=== PATIENT | male | born 1945 | race Caucasian/White ===

== ENCOUNTER → 2021-11-11 10:42 | Outpatient (CLI) | payer OTHER, SELFPAY ==
--- NOTE | 2021-11-11 11:01 | DI.CT.S_ITS ---
PROCEDURE: CT CERVICAL SPINE WO CON INDICATIONS: Paraplegia TECHNIQUE: Noncontrast 3 mm thick sections acquired from the skull base to the T4 level. Sagittal and coronal reformats were then constructed. For radiation dose reduction, the following was used: automated exposure control, adjustment of mA and/or kV according to patient size. COMPARISON: None. FINDINGS: Image quality: Excellent. Bones: Postsurgical changes compatible with T1-T4 posterior fusion and C2-C4 laminectomies.. Orthopedic hardware is in expected position. Orthopedic hardware is intact. No lucencies identified at the bone-hardware interface. Flowing osteophytes noted from C4-T1. Moderate C4-C5, C5-C6, C6-C7 and C7-T1 degenerative disc disease. Mild C2-C3 and C3-C4 degenerative disc disease. Severe bilateral C3-C4 facet hypertrophy. Moderate facet hypertrophy noted through the remainder of the cervical spine. No severe central canal narrowing. Severe right C3-C4 neural foraminal narrowing. Severe left C6-C7 neural foraminal narrowing. No fractures or dislocations. Visualized superior ribs are intact. Soft tissues: Prevertebral soft tissues are normal in thickness. No paravertebral hematomas. No apical pneumothoraces. IMPRESSION: 1. Multilevel degenerative disc disease. 2. Multilevel facet arthropathy. 3. No fracture. No acute osseous lesion. If symptoms and/or clinical suspicion for pathology persists, evaluation with MRI should be considered for further assessment. 4. Status post T1-T4 posterior fusion and C2-C4 laminectomies. Dictated by: Linda Plaza MD, PhD on 11/27/2021 at 11:09 Approved by: Linda Plaza MD, PhD on 11/27/2021 at 11:14
== END ==
PROVIDERS: PCP Internal Medicine; Referring Provider Physical Medicine & Rehabilitation Spinal Cord Injury Medicine; Visit Provider Physical Medicine & Rehabilitation Spinal Cord Injury Medicine
DX: G82.22 Paraplegia, incomplete (principal); M50.321 Other cervical disc degeneration at C4-C5 level; M48.02 Spinal stenosis, cervical region; M47.812 Spondylosis without myelopathy or radiculopathy, cervical region; Z98.1 Arthrodesis status
CPT/HCPCS: 72125

== ENCOUNTER → 2021-12-25 11:28 | Outpatient (CLI) | payer BC, SELFPAY ==
[2021-12-25 13:01] LABS: Hemoglobin A1C% w Est Avg Glu 5.5 % (4.0-6.0)
[2021-12-25 13:07] LABS: Alanine Aminotransferase 10 IU/L (<50); Albumin 4.2 g/dL (3.5-5.0); Albumin Globulin Ratio 1.6 (1.0-2.8); Alkaline Phosphatase 69 U/L (38-126); Aspartate Aminotransferase 18 IU/L (17-59); BUN Creatinine Ratio 26.9 (6-22); Bilirubin Total 0.9 mg/dL (0.2-1.3); Blood Urea Nitrogen 28 mg/dL (9-20); Calcium 9.4 mg/dL (8.4-10.2); Carbon Dioxide 34 mmol/L (22-32); Chloride 102 mmol/L (98-107); Estimated Glomerular Filt Rate > 60 mL/min (>60); Globulin 2.6 g/dL (1.7-4.1); Glucose 92 mg/dL (80-110); HEMOLYSIS 19 (0-50); Potassium 4.8 mmol/L (3.4-5.1); Sodium 138 mmol/L (137-145); Total Protein 6.8 g/dL (6.3-8.2)
== END ==
PROVIDERS: PCP Internal Medicine; Referring Provider Internal Medicine; Visit Provider Internal Medicine
DX: N18.31 Chronic kidney disease, stage 3a (principal); R73.03 Prediabetes
CPT/HCPCS: 36415; 80053; 83036

== ENCOUNTER 2022-09-16 09:30 | Outpatient (RCR) | payer OTHER, SELFPAY ==
--- NOTE | 2022-06-09 17:29 | PT.OIE ---
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) Past Medical History (Last Updated 11/19/21 @ 12:04 by Mariusz Hernandez MD) Asthma (~1962) Borderline diabetes BPH w urinary obs/LUTS Chronic renal failure, stage 3a Hypertension (~1979) Hypogonadism male Peripheral neuropathy Sleep apnea (~1998) Spinal cord injury Uses walker Uses wheelchair Past Surgical History (Last Updated 11/19/21 @ 12:04 by Mariusz Hernandez MD) Anesthesia Status post laminectomy (04/14/21) Visit Care Team Role Provider Type Júnior Choi Rai, DO Non-Staff Specialty: Family Practice Address: [address] [place] [address], [id number] Email: Mariusz Hernandez MD Primary Care Provider Physician Specialty: Internal Medicine Address: [address] [place] [address], [address], [address] Email: [email or web address] Provider Specialty: Address: Phone: Fax: Email: Adrienne Smith MD Attending Provider Non-Staff Referring Provider Specialty: Physical Medicine and Rehab Address: [address] [place] [address], [id number] Email: Physical Therapy Initial Evaluation PT-OP-A Visit Information Start: 06/08/22 12:11 Freq: Status: Active Protocol: Document 06/09/22 09:49 [facility]AK (Rec: 06/09/22 15:11 [facility] [id number]) Out-Patient Physical Therapy Visit Information Visit Information Visit Start Time 09:45 Visit Stop Time 10:30 Total Visit Minutes 45 Visit Number 1 Evaluation Information Evaluation Date 06/09/22 Precautions Precautions high fall risk PT-OP-B Current Condition Start: 06/08/22 12:11 Freq: Status: Active Protocol: Document 06/09/22 09:49 SAK (Rec: 06/09/22 10:30 [facility] [id number]) Current Condition History of Current Condition Onset Date 04/12/21 Current Complaints weakness, balance and gait difficulty History of Current Condition Fell while walking, fractured T34. Had fusion, 5 wks [facility], then at at [place] until July 23 2021. Was at [facility] until the end of January. [place], 2 story house. Bedroom and bathroom on main floor. Uses 3WW, 4WW, has canes. Wants to wean off walker. Balance and fear of falling limit his mobility, has had a couple near falls since going home. Also has some nerve pain left ant and post chest. Was instructed in HEP, not doing theraband exercises. Is working on standing balance. Very little feeling in thighs, has some in lower legs and feet, the most feeling is in bottom of feet. On and off bowel and bladder issues. Prior Treatments and Tests 05/21/22: check-up at [place], all medical issues st able Treatment Goals Patient/Caregiver Goals play golf again, drive, walk without walker, in and out of car independent Prior Functional Status Baseline Function- ADL's Independent Baseline Function- Mobility Independent Baseline Function- Gait no device Baseline Function- Recreation/Hobbies golf Current Functional Impairments (Reported) Functional Limitations- ADL's caregiver: transportation, cleaning, cooking. Modified independent with self-care. Functional Limitations- Mobility/Gait needs device, high risk for falls. Functional Limitations- Work/School retired Functional Limitations- Recreation/ golf Hobbies Personal Factors Other Personal Factors That May Effect PMH: LBP, neck pain Therapy/Recovery PT-OP-C Subjective Start: 06/08/22 12:11 Freq: Status: Active Protocol: Document 06/09/22 09:49 [facility] (Rec: 06/09/22 10:30 [facility] [id number]) OP-PT Pain Assessment Pain Assessment Grid Paper Pain Assessment Grid Completed Yes Location low back, left chest/upper back Intensity 3 Description Aching,Burning PT-OP-D Balance Start: 06/08/22 12:11 Freq: Status: Active Protocol: Document 06/09/22 09:49 [facility] (Rec: 06/14/22 17:24 [facility] [id number]) OP-PT Balance Assessment Sitting Balance Static Sitting Balance Ability Normal Dynamic Sitting Balance Ability Normal Standing Balance Static Standing Balance Ability Fair Dynamic Standing Balance Ability Poor Lester Balance Assessment Evaluation Sitting to Standing Ability Independent w/Hands Unsupported Stance Supervision- 2 minutes Sitting Unsupported, Feet on Floor Safely- 2 minutes Standing to Sitting Ability Assist, Use Legs on Chair Transfer Ability Safely, Hand Use Unsupported Stance- Eyes Closed Supervision, 10 seconds Unsupported Stance- Eyes Open Supervision to maintain Reaching Forward Standing Safely, 5 inches Pick- Up Object From Floor Requires Supervision Look Behind Shoulder - Standing Turns Sideways Only Turning 360 Degrees Requires Assistance Unsupported Stance, Alternating Feet on Assist to Prevent Fall Stair Unsupported Tandem Stance Balance Lost- Step/Stand Unilateral Leg Stance Unable,assist to not fall Total Score Lester Total Score (out of 56 points) 27 Cadet Fall Scale Copyright Permission PT-OP-E Functional Tests Start: 06/08/22 12:11 Freq: Status: Active Protocol: Document 06/09/22 09:49 [facility] (Rec: 06/14/22 17:24 [facility] [id number]) Functional Tests Timed Up and Go (TUG) Score 22 sec Comments 4WW PT-OP-G Mobility & Gait Start: 06/08/22 12:11 Freq: Status: Active Protocol: Document 06/09/22 09:49 [facility] (Rec: 06/14/22 17:24 [facility] [id number]) OP Mobility Evaluation Bed Mobility Rolling indep Supine to and from Sit indep OP Gait Assessment Gait Gait Assistance Required: Independent Assistive Devices Assistive Device 4 Wheeled Walker Orthotic/Prosthetic Devices or Brace: No Gait Deviations General Gait Pattern Ataxic,Decreased Stride Length ,Decreased Feet Clearance, Flexed Trunk,Wide Based Gait Factors Limiting Gait Function Factors Limiting Gait Function Abnormal Tonal Influences, Decreased Sensation,Decreased Strength,Poor Balance Stair Climbing Evaluation Technique/Endurance Stair Climbing Direction Ascend and Descend Comments Stair Climbing Comments sideways holding railing PT-OP-H Neuro Start: 06/08/22 12:11 Freq: Status: Active Protocol: Document 06/09/22 09:49 [facility] (Rec: 06/14/22 17:24 [facility] [id number]) Sensation Evaluation Gross Sensation Gross Sensation Left LE Impaired,Right LE Impaired Sensation Description Numbness PT-OP-J Posture/Palpation/Skin Start: 06/08/22 12:11 Freq: Status: Active Protocol: Document 06/09/22 09:49 [facility] (Rec: 06/14/22 17:24 [facility] [id number]) Posture Evaluation Position Standing Head/C-Spine Posture Forward Head T-Spine Posture Increased Kyphosis L-Spine Posture Flattened Skin Assessment Incisional Assessment Incision Appearance/Comments well-healed, decreased scar mobility PT-OP-K Range of Motion Start: 06/08/22 12:11 Freq: Status: Active Protocol: Document 06/09/22 09:49 [facility] (Rec: 06/14/22 17:24 [facility] [id number]) Cervical Spine Range of Motion Cervical Spine Active Testing Position Sitting ROM Limitations Soft Tissue Tightness Comments approx 75% Shoulder Goniometric Range of Motion Shoulder john Shoulder ROM WFL No Comments mild dec all motions Shoulder ROM Limitations Shoulder ROM Limitations Muscle Weakness Elbow/Forearm Range of Motion Elbow/Forearm john Elbow/Forearm ROM WFL Yes Wrist Goniometric Range of Motion Wrist john Wrist ROM WFL Yes Hip Goniometric Range of Motion Hip john Hip ROM WFL No Flexion w/Knee Flexed 90 Straight Leg Raise 65 Extension 0 Abduction 2 Internal Rotation 15 External Rotation 45 Hip ROM Limitations Hip ROM Limitations Soft Tissue Tightness,Muscle Weakness Knee Goniometric Range of Motion Knee john Knee ROM WFL Yes Ankle and Foot Goniometric Range of Motion Ankle and Foot john Dorsiflexion with Knee Flexed 5 Dorsiflexion with Knee Extended 0 Ankle and Foot ROM Limitations ROM Limitations Soft Tissue Tightness PT-OP-M Strength Start: 06/08/22 12:11 Freq: Status: Active Protocol: Document 06/09/22 09:49 [facility] (Rec: 06/14/22 17:24 [facility] [id number]) Cervical Spine Strength Cervical Spine Manual Muscle Testing Testing Position Sitting Flexion (C1-2) 4+ Good+ Extension 4+ Good+ Rotation Left 4+ Good+ Rotation Right 4+ Good+ Lateral Flexion Left (C3) 4+ Good+ Lateral Flexion Right (C3) 4+ Good+ Trunk Strength Trunk Manual Muscle Testing Flexion 3+ Fair+ Extension 3+ Fair+ Shoulder Strength Shoulder Manual Muscle Testing john Flexion 4 Good Extension 4 Good Abduction (C5) 4 Good External Rotation 4 Good Internal Rotation 4 Good Elbow/Forearm Strength Elbow and Forearm Manual Muscle Testing john Flexion (C6) 4+ Good+ Extension (C7) 4+ Good+ Hip Strength Hip Manual Muscle Testing john Flexion (L2) 4 Good Extension (S1) 3+ Fair+ Adduction 4 Good External Rotation 3+ Fair+ Internal Rotation 4 Good Knee Strength Knee Manual Muscle Testing john Flexion (S2) 4- Good- Extension (L3) 4- Good- Ankle/Foot Strength Ankle and Foot Manual Muscle Testing john Dorsiflexion (L4) 4 Good Plantarflexion (S1) 4 Good PT-OP-Q Treatments Start: 06/08/22 12:11 Freq: Status: Active Protocol: Document 06/09/22 09:49 [facility] (Rec: 06/14/22 17:24 [facility] [id number]) Self-Care/Home Management Treatment Education Patient Education Fall Risk,Home Exercise Program,Safety PT-OP-T Assessment and Plan Start: 06/08/22 12:11 Freq: Status: Active Protocol: Document 06/09/22 09:49 [facility] (Rec: 06/09/22 10:30 [facility] [id number]) Physical Therapy Assessment Rehab Potential Rehabilitation Potential Good Evaluation Complexity Number of Personal Factors/Comorbidities 1-2 Number of Body Systems Impaired 3 Clinical Presentation at Evaluation Evolving Impairments Impairments Balance,Coordination, Functional Mobility,Gait, Strength,Transfers Goals Four Impairment patient unable to golf due to weakness, gait and balance dysfunction Short Term Goal (STG) Patient to improve functional strength, gait, and balance sufficient to be able to put golf ball on tonja with CGA and hit ball with min assist for balance STG Duration 07/24/22 Detention Goal (LTG) Patient will improve his functional strength, gait, and balance to be able to play golf with supervision only LTG Duration 09/11/22 Three Impairment trunk and LE weakness Impairment requires use of UE's for all transfers Short Term Goal (STG) Patient to be instructed in HEP to support therapy activities in the clinic and demonstrate compliance STG Duration 07/07/22 Detention Goal (LTG) Improve patient's functional strength as evidenced by ability to transfer sit to stand from standard height chair without use of UE's x 10 LTG Duration 09/06/22 Two Impairment gait dysfunction Impairment uses 4WW, 3WW primarily, has to go up and down stairs sideways 6 min walk test with 3WW 681 ft Short Term Goal (STG) Patient will be able to safely ascend and descend stairs with alternating pattern and begin gait training with 2 canes on level surfaces STG Duration 07/24/22 [facility] Goal (LTG) Patient will be able to ambulate on all usual surfaces safely with 1-2 canes and improve 6 min walk test to at least 1000 ft to improve ability to ambulate successfully in the community. LTG Duration 09/06/22 One Impairment balance dysfunction Impairment Lester Balance score 27/56 indicating high fall risk Short Term Goal (STG) Improve Lester balance score to at least 37/56 to decrease risk of falls STG Duration 07/24/22 Detention Goal (LTG) Improve Lester Balance score to at least 45/56 to decrease risk of falls, allow for safe mobility in the home and community LTG Duration 09/06/22 Assessment Summary Assessment Patient presents to PT with function-limiting weakness, and gait and balance dysfunction, limiting his safety in the home and community s/p T3/4 fracture with fusion, extended stay at [facility] then [place] rehab. Is now home at his house/farm on [facility]. Has weakness john LE's right greater than left, ataxic gait , is at high risk of falls, ankle df right 2+/5, pf 3/5, knee ext 4+/5,flex 4/5, hip right 3-/5, left 3+/5. Ambulates with 4WW or 3WW, and has to go up and down stairs sideways. He would benefit highly from physical therapy to improve his strength, balance, gait, and safety to help him be more safe with mobility in his home and community. He appears highly motivated. We discussed POC and he is in agreement. Physical Therapy Plan Frequency and Duration Frequency of Treatment 2x/Week Duration of treatment (weeks) 12 Plan of Care Start Date 06/09/22 Plan of Care End Date 09/06/22 Therapeutic Interventions Therapeutic Interventions Balance Training,Gait Training ,Home Exercise Program,Manual Therapy,Neuromuscular Re- education,Patient/Caregiver Education,Self-Care/Home Management,Soft Tissue Mobilization,Therapeutic Activities,Therapeutic Exercises Next Visit Focus/Plan Next Note Type Treatment Note Next Visit Plan Patient to bring in written HEP previously issued in inpatient rehab; review HEP. Perform TUG and 5x sit to stand. Work in parallel bars for gait with dec support. Progress LE strengthening, balance, and gait.
--- NOTE | 2022-06-09 17:29 | PT.OPPOC ---
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) Visit Care Team Role Provider Type Júnior Choi Rai, DO Non-Staff Specialty: Family Practice Address: [address] [place] [address], [id number] Email: Mariusz Hernandez MD Primary Care Provider Physician Specialty: Internal Medicine Address: [address] [place] [address], [address], [address] Email: [email or web address] Family Provider Specialty: Address: Phone: Fax: Email: Adrienne Smith MD Attending Provider Non-Staff Referring Provider Specialty: Physical Medicine and Rehab Address: [address] [place] [address], [address] Email: Plan Of Care PT-OP-T Assessment and Plan Start: 06/08/22 12:11 Freq: Status: Active Protocol: Document 06/09/22 09:49 [facility] (Rec: 06/09/22 10:30 [facility] [id number]) Physical Therapy Assessment Rehab Potential Rehabilitation Potential Good Evaluation Complexity Number of Personal Factors/Comorbidities 1-2 Number of Body Systems Impaired 3 Clinical Presentation at Evaluation Evolving Impairments Impairments Balance,Coordination, Functional Mobility,Gait, Strength,Transfers Goals Four Impairment patient unable to golf due to weakness, gait and balance dysfunction Short Term Goal (STG) Patient to improve functional strength, gait, and balance sufficient to be able to put golf ball on tonja with CGA and hit ball with min assist for balance STG Duration 07/24/22 [facility] Goal (LTG) Patient will improve his functional strength, gait, and balance to be able to play golf with supervision only LTG Duration 09/11/22 Three Impairment trunk and LE weakness Impairment requires use of UE's for all transfers Short Term Goal (STG) Patient to be instructed in HEP to support therapy activities in the clinic and demonstrate compliance STG Duration 07/07/22 [facility] Goal (LTG) Improve patient's functional strength as evidenced by ability to transfer sit to stand from standard height chair without use of UE's x 10 LTG Duration 09/06/22 Two Impairment gait dysfunction Impairment uses 4WW, 3WW primarily, has to go up and down stairs sideways 6 min walk test with 3WW 681 ft Short Term Goal (STG) Patient will be able to safely ascend and descend stairs with alternating pattern and begin gait training with 2 canes on level surfaces STG Duration 07/24/22 [facility] Goal (LTG) Patient will be able to ambulate on all usual surfaces safely with 1-2 canes and improve 6 min walk test to at least 1000 ft to improve ability to ambulate successfully in the community. LTG Duration 09/06/22 One Impairment balance dysfunction Impairment Lester Balance score 27/56 indicating high fall risk Short Term Goal (STG) Improve Lester balance score to at least 37/56 to decrease risk of falls STG Duration 07/24/22 [facility] Goal (LTG) Improve Lester Balance score to at least 45/56 to decrease risk of falls, allow for safe mobility in the home and community LTG Duration 09/06/22 Assessment Summary Assessment Patient presents to PT with function-limiting weakness, and gait and balance dysfunction, limiting his safety in the home and community s/p T3/4 fracture with fusion, extended stay at [facility] then [place] rehab. Is now home at his house/farm on [facility]. Has weakness john LE's right greater than left, ataxic gait , is at high risk of falls, ankle df right 2+/5, pf 3/5, knee ext 4+/5,flex 4/5, hip right 3-/5, left 3+/5. Ambulates with 4WW or 3WW, and has to go up and down stairs sideways. He would benefit highly from physical therapy to improve his strength, balance, gait, and safety to help him be more safe with mobility in his home and community. He appears highly motivated. We discussed POC and he is in agreement. Physical Therapy Plan Frequency and Duration Frequency of Treatment 2x/Week Duration of treatment (weeks) 12 Plan of Care Start Date 06/09/22 Plan of Care End Date 09/06/22 Therapeutic Interventions Therapeutic Interventions Balance Training,Gait Training ,Home Exercise Program,Manual Therapy,Neuromuscular Re- education,Patient/Caregiver Education,Self-Care/Home Management,Soft Tissue Mobilization,Therapeutic Activities,Therapeutic Exercises Next Visit Focus/Plan Next Note Type Treatment Note Next Visit Plan Patient to bring in written HEP previously issued in inpatient rehab; review HEP. Perform TUG and 5x sit to stand. Work in parallel bars for gait with dec support. Progress LE strengthening, balance, and gait. Plan of Care Dates Plan of Care Start Date 06/09/22 Plan of Care End Date 09/06/22 Electronically Signed by: Natalie Zhang, PT 06/14/22 [id number] If you are in agreement with this Plan of Care, please return a signed and dated copy. I have reviewed this Plan of Care and certify that the skilled therapy services above are required to meet the patient?s needs. Physician Signature Date Printed Name and Credentials Clinical Instructor Signature Printed Name and Credentials
--- NOTE | 2022-06-16 16:37 | PT.OTN ---
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) Physical Therapy Treatment Note PT-OP-A Visit Information Start: 06/08/22 12:11 Freq: Status: Active Protocol: Document 06/16/22 10:30 SAK (Rec: 06/16/22 11:18 SAK [id number]) Out-Patient Physical Therapy Visit Information Visit Information Visit Type Treatment Note Visit Start Time 10:30 Visit Stop Time 11:15 Total Visit Minutes 45 Visit Number 2 Evaluation Information Evaluation Date 06/09/22 Precautions Precautions high fall risk PT-OP-B Current Condition Start: 06/08/22 12:11 Freq: Status: Active Protocol: Document 06/16/22 10:30 SAK (Rec: 06/16/22 11:18 SAK [id number]) Current Condition History of Current Condition Onset Date 04/12/21 Current Complaints weakness, balance and gait difficulty History of Current Condition Fell while walking, fractured T34. Had fusion, 5 wks [facility], then at at [place] until July 23 2021. Was at [facility] until the end of January. Now at home on [facility] Bedroom and bathroom on main floor. Uses 3WW, 4WW, has canes. Wants to wean off walker. Balance and fear of falling limit his mobility, has had a couple near falls since going home. Also has some nerve pain left ant and post chest. Was instructed in HEP, not doing theraband exercises. Is working on standing balance. Very little feeling in thighs, has some in lower legs and feet, the most feeling is in bottom of feet. On and off bowel and bladder issues. Prior Treatments and Tests 05/21/22: check-up at [place], all medical issues st able Treatment Goals Patient/Caregiver Goals play golf again, drive, walk without walker, in and out of car independent PT-OP-C Subjective Start: 06/08/22 12:11 Freq: Status: Active Protocol: Document 06/16/22 10:30 SAK (Rec: 06/16/22 11:18 SAK [id number]) OP-PT Subjective Patient Comments Patient Comments No new c/o. Not sure if walker right height. Working on balance at home PT-OP-D Balance Start: 06/08/22 12:11 Freq: Status: Active Protocol: Document 06/09/22 09:49 [facility] (Rec: 06/14/22 17:24 [facility] [id number]) OP-PT Balance Assessment Sitting Balance Static Sitting Balance Ability Normal Dynamic Sitting Balance Ability Normal Standing Balance Static Standing Balance Ability Fair Dynamic Standing Balance Ability Poor Lester Balance Assessment Evaluation Sitting to Standing Ability Independent w/Hands Unsupported Stance Supervision- 2 minutes Sitting Unsupported, Feet on Floor Safely- 2 minutes Standing to Sitting Ability Assist, Use Legs on Chair Transfer Ability Safely, Hand Use Unsupported Stance- Eyes Closed Supervision, 10 seconds Unsupported Stance- Eyes Open Supervision to maintain Reaching Forward Standing Safely, 5 inches Pick- Up Object From Floor Requires Supervision Look Behind Shoulder - Standing Turns Sideways Only Turning 360 Degrees Requires Assistance Unsupported Stance, Alternating Feet on Assist to Prevent Fall Stair Unsupported Tandem Stance Balance Lost- Step/Stand Unilateral Leg Stance Unable,assist to not fall Total Score Lester Total Score (out of 56 points) 27 Cadet Fall Scale Copyright Permission PT-OP-E Functional Tests Start: 06/08/22 12:11 Freq: Status: Active Protocol: Document 06/09/22 09:49 [facility] (Rec: 06/14/22 17:24 [facility] [id number]) Functional Tests Timed Up and Go (TUG) Score 22 sec Comments 4WW PT-OP-G Mobility & Gait Start: 06/08/22 12:11 Freq: Status: Active Protocol: Document 06/09/22 09:49 [facility] (Rec: 06/14/22 17:24 [facility] [id number]) OP Mobility Evaluation Bed Mobility Rolling indep Supine to and from Sit indep OP Gait Assessment Gait Gait Assistance Required: Independent Assistive Devices Assistive Device 4 Wheeled Walker Orthotic/Prosthetic Devices or Brace: No Gait Deviations General Gait Pattern Ataxic,Decreased Stride Length ,Decreased Feet Clearance, Flexed Trunk,Wide Based Gait Factors Limiting Gait Function Factors Limiting Gait Function Abnormal Tonal Influences, Decreased Sensation,Decreased Strength,Poor Balance Stair Climbing Evaluation Technique/Endurance Stair Climbing Direction Ascend and Descend Comments Stair Climbing Comments sideways holding railing PT-OP-H Neuro Start: 06/08/22 12:11 Freq: Status: Active Protocol: Document 06/09/22 09:49 [facility] (Rec: 06/14/22 17:24 [facility] [id number]) Sensation Evaluation Gross Sensation Gross Sensation Left LE Impaired,Right LE Impaired Sensation Description Numbness PT-OP-J Posture/Palpation/Skin Start: 06/08/22 12:11 Freq: Status: Active Protocol: Document 06/09/22 09:49 [facility] (Rec: 06/14/22 17:24 [facility] [id number]) Posture Evaluation Position Standing Head/C-Spine Posture Forward Head T-Spine Posture Increased Kyphosis L-Spine Posture Flattened Skin Assessment Incisional Assessment Incision Appearance/Comments well-healed, decreased scar mobility PT-OP-K Range of Motion Start: 06/08/22 12:11 Freq: Status: Active Protocol: Document 06/09/22 09:49 [facility] (Rec: 06/14/22 17:24 [facility] [id number]) Cervical Spine Range of Motion Cervical Spine Active Testing Position Sitting ROM Limitations Soft Tissue Tightness Comments approx 75% Shoulder Goniometric Range of Motion Shoulder john Shoulder ROM WFL No Comments mild dec all motions Shoulder ROM Limitations Shoulder ROM Limitations Muscle Weakness Elbow/Forearm Range of Motion Elbow/Forearm john Elbow/Forearm ROM WFL Yes Wrist Goniometric Range of Motion Wrist john Wrist ROM WFL Yes Hip Goniometric Range of Motion Hip john Hip ROM WFL No Flexion w/Knee Flexed 90 Straight Leg Raise 65 Extension 0 Abduction 2 Internal Rotation 15 External Rotation 45 Hip ROM Limitations Hip ROM Limitations Soft Tissue Tightness,Muscle Weakness Knee Goniometric Range of Motion Knee john Knee ROM WFL Yes Ankle and Foot Goniometric Range of Motion Ankle and Foot john Dorsiflexion with Knee Flexed 5 Dorsiflexion with Knee Extended 0 Ankle and Foot ROM Limitations ROM Limitations Soft Tissue Tightness PT-OP-M Strength Start: 06/08/22 12:11 Freq: Status: Active Protocol: Document 06/09/22 09:49 [facility] (Rec: 06/14/22 17:24 [facility] [id number]) Cervical Spine Strength Cervical Spine Manual Muscle Testing Testing Position Sitting Flexion (C1-2) 4+ Good+ Extension 4+ Good+ Rotation Left 4+ Good+ Rotation Right 4+ Good+ Lateral Flexion Left (C3) 4+ Good+ Lateral Flexion Right (C3) 4+ Good+ Trunk Strength Trunk Manual Muscle Testing Flexion 3+ Fair+ Extension 3+ Fair+ Shoulder Strength Shoulder Manual Muscle Testing john Flexion 4 Good Extension 4 Good Abduction (C5) 4 Good External Rotation 4 Good Internal Rotation 4 Good Elbow/Forearm Strength Elbow and Forearm Manual Muscle Testing john Flexion (C6) 4+ Good+ Extension (C7) 4+ Good+ Hip Strength Hip Manual Muscle Testing john Flexion (L2) 4 Good Extension (S1) 3+ Fair+ Adduction 4 Good External Rotation 3+ Fair+ Internal Rotation 4 Good Knee Strength Knee Manual Muscle Testing john Flexion (S2) 4- Good- Extension (L3) 4- Good- Ankle/Foot Strength Ankle and Foot Manual Muscle Testing john Dorsiflexion (L4) 4 Good Plantarflexion (S1) 4 Good PT-OP-Q Treatments Start: 06/08/22 12:11 Freq: Status: Active Protocol: Document 06/16/22 10:30 [facility] (Rec: 06/16/22 11:18 [facility] [id number]) Therapeutic Exercises Standing Exercises HC stretch Equipment Used LIA Reps/Minutes 2x10 heel/toe raise Reps/Minutes 10x hamstring curl Reps/Minutes 10x hip ext Reps/Minutes 10x hip ab Reps/Minutes 10x march Reps/Minutes 10x chair squat Reps/Minutes 10x Gait Training Gait Activity 2 SPC Description gait training with SPC Device Used SPC x 2, SPC x 1 Distance/Duration 100 x 1, 150 ft x 1 Treatment Focus gait sequencing, safety fwd/bck/side Description walking Device Used parallel bars Level of Assistance CGA Treatment Focus dec support, safety, upright posture Neuro Re-Education Treatment Balance Activities balance board Details EO, WBOS bal and wt shift f/b, side Reps/Duration 5 min Self-Care/Home Management Treatment Education Patient Education Fall Risk,Home Exercise Program,Safety Other Education correct walker height; adjusted down 1 notch PT-OP-T Assessment and Plan Start: 06/08/22 12:11 Freq: Status: Active Protocol: Document 06/16/22 10:30 [facility] (Rec: 06/16/22 11:18 [facility] [id number]) Physical Therapy Assessment Impairments Impairments Balance,Coordination, Functional Mobility,Gait, Strength,Transfers Goals Four Impairment patient unable to golf due to weakness, gait and balance dysfunction Short Term Goal (STG) Patient to improve functional strength, gait, and balance sufficient to be able to put golf ball on tonja with CGA and hit ball with min assist for balance STG Duration 07/24/22 Porter Sample Case Goal (LTG) Patient will improve his functional strength, gait, and balance to be able to play golf with supervision only LTG Duration 09/11/22 Three Impairment trunk and LE weakness Impairment requires use of UE's for all transfers Short Term Goal (STG) Patient to be instructed in HEP to support therapy activities in the clinic and demonstrate compliance STG Duration 07/07/22 Intermediate Goal (LTG) Improve patient's functional strength as evidenced by ability to transfer sit to stand from standard height chair without use of UE's x 10 LTG Duration 09/06/22 Two Impairment gait dysfunction Impairment uses 4WW, 3WW primarily, has to go up and down stairs sideways 6 min walk test with 3WW 681 ft Short Term Goal (STG) Patient will be able to safely ascend and descend stairs with alternating pattern and begin gait training with 2 canes on level surfaces STG Duration 07/24/22 Intermediate Goal (LTG) Patient will be able to ambulate on all usual surfaces safely with 1-2 canes and improve 6 min walk test to at least 1000 ft to improve ability to ambulate successfully in the community. LTG Duration 09/06/22 One Impairment balance dysfunction Impairment Lester Balance score 27/56 indicating high fall risk Short Term Goal (STG) Improve Lester balance score to at least 37/56 to decrease risk of falls STG Duration 07/24/22 Intermediate Goal (LTG) Improve Lester Balance score to at least 45/56 to decrease risk of falls, allow for safe mobility in the home and community LTG Duration 09/06/22 Physical Therapy Plan Frequency and Duration Frequency of Treatment 2x/Week Duration of treatment (weeks) 12 Plan of Care Start Date 06/09/22 Plan of Care End Date 09/06/22 Therapeutic Interventions Therapeutic Interventions Balance Training,Gait Training ,Home Exercise Program,Manual Therapy,Neuromuscular Re- education,Patient/Caregiver Education,Self-Care/Home Management,Soft Tissue Mobilization,Therapeutic Activities,Therapeutic Exercises Next Visit Focus/Plan Next Note Type Treatment Note Next Visit Plan Review HEP, continue progression of gait training, balance training, strengthening. Perform TUG and 5x sit to stand.
--- NOTE | 2022-06-22 10:30 | PT.OTN ---
Current Diagnoses Paraplegia, unspecified (06/22/22) Paraplegia, incomplete (06/22/22) Physical Therapy Treatment Note PT-OP-A Visit Information Start: 06/08/22 12:11 Freq: Status: Active Protocol: Document 06/22/22 09:49 SP (Rec: 06/22/22 10:34 SP [id number]) Out-Patient Physical Therapy Visit Information Visit Information Visit Type Treatment Note Visit Start Time 09:49 Visit Stop Time 10:30 Total Visit Minutes 41 Visit Number 3 Number of [employer] Visits 1 Evaluation Information Evaluation Date 06/09/22 Precautions Precautions high fall risk PT-OP-B Current Condition Start: 06/08/22 12:11 Freq: Status: Active Protocol: Document 06/16/22 10:30 SAK (Rec: 06/16/22 11:18 SAK [id number]) Current Condition History of Current Condition Onset Date 04/12/21 Current Complaints weakness, balance and gait difficulty History of Current Condition Fell while walking, fractured T34. Had fusion, 5 wks [facility], then at at [place] until July 23 2021. Was at [facility] until the end of January. Now at home on [facility], [address] [place] [address]. Bedroom and bathroom on main floor. Uses 3WW, 4WW, has canes. Wants to wean off walker. Balance and fear of falling limit his mobility, has had a couple near falls since going home. Also has some nerve pain left ant and post chest. Was instructed in HEP, not doing theraband exercises. Is working on standing balance. Very little feeling in thighs, has some in lower legs and feet, the most feeling is in bottom of feet. On and off bowel and bladder issues. Prior Treatments and Tests 05/21/22: check-up at [place], all medical issues st able Treatment Goals Patient/Caregiver Goals play golf again, drive, walk without walker, in and out of car independent PT-OP-C Subjective Start: 06/08/22 12:11 Freq: Status: Active Protocol: Document 06/22/22 09:49 SP (Rec: 06/22/22 10:34 SP [id number]) OP-PT Subjective Patient Comments Patient Comments Pt reports did well after last tx, like working on balance and walking with canes. PT-OP-D Balance Start: 06/08/22 12:11 Freq: Status: Active Protocol: Document 06/09/22 09:49 [facility] (Rec: 06/14/22 17:24 [facility] [id number]) OP-PT Balance Assessment Sitting Balance Static Sitting Balance Ability Normal Dynamic Sitting Balance Ability Normal Standing Balance Static Standing Balance Ability Fair Dynamic Standing Balance Ability Poor Lester Balance Assessment Evaluation Sitting to Standing Ability Independent w/Hands Unsupported Stance Supervision- 2 minutes Sitting Unsupported, Feet on Floor Safely- 2 minutes Standing to Sitting Ability Assist, Use Legs on Chair Transfer Ability Safely, Hand Use Unsupported Stance- Eyes Closed Supervision, 10 seconds Unsupported Stance- Eyes Open Supervision to maintain Reaching Forward Standing Safely, 5 inches Pick- Up Object From Floor Requires Supervision Look Behind Shoulder - Standing Turns Sideways Only Turning 360 Degrees Requires Assistance Unsupported Stance, Alternating Feet on Assist to Prevent Fall Stair Unsupported Tandem Stance Balance Lost- Step/Stand Unilateral Leg Stance Unable,assist to not fall Total Score Lester Total Score (out of 56 points) 27 Cadet Fall Scale Copyright Permission PT-OP-E Functional Tests Start: 06/08/22 12:11 Freq: Status: Active Protocol: Document 06/09/22 09:49 [facility] (Rec: 06/14/22 17:24 [facility] [id number]) Functional Tests Timed Up and Go (TUG) Score 22 sec Comments 4WW PT-OP-G Mobility & Gait Start: 06/08/22 12:11 Freq: Status: Active Protocol: Document 06/09/22 09:49 [facility] (Rec: 06/14/22 17:24 [facility] [id number]) OP Mobility Evaluation Bed Mobility Rolling indep Supine to and from Sit indep OP Gait Assessment Gait Gait Assistance Required: Independent Assistive Devices Assistive Device 4 Wheeled Walker Orthotic/Prosthetic Devices or Brace: No Gait Deviations General Gait Pattern Ataxic,Decreased Stride Length ,Decreased Feet Clearance, Flexed Trunk,Wide Based Gait Factors Limiting Gait Function Factors Limiting Gait Function Abnormal Tonal Influences, Decreased Sensation,Decreased Strength,Poor Balance Stair Climbing Evaluation Technique/Endurance Stair Climbing Direction Ascend and Descend Comments Stair Climbing Comments sideways holding railing PT-OP-H Neuro Start: 06/08/22 12:11 Freq: Status: Active Protocol: Document 06/09/22 09:49 [facility] (Rec: 06/14/22 17:24 [facility] [id number]) Sensation Evaluation Gross Sensation Gross Sensation Left LE Impaired,Right LE Impaired Sensation Description Numbness PT-OP-J Posture/Palpation/Skin Start: 06/08/22 12:11 Freq: Status: Active Protocol: Document 06/09/22 09:49 [facility] (Rec: 06/14/22 17:24 [facility] [id number]) Posture Evaluation Position Standing Head/C-Spine Posture Forward Head T-Spine Posture Increased Kyphosis L-Spine Posture Flattened Skin Assessment Incisional Assessment Incision Appearance/Comments well-healed, decreased scar mobility PT-OP-K Range of Motion Start: 06/08/22 12:11 Freq: Status: Active Protocol: Document 06/09/22 09:49 [facility] (Rec: 06/14/22 17:24 [facility] [id number]) Cervical Spine Range of Motion Cervical Spine Active Testing Position Sitting ROM Limitations Soft Tissue Tightness Comments approx 75% Shoulder Goniometric Range of Motion Shoulder john Shoulder ROM WFL No Comments mild dec all motions Shoulder ROM Limitations Shoulder ROM Limitations Muscle Weakness Elbow/Forearm Range of Motion Elbow/Forearm john Elbow/Forearm ROM WFL Yes Wrist Goniometric Range of Motion Wrist john Wrist ROM WFL Yes Hip Goniometric Range of Motion Hip john Hip ROM WFL No Flexion w/Knee Flexed 90 Straight Leg Raise 65 Extension 0 Abduction 2 Internal Rotation 15 External Rotation 45 Hip ROM Limitations Hip ROM Limitations Soft Tissue Tightness,Muscle Weakness Knee Goniometric Range of Motion Knee john Knee ROM WFL Yes Ankle and Foot Goniometric Range of Motion Ankle and Foot john Dorsiflexion with Knee Flexed 5 Dorsiflexion with Knee Extended 0 Ankle and Foot ROM Limitations ROM Limitations Soft Tissue Tightness PT-OP-M Strength Start: 06/08/22 12:11 Freq: Status: Active Protocol: Document 06/09/22 09:49 [facility] (Rec: 06/14/22 17:24 [facility] [id number]) Cervical Spine Strength Cervical Spine Manual Muscle Testing Testing Position Sitting Flexion (C1-2) 4+ Good+ Extension 4+ Good+ Rotation Left 4+ Good+ Rotation Right 4+ Good+ Lateral Flexion Left (C3) 4+ Good+ Lateral Flexion Right (C3) 4+ Good+ Trunk Strength Trunk Manual Muscle Testing Flexion 3+ Fair+ Extension 3+ Fair+ Shoulder Strength Shoulder Manual Muscle Testing john Flexion 4 Good Extension 4 Good Abduction (C5) 4 Good External Rotation 4 Good Internal Rotation 4 Good Elbow/Forearm Strength Elbow and Forearm Manual Muscle Testing john Flexion (C6) 4+ Good+ Extension (C7) 4+ Good+ Hip Strength Hip Manual Muscle Testing john Flexion (L2) 4 Good Extension (S1) 3+ Fair+ Adduction 4 Good External Rotation 3+ Fair+ Internal Rotation 4 Good Knee Strength Knee Manual Muscle Testing john Flexion (S2) 4- Good- Extension (L3) 4- Good- Ankle/Foot Strength Ankle and Foot Manual Muscle Testing john Dorsiflexion (L4) 4 Good Plantarflexion (S1) 4 Good PT-OP-Q Treatments Start: 06/08/22 12:11 Freq: Status: Active Protocol: Document 06/22/22 09:49 SP (Rec: 06/22/22 10:34 SP [id number]) Therapeutic Exercises Sitting Exercises ankle DF, EV Sitting Exercise Name added to HEP Side bilateral Resistance R>L Reps/Minutes x10 Comments cued slow con/eccentric control assist DF ft clearance STS Sitting Exercise Name baseline assessment 06/22- added to HEP 10 reps 3x/day Equipment Used mesh chair, BUE support ascend, no UE support desc but flops last 3 Reps/Minutes 5x STS 27 sec- tends to use chair behind B calves at times Comments cued slow eccentric control post testing and use UEs for safety needed. Standing Exercises mini squat Standing Exercise Name added toHEP Equipment Used rail, chair behind target Reps/Minutes x10 Comments cued buttocks back heel/toe raise Standing Exercise Name HEP reviewed Equipment Used rail Reps/Minutes 10x 2 Comments cued posture, cued not lean back TR hip ext Standing Exercise Name HEP reviewed Equipment Used rail Reps/Minutes 10x 2 Comments cued posture, DF hip ab Standing Exercise Name HEP reviewed Equipment Used rail Reps/Minutes 10 x2 Comments cued posture, DF Gait Training Gait Activity 2 SPC Description gait training with SPC Device Used SPC x 2, SPC x 1 Level of Assistance CG- 10%A Surface tile, carpet Distance/Duration 20 ft lap and 150 ft; 117 ft x 1 Treatment Focus gait sequencing, safety, posturing, foot clearance Comments cued increase posturing to allow SPC and R>L foot clearance Neuro Re-Education Treatment Balance Activities TUG Details 06/22 baseline assessment Surface w/ 3WW Reps/Duration 20 sec Comments ed proper use brakes pre asc/ desc and use UE support descend sit as well for safety PT-OP-T Assessment and Plan Start: 06/08/22 12:11 Freq: Status: Active Protocol: Document 06/22/22 09:49 SP (Rec: 06/22/22 10:34 SP [id number]) Physical Therapy Assessment Goals Four Impairment patient unable to golf due to weakness, gait and balance dysfunction Short Term Goal (STG) Patient to improve functional strength, gait, and balance sufficient to be able to put golf ball on tonja with CGA and hit ball with min assist for balance STG Duration 07/24/22 Longterm Goal (LTG) Patient will improve his functional strength, gait, and balance to be able to play golf with supervision only LTG Duration 09/11/22 Three Impairment trunk and LE weakness Impairment requires use of UE's for all transfers Short Term Goal (STG) Patient to be instructed in HEP to support therapy activities in the clinic and demonstrate compliance STG Duration 07/07/22 Hot Metal Mixer Operator Goal (LTG) Improve patient's functional strength as evidenced by ability to transfer sit to stand from standard height chair without use of UE's x 10 LTG Duration 09/06/22 Two Impairment gait dysfunction Impairment uses 4WW, 3WW primarily, has to go up and down stairs sideways 6 min walk test with 3WW 681 ft Short Term Goal (STG) Patient will be able to safely ascend and descend stairs with alternating pattern and begin gait training with 2 canes on level surfaces STG Duration 07/24/22 [employer] Metal Mixer Operator Goal (LTG) Patient will be able to ambulate on all usual surfaces safely with 1-2 canes and improve 6 min walk test to at least 1000 ft to improve ability to ambulate successfully in the community. LTG Duration 09/06/22 One Impairment balance dysfunction Impairment Lester Balance score 27/56 indicating high fall risk Short Term Goal (STG) Improve Lester balance score to at least 37/56 to decrease risk of falls STG Duration 07/24/22 Hot Metal Mixer Operator Goal (LTG) Improve Lester Balance score to at least 45/56 to decrease risk of falls, allow for safe mobility in the home and community LTG Duration 09/06/22 Assessment Summary Assessment Pt improved full stand and eccentric sitting with less posterior LE support of chair post education and repetitions . Pt improved postural corrections with cues throughout tx during gait and standing HEP. No adverse affects to added STS, resisted B ankle strengthening and mini squats to HEP, felt good progression to make easier to get around. Physical Therapy Plan Frequency and Duration Frequency of Treatment 2x/Week Duration of treatment (weeks) 12 Plan of Care Start Date 06/09/22 Plan of Care End Date 09/06/22 Therapeutic Interventions Therapeutic Interventions Balance Training,Gait Training ,Home Exercise Program,Manual Therapy,Neuromuscular Re- education,Patient/Caregiver Education,Self-Care/Home Management,Soft Tissue Mobilization,Therapeutic Activities,Therapeutic Exercises Next Visit Focus/Plan Next Note Type Treatment Note Next Visit Plan Review HEP: added mini squat, STS and resisted ankle DF/ EV. POC: Continue progression of gait training, balance training, strengthening.
--- NOTE | 2022-06-25 10:30 | PT.OTN ---
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) Physical Therapy Treatment Note PT-OP-A Visit Information Start: 06/08/22 12:11 Freq: Status: Active Protocol: Document 06/25/22 09:50 SP (Rec: 06/25/22 10:32 SP [id number]) Out-Patient Physical Therapy Visit Information Visit Information Visit Type Treatment Note Visit Start Time 09:50 Visit Stop Time 10:30 Total Visit Minutes 40 Visit Number 4 Number of UNDERWEAR CUTTER Visits 2 Evaluation Information Evaluation Date 06/09/22 Precautions Precautions high fall risk PT-OP-B Current Condition Start: 06/08/22 12:11 Freq: Status: Active Protocol: Document 06/16/22 10:30 SAK (Rec: 06/16/22 11:18 SAK [id number]) Current Condition History of Current Condition Onset Date 04/12/21 Current Complaints weakness, balance and gait difficulty History of Current Condition Fell while walking, fractured T34. Had fusion, 5 wks [facility], then at at [place] until July 23 2021. Was at [facility] until the end of January. Now at home on [facility], [address] [facility]. Bedroom and bathroom on main floor. Uses 3WW, 4WW, has canes. Wants to wean off walker. Balance and fear of falling limit his mobility, has had a couple near falls since going home. Also has some nerve pain left ant and post chest. Was instructed in HEP, not doing theraband exercises. Is working on standing balance. Very little feeling in thighs, has some in lower legs and feet, the most feeling is in bottom of feet. On and off bowel and bladder issues. Prior Treatments and Tests 05/21/22: check-up at [place], all medical issues st able Treatment Goals Patient/Caregiver Goals play golf again, drive, walk without walker, in and out of car independent PT-OP-C Subjective Start: 06/08/22 12:11 Freq: Status: Active Protocol: Document 06/25/22 09:50 SP (Rec: 06/25/22 10:32 SP [id number]) OP-PT Subjective Patient Comments Patient Comments Pt did well after last tx. PT-OP-D Balance Start: 06/08/22 12:11 Freq: Status: Active Protocol: Document 06/09/22 09:49 [facility] (Rec: 06/14/22 17:24 [facility] [id number]) OP-PT Balance Assessment Sitting Balance Static Sitting Balance Ability Normal Dynamic Sitting Balance Ability Normal Standing Balance Static Standing Balance Ability Fair Dynamic Standing Balance Ability Poor Lester Balance Assessment Evaluation Sitting to Standing Ability Independent w/Hands Unsupported Stance Supervision- 2 minutes Sitting Unsupported, Feet on Floor Safely- 2 minutes Standing to Sitting Ability Assist, Use Legs on Chair Transfer Ability Safely, Hand Use Unsupported Stance- Eyes Closed Supervision, 10 seconds Unsupported Stance- Eyes Open Supervision to maintain Reaching Forward Standing Safely, 5 inches Pick- Up Object From Floor Requires Supervision Look Behind Shoulder - Standing Turns Sideways Only Turning 360 Degrees Requires Assistance Unsupported Stance, Alternating Feet on Assist to Prevent Fall Stair Unsupported Tandem Stance Balance Lost- Step/Stand Unilateral Leg Stance Unable,assist to not fall Total Score Lester Total Score (out of 56 points) 27 Cadet Fall Scale Copyright Permission PT-OP-E Functional Tests Start: 06/08/22 12:11 Freq: Status: Active Protocol: Document 06/09/22 09:49 [facility] (Rec: 06/14/22 17:24 [facility] [id number]) Functional Tests Timed Up and Go (TUG) Score 22 sec Comments 4WW PT-OP-G Mobility & Gait Start: 06/08/22 12:11 Freq: Status: Active Protocol: Document 06/09/22 09:49 [facility] (Rec: 06/14/22 17:24 [facility] [id number]) OP Mobility Evaluation Bed Mobility Rolling indep Supine to and from Sit indep OP Gait Assessment Gait Gait Assistance Required: Independent Assistive Devices Assistive Device 4 Wheeled Walker Orthotic/Prosthetic Devices or Brace: No Gait Deviations General Gait Pattern Ataxic,Decreased Stride Length ,Decreased Feet Clearance, Flexed Trunk,Wide Based Gait Factors Limiting Gait Function Factors Limiting Gait Function Abnormal Tonal Influences, Decreased Sensation,Decreased Strength,Poor Balance Stair Climbing Evaluation Technique/Endurance Stair Climbing Direction Ascend and Descend Comments Stair Climbing Comments sideways holding railing PT-OP-H Neuro Start: 06/08/22 12:11 Freq: Status: Active Protocol: Document 06/09/22 09:49 [facility] (Rec: 06/14/22 17:24 [facility] [id number]) Sensation Evaluation Gross Sensation Gross Sensation Left LE Impaired,Right LE Impaired Sensation Description Numbness PT-OP-J Posture/Palpation/Skin Start: 06/08/22 12:11 Freq: Status: Active Protocol: Document 06/09/22 09:49 [facility] (Rec: 06/14/22 17:24 [facility] [id number]) Posture Evaluation Position Standing Head/C-Spine Posture Forward Head T-Spine Posture Increased Kyphosis L-Spine Posture Flattened Skin Assessment Incisional Assessment Incision Appearance/Comments well-healed, decreased scar mobility PT-OP-K Range of Motion Start: 06/08/22 12:11 Freq: Status: Active Protocol: Document 06/09/22 09:49 [facility] (Rec: 06/14/22 17:24 [facility] [id number]) Cervical Spine Range of Motion Cervical Spine Active Testing Position Sitting ROM Limitations Soft Tissue Tightness Comments approx 75% Shoulder Goniometric Range of Motion Shoulder john Shoulder ROM WFL No Comments mild dec all motions Shoulder ROM Limitations Shoulder ROM Limitations Muscle Weakness Elbow/Forearm Range of Motion Elbow/Forearm john Elbow/Forearm ROM WFL Yes Wrist Goniometric Range of Motion Wrist john Wrist ROM WFL Yes Hip Goniometric Range of Motion Hip john Hip ROM WFL No Flexion w/Knee Flexed 90 Straight Leg Raise 65 Extension 0 Abduction 2 Internal Rotation 15 External Rotation 45 Hip ROM Limitations Hip ROM Limitations Soft Tissue Tightness,Muscle Weakness Knee Goniometric Range of Motion Knee john Knee ROM WFL Yes Ankle and Foot Goniometric Range of Motion Ankle and Foot john Dorsiflexion with Knee Flexed 5 Dorsiflexion with Knee Extended 0 Ankle and Foot ROM Limitations ROM Limitations Soft Tissue Tightness PT-OP-M Strength Start: 06/08/22 12:11 Freq: Status: Active Protocol: Document 06/09/22 09:49 [facility] (Rec: 06/14/22 17:24 [facility] [id number]) Cervical Spine Strength Cervical Spine Manual Muscle Testing Testing Position Sitting Flexion (C1-2) 4+ Good+ Extension 4+ Good+ Rotation Left 4+ Good+ Rotation Right 4+ Good+ Lateral Flexion Left (C3) 4+ Good+ Lateral Flexion Right (C3) 4+ Good+ Trunk Strength Trunk Manual Muscle Testing Flexion 3+ Fair+ Extension 3+ Fair+ Shoulder Strength Shoulder Manual Muscle Testing john Flexion 4 Good Extension 4 Good Abduction (C5) 4 Good External Rotation 4 Good Internal Rotation 4 Good Elbow/Forearm Strength Elbow and Forearm Manual Muscle Testing john Flexion (C6) 4+ Good+ Extension (C7) 4+ Good+ Hip Strength Hip Manual Muscle Testing john Flexion (L2) 4 Good Extension (S1) 3+ Fair+ Adduction 4 Good External Rotation 3+ Fair+ Internal Rotation 4 Good Knee Strength Knee Manual Muscle Testing john Flexion (S2) 4- Good- Extension (L3) 4- Good- Ankle/Foot Strength Ankle and Foot Manual Muscle Testing john Dorsiflexion (L4) 4 Good Plantarflexion (S1) 4 Good PT-OP-Q Treatments Start: 06/08/22 12:11 Freq: Status: Active Protocol: Document 06/25/22 09:50 SP (Rec: 06/25/22 10:32 SP [id number]) Therapeutic Exercises Sitting Exercises ankle DF, EV Sitting Exercise Name HEP reviewed: R>L Side bilateral Resistance TB #2>#3 Reps/Minutes 2x10 each Comments cued slow con/eccentric control assist DF ft clearance STS Sitting Exercise Name baseline assessment 06/22- added to HEP 10 reps 3x/day Equipment Used mesh chair, BUE support ascend, no UE support desc but flops last 3 Reps/Minutes 5x STS 25 sec- decrease use chair behind B calves at times Comments cued slow eccentric control post testing and use UEs for safety needed. Standing Exercises mini squat Standing Exercise Name reviewed HEP Equipment Used rail, chair behind target Reps/Minutes x10 Comments cued hip hinge buttocks back- hover Gait Training Gait Activity stairs Description asc/descend Level of Assistance CG/ SBA Distance/Duration 2 sets each fwd, Katie stepping Treatment Focus receiprocal stepping, foot clearance, posturing Comments Typically does at home to get to bathroom-side stepping L HR . asc/desc BHR SBA, 2 SPC Description gait training with SPC Device Used SPC x 2, SPC x 1 Level of Assistance CGA, Surface tile, carpet Distance/Duration 170 ft, Treatment Focus gait sequencing, safety, posturing, foot clearance Comments cued increase posturing to allow SPC and R>L foot clearance Neuro Re-Education Treatment Balance Activities parker stepping Details stride, step length, posture Surface carpet Equipment 1 HR, SPC> 2 SCP, 6 hurdles Reps/Duration 10 ft x3 laps Comments CGA for safety-receiprocal stepping- improve posture, foot clearance with cues tall posture, increase hip/knee flexion, soft eccentric heel strike PT-OP-T Assessment and Plan Start: 06/08/22 12:11 Freq: Status: Active Protocol: Document 06/25/22 09:50 SP (Rec: 06/25/22 10:32 SP [id number]) Physical Therapy Assessment Goals Four Impairment patient unable to golf due to weakness, gait and balance dysfunction Short Term Goal (STG) Patient to improve functional strength, gait, and balance sufficient to be able to put golf ball on tonja with CGA and hit ball with min assist for balance STG Duration 07/24/22 Alf Goal (LTG) Patient will improve his functional strength, gait, and balance to be able to play golf with supervision only LTG Duration 09/11/22 Three Impairment trunk and LE weakness Impairment requires use of UE's for all transfers Short Term Goal (STG) Patient to be instructed in HEP to support therapy activities in the clinic and demonstrate compliance STG Duration 07/07/22 Nurse Quality Goal (LTG) Improve patient's functional strength as evidenced by ability to transfer sit to stand from standard height chair without use of UE's x 10 LTG Duration 09/06/22 Two Impairment gait dysfunction Impairment uses 4WW, 3WW primarily, has to go up and down stairs sideways 6 min walk test with 3WW 681 ft Short Term Goal (STG) Patient will be able to safely ascend and descend stairs with alternating pattern and begin gait training with 2 canes on level surfaces 06/25/22: receiprical stepping BHR SBA x8 stairs, side stepping BUE on L HR (home patterning), 170 ft B canes SBA. STG Duration 07/24/22 progressing 06/25/22 Alf Goal (LTG) Patient will be able to ambulate on all usual surfaces safely with 1-2 canes and improve 6 min walk test to at least 1000 ft to improve ability to ambulate successfully in the community. LTG Duration 09/06/22 One Impairment balance dysfunction Impairment Lester Balance score 27/56 indicating high fall risk Short Term Goal (STG) Improve Lester balance score to at least 37/56 to decrease risk of falls STG Duration 07/24/22 Alf Goal (LTG) Improve Lester Balance score to at least 45/56 to decrease risk of falls, allow for safe mobility in the home and community LTG Duration 09/06/22 Assessment Summary Assessment Pt improved STS by 2 sec this tx. Improved heel toe soft stepping R>L post hurdles and ability to perform with 2 SPC vs rail support , posturing during parker stepping- foot caught hurdles x3 but self recovery . Gait less effort and more stable 170 ft today. Physical Therapy Plan Frequency and Duration Frequency of Treatment 2x/Week Duration of treatment (weeks) 12 Plan of Care Start Date 06/09/22 Plan of Care End Date 09/06/22 Therapeutic Interventions Therapeutic Interventions Balance Training,Gait Training ,Home Exercise Program,Manual Therapy,Neuromuscular Re- education,Patient/Caregiver Education,Self-Care/Home Management,Soft Tissue Mobilization,Therapeutic Activities,Therapeutic Exercises Next Visit Focus/Plan Next Note Type Treatment Note Next Visit Plan Review HEP: added mini squat, STS and resisted ankle DF/ EV. POC: Continue progression of gait training, balance training, strengthening.
--- NOTE | 2022-06-29 11:00 | PT.OTN ---
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) Physical Therapy Treatment Note PT-OP-A Visit Information Start: 06/08/22 12:11 Freq: Status: Active Protocol: Document 06/29/22 09:20 NBM (Rec: 06/29/22 09:52 NBM [id number]) Out-Patient Physical Therapy Visit Information Visit Information Visit Type Treatment Note Visit Start Time 09:05 Visit Stop Time 09:50 Total Visit Minutes 45 Visit Number 5 Number of CHIEF STRATEGY OFFICER Visits 3 Evaluation Information Evaluation Date 06/09/22 Precautions Precautions high fall risk PT-OP-B Current Condition Start: 06/08/22 12:11 Freq: Status: Active Protocol: Document 06/16/22 10:30 SAK (Rec: 06/16/22 11:18 SAK [id number]) Current Condition History of Current Condition Onset Date 04/12/21 Current Complaints weakness, balance and gait difficulty History of Current Condition Fell while walking, fractured T34. Had fusion, 5 wks [facility], then at at [place] until July 23 2021. Was at [facility] until the end of January. Now at home on [facility] [place], [address] [place] [id number]. Bedroom and bathroom on main floor. Uses 3WW, 4WW, has canes. Wants to wean off walker. Balance and fear of falling limit his mobility, has had a couple near falls since going home. Also has some nerve pain left ant and post chest. Was instructed in HEP, not doing theraband exercises. Is working on standing balance. Very little feeling in thighs, has some in lower legs and feet, the most feeling is in bottom of feet. On and off bowel and bladder issues. Prior Treatments and Tests 05/21/22: check-up at [place], all medical issues st able Treatment Goals Patient/Caregiver Goals play golf again, drive, walk without walker, in and out of car independent PT-OP-C Subjective Start: 06/08/22 12:11 Freq: Status: Active Protocol: Document 06/29/22 09:20 NBM (Rec: 06/29/22 09:52 NBM [id number]) OP-PT Subjective Patient Comments Patient Comments Pt felt well after last treatment, but treatments go too fast. He wants to be able to walk again. PT-OP-D Balance Start: 06/08/22 12:11 Freq: Status: Active Protocol: Document 06/09/22 09:[address] [facility] (Rec: 06/14/22 17:[address] [facility] [id number]) OP-PT Balance Assessment Sitting Balance Static Sitting Balance Ability Normal Dynamic Sitting Balance Ability Normal Standing Balance Static Standing Balance Ability Fair Dynamic Standing Balance Ability Poor Lester Balance Assessment Evaluation Sitting to Standing Ability Independent w/Hands Unsupported Stance Supervision- 2 minutes Sitting Unsupported, Feet on Floor Safely- 2 minutes Standing to Sitting Ability Assist, Use Legs on Chair Transfer Ability Safely, Hand Use Unsupported Stance- Eyes Closed Supervision, 10 seconds Unsupported Stance- Eyes Open Supervision to maintain Reaching Forward Standing Safely, 5 inches Pick- Up Object From Floor Requires Supervision Look Behind Shoulder - Standing Turns Sideways Only Turning 360 Degrees Requires Assistance Unsupported Stance, Alternating Feet on Assist to Prevent Fall Stair Unsupported Tandem Stance Balance Lost- Step/Stand Unilateral Leg Stance Unable,assist to not fall Total Score Lester Total Score (out of 56 points) 27 Cadet Fall Scale Copyright Permission PT-OP-E Functional Tests Start: 06/08/22 12:11 Freq: Status: Active Protocol: Document 06/09/22 09:[address] [facility] (Rec: 06/14/22 17:[address] [facility] [id number]) Functional Tests Timed Up and Go (TUG) Score 22 sec Comments 4WW PT-OP-G Mobility & Gait Start: 06/08/22 12:11 Freq: Status: Active Protocol: Document 06/09/22 09:[address] [facility] (Rec: 06/14/22 17:[address] [facility] [id number]) OP Mobility Evaluation Bed Mobility Rolling indep Supine to and from Sit indep OP Gait Assessment Gait Gait Assistance Required: Independent Assistive Devices Assistive Device 4 Wheeled Walker Orthotic/Prosthetic Devices or Brace: No Gait Deviations General Gait Pattern Ataxic,Decreased Stride Length ,Decreased Feet Clearance, Flexed Trunk,Wide Based Gait Factors Limiting Gait Function Factors Limiting Gait Function Abnormal Tonal Influences, Decreased Sensation,Decreased Strength,Poor Balance Stair Climbing Evaluation Technique/Endurance Stair Climbing Direction Ascend and Descend Comments Stair Climbing Comments sideways holding railing PT-OP-H Neuro Start: 06/08/22 12:11 Freq: Status: Active Protocol: Document 06/09/22 09:[address] [facility] (Rec: 06/14/22 17:[address] [facility] [id number]) Sensation Evaluation Gross Sensation Gross Sensation Left LE Impaired,Right LE Impaired Sensation Description Numbness PT-OP-J Posture/Palpation/Skin Start: 06/08/22 12:11 Freq: Status: Active Protocol: Document 06/09/22 09:[address] [facility] (Rec: 06/14/22 17:[address] [facility] [id number]) Posture Evaluation Position Standing Head/C-Spine Posture Forward Head T-Spine Posture Increased Kyphosis L-Spine Posture Flattened Skin Assessment Incisional Assessment Incision Appearance/Comments well-healed, decreased scar mobility PT-OP-K Range of Motion Start: 06/08/22 12:11 Freq: Status: Active Protocol: Document 06/09/22 09:[address] [facility] (Rec: 06/14/22 17:[address] [facility] [id number]) Cervical Spine Range of Motion Cervical Spine Active Testing Position Sitting ROM Limitations Soft Tissue Tightness Comments approx 75% Shoulder Goniometric Range of Motion Shoulder john Shoulder ROM WFL No Comments mild dec all motions Shoulder ROM Limitations Shoulder ROM Limitations Muscle Weakness Elbow/Forearm Range of Motion Elbow/Forearm john Elbow/Forearm ROM WFL Yes Wrist Goniometric Range of Motion Wrist john Wrist ROM WFL Yes Hip Goniometric Range of Motion Hip john Hip ROM WFL No Flexion w/Knee Flexed 90 Straight Leg Raise 65 Extension 0 Abduction 2 Internal Rotation 15 External Rotation 45 Hip ROM Limitations Hip ROM Limitations Soft Tissue Tightness,Muscle Weakness Knee Goniometric Range of Motion Knee john Knee ROM WFL Yes Ankle and Foot Goniometric Range of Motion Ankle and Foot john Dorsiflexion with Knee Flexed 5 Dorsiflexion with Knee Extended 0 Ankle and Foot ROM Limitations ROM Limitations Soft Tissue Tightness PT-OP-M Strength Start: 06/08/22 12:11 Freq: Status: Active Protocol: Document 06/09/22 09:[address] [facility] (Rec: 06/14/22 17:[address] [facility] [id number]) Cervical Spine Strength Cervical Spine Manual Muscle Testing Testing Position Sitting Flexion (C1-2) 4+ Good+ Extension 4+ Good+ Rotation Left 4+ Good+ Rotation Right 4+ Good+ Lateral Flexion Left (C3) 4+ Good+ Lateral Flexion Right (C3) 4+ Good+ Trunk Strength Trunk Manual Muscle Testing Flexion 3+ Fair+ Extension 3+ Fair+ Shoulder Strength Shoulder Manual Muscle Testing john Flexion 4 Good Extension 4 Good Abduction (C5) 4 Good External Rotation 4 Good Internal Rotation 4 Good Elbow/Forearm Strength Elbow and Forearm Manual Muscle Testing john Flexion (C6) 4+ Good+ Extension (C7) 4+ Good+ Hip Strength Hip Manual Muscle Testing john Flexion (L2) 4 Good Extension (S1) 3+ Fair+ Adduction 4 Good External Rotation 3+ Fair+ Internal Rotation 4 Good Knee Strength Knee Manual Muscle Testing john Flexion (S2) 4- Good- Extension (L3) 4- Good- Ankle/Foot Strength Ankle and Foot Manual Muscle Testing john Dorsiflexion (L4) 4 Good Plantarflexion (S1) 4 Good PT-OP-Q Treatments Start: 06/08/22 12:11 Freq: Status: Active Protocol: Document 06/29/22 09:20 NBM (Rec: 06/29/22 09:52 [facility] [id number]) Therapeutic Exercises Sitting Exercises hip adduction Sitting Exercise Name ball squeeze Side bilateral Equipment Used ball Reps/Minutes 5 x 5SH Comments challenging ankle DF, EV Sitting Exercise Name HEP reviewed: R>L Side bilateral Resistance TB #2>#3 Reps/Minutes 2x10 each Comments cued slow con/eccentric control assist DF ft clearance STS Sitting Exercise Name baseline assessment 06/22- added to HEP 10 reps 3x/day Equipment Used mesh chair, BUE support ascend, no UE support desc but flops last 3 Reps/Minutes 5x STS 25 sec- decrease use chair behind B calves at times Comments cued slow eccentric control post testing and use UEs for safety needed. Standing Exercises mini squat Standing Exercise Name reviewed HEP Equipment Used rail, chair behind target Reps/Minutes x10 Comments cued hip hinge buttocks back- hover HC stretch Equipment Used LIA Reps/Minutes 2x10 heel/toe raise Standing Exercise Name HEP reviewed Equipment Used rail Reps/Minutes 10x 2 Comments cued posture, scapular setting , glute squeeze, neutral foot hamstring curl Reps/Minutes 10x hip ext Standing Exercise Name HEP reviewed Equipment Used rail Reps/Minutes 10x 2 Comments cued posture, DF hip ab Standing Exercise Name HEP reviewed Equipment Used rail Reps/Minutes 10 x2 Comments cued posture, DF march Reps/Minutes 10x Gait Training Gait Activity 2 SPC Description gait training with SPC Device Used SPC x 2, SPC x 1 Level of Assistance CGA, Surface tile, carpet Distance/Duration 150 ft, Treatment Focus gait sequencing, safety, posturing, foot clearance Comments cues for distant focal point, upright posture, increase hip flexion/high knee to increase foot clearance R>L Self-Care/Home Management Treatment Education Patient Education Home Exercise Program Other Education Added to HEP:Mini squat, STS and resisted ankle DF/ EV - HO given. PT-OP-T Assessment and Plan Start: 06/08/22 12:11 Freq: Status: Active Protocol: Document 06/29/22 09:20 [facility] (Rec: 06/29/22 09:52 [facility] [id number]) Physical Therapy Assessment Impairments Impairments Balance,Coordination, Functional Mobility,Gait, Strength,Transfers Goals Four Impairment patient unable to golf due to weakness, gait and balance dysfunction Short Term Goal (STG) Patient to improve functional strength, gait, and balance sufficient to be able to put golf ball on tonja with CGA and hit ball with min assist for balance STG Duration 07/24/22 Usp Goal (LTG) Patient will improve his functional strength, gait, and balance to be able to play golf with supervision only LTG Duration 09/11/22 Three Impairment trunk and LE weakness Impairment requires use of UE's for all transfers Short Term Goal (STG) Patient to be instructed in HEP to support therapy activities in the clinic and demonstrate compliance STG Duration 07/07/22 Usp Goal (LTG) Improve patient's functional strength as evidenced by ability to transfer sit to stand from standard height chair without use of UE's x 10 LTG Duration 09/06/22 Two Impairment gait dysfunction Impairment uses 4WW, 3WW primarily, has to go up and down stairs sideways 6 min walk test with 3WW 681 ft Short Term Goal (STG) Patient will be able to safely ascend and descend stairs with alternating pattern and begin gait training with 2 canes on level surfaces 06/25/22: receiprical stepping BHR SBA x8 stairs, side stepping BUE on L HR (home patterning), 170 ft B canes SBA. STG Duration 07/24/22 progressing 06/25/22 Usp Goal (LTG) Patient will be able to ambulate on all usual surfaces safely with 1-2 canes and improve 6 min walk test to at least 1000 ft to improve ability to ambulate successfully in the community. LTG Duration 09/06/22 One Impairment balance dysfunction Impairment Lester Balance score 27/56 indicating high fall risk Short Term Goal (STG) Improve Lester balance score to at least 37/56 to decrease risk of falls STG Duration 07/24/22 [employer] Goal (LTG) Improve Lester Balance score to at least 45/56 to decrease risk of falls, allow for safe mobility in the home and community LTG Duration 09/06/22 Assessment Summary Assessment Treatment focus today on HEP review and gait training. Chirag requires cues with gait w/ SPC for distant focal point, upright posture, increased hip flexion (high knee) to increase foot clearance R>L. He is challenged w/ hip aduction ball squeeze 5-second hold and Sit to Stand, and requires cues for slow eccentric movements throughout session. Added to HEP: Mini squat, STS and resisted ankle DF/ EV - HO given. Physical Therapy Plan Frequency and Duration Frequency of Treatment 2x/Week Duration of treatment (weeks) 12 Plan of Care Start Date 06/09/22 Plan of Care End Date 09/06/22 Therapeutic Interventions Therapeutic Interventions Balance Training,Gait Training ,Home Exercise Program,Manual Therapy,Neuromuscular Re- education,Patient/Caregiver Education,Self-Care/Home Management,Soft Tissue Mobilization,Therapeutic Activities,Therapeutic Exercises Next Visit Focus/Plan Next Note Type Treatment Note Next Visit Plan Review HEP: added mini squat, STS and resisted ankle DF/ EV. POC: Continue progression of gait training, balance training, strengthening.
--- NOTE | 2022-07-06 13:28 | PT.OTN ---
Current Diagnoses Paraplegia, unspecified (07/06/22) Paraplegia, incomplete (07/06/22) Physical Therapy Treatment Note PT-OP-A Visit Information Start: 06/08/22 12:11 Freq: Status: Active Protocol: Document 07/06/22 08:15 SAK (Rec: 07/06/22 09:03 SAK [id number]) Out-Patient Physical Therapy Visit Information Visit Information Visit Type Treatment Note Visit Note patient 7 min late Visit Start Time 08:22 Visit Stop Time 09:00 Total Visit Minutes 38 Visit Number 6 Number of PRODUCTION MAINTENANCE MECHANIC Visits 0 Evaluation Information Evaluation Date 06/09/22 Precautions Precautions high fall risk PT-OP-B Current Condition Start: 06/08/22 12:11 Freq: Status: Active Protocol: Document 06/16/22 10:30 SAK (Rec: 06/16/22 11:18 SAK [id number]) Current Condition History of Current Condition Onset Date 04/12/21 Current Complaints weakness, balance and gait difficulty History of Current Condition Fell while walking, fractured T34. Had fusion, [address] [facility], then at at [place] until July 23 2021. Was at [facility] until the end of January. Now at home on [facility], [address] [place] [address]. Bedroom and bathroom on main floor. Uses 3WW, 4WW, has canes. Wants to wean off walker. Balance and fear of falling limit his mobility, has had a couple near falls since going home. Also has some nerve pain left ant and post chest. Was instructed in HEP, not doing theraband exercises. Is working on standing balance. Very little feeling in thighs, has some in lower legs and feet, the most feeling is in bottom of feet. On and off bowel and bladder issues. Prior Treatments and Tests 05/21/22: check-up at [place], all medical issues st able Treatment Goals Patient/Caregiver Goals play golf again, drive, walk without walker, in and out of car independent PT-OP-C Subjective Start: 06/08/22 12:11 Freq: Status: Active Protocol: Document 07/06/22 08:15 SAK (Rec: 07/06/22 09:03 SAK [id number]) OP-PT Subjective Patient Comments Patient Comments Wishes he could walk more with his canes at home; doesn't feel safe without someone with him. PT-OP-D Balance Start: 06/08/22 12:11 Freq: Status: Active Protocol: Document 06/09/22 09:49 [facility] (Rec: 06/14/22 17:24 [facility] [id number]) OP-PT Balance Assessment Sitting Balance Static Sitting Balance Ability Normal Dynamic Sitting Balance Ability Normal Standing Balance Static Standing Balance Ability Fair Dynamic Standing Balance Ability Poor Lester Balance Assessment Evaluation Sitting to Standing Ability Independent w/Hands Unsupported Stance Supervision- 2 minutes Sitting Unsupported, Feet on Floor Safely- 2 minutes Standing to Sitting Ability Assist, Use Legs on Chair Transfer Ability Safely, Hand Use Unsupported Stance- Eyes Closed Supervision, 10 seconds Unsupported Stance- Eyes Open Supervision to maintain Reaching Forward Standing Safely, 5 inches Pick- Up Object From Floor Requires Supervision Look Behind Shoulder - Standing Turns Sideways Only Turning 360 Degrees Requires Assistance Unsupported Stance, Alternating Feet on Assist to Prevent Fall Stair Unsupported Tandem Stance Balance Lost- Step/Stand Unilateral Leg Stance Unable,assist to not fall Total Score Lester Total Score (out of 56 points) 27 Cadet Fall Scale Copyright Permission PT-OP-E Functional Tests Start: 06/08/22 12:11 Freq: Status: Active Protocol: Document 06/09/22 09:49 [facility] (Rec: 06/14/22 17:24 [facility] [id number]) Functional Tests Timed Up and Go (TUG) Score 22 sec Comments 4WW PT-OP-G Mobility & Gait Start: 06/08/22 12:11 Freq: Status: Active Protocol: Document 06/09/22 09:49 [facility] (Rec: 06/14/22 17:24 [facility] [id number]) OP Mobility Evaluation Bed Mobility Rolling indep Supine to and from Sit indep OP Gait Assessment Gait Gait Assistance Required: Independent Assistive Devices Assistive Device 4 Wheeled Walker Orthotic/Prosthetic Devices or Brace: No Gait Deviations General Gait Pattern Ataxic,Decreased Stride Length ,Decreased Feet Clearance, Flexed Trunk,Wide Based Gait Factors Limiting Gait Function Factors Limiting Gait Function Abnormal Tonal Influences, Decreased Sensation,Decreased Strength,Poor Balance Stair Climbing Evaluation Technique/Endurance Stair Climbing Direction Ascend and Descend Comments Stair Climbing Comments sideways holding railing PT-OP-H Neuro Start: 06/08/22 12:11 Freq: Status: Active Protocol: Document 06/09/22 09:49 [facility] (Rec: 06/14/22 17:24 [facility] [id number]) Sensation Evaluation Gross Sensation Gross Sensation Left LE Impaired,Right LE Impaired Sensation Description Numbness PT-OP-J Posture/Palpation/Skin Start: 06/08/22 12:11 Freq: Status: Active Protocol: Document 06/09/22 09:49 [facility] (Rec: 06/14/22 17:24 [facility] [id number]) Posture Evaluation Position Standing Head/C-Spine Posture Forward Head T-Spine Posture Increased Kyphosis L-Spine Posture Flattened Skin Assessment Incisional Assessment Incision Appearance/Comments well-healed, decreased scar mobility PT-OP-K Range of Motion Start: 06/08/22 12:11 Freq: Status: Active Protocol: Document 06/09/22 09:49 [facility] (Rec: 06/14/22 17:24 [facility] [id number]) Cervical Spine Range of Motion Cervical Spine Active Testing Position Sitting ROM Limitations Soft Tissue Tightness Comments approx 75% Shoulder Goniometric Range of Motion Shoulder john Shoulder ROM WFL No Comments mild dec all motions Shoulder ROM Limitations Shoulder ROM Limitations Muscle Weakness Elbow/Forearm Range of Motion Elbow/Forearm john Elbow/Forearm ROM WFL Yes Wrist Goniometric Range of Motion Wrist john Wrist ROM WFL Yes Hip Goniometric Range of Motion Hip john Hip ROM WFL No Flexion w/Knee Flexed 90 Straight Leg Raise 65 Extension 0 Abduction 2 Internal Rotation 15 External Rotation 45 Hip ROM Limitations Hip ROM Limitations Soft Tissue Tightness,Muscle Weakness Knee Goniometric Range of Motion Knee john Knee ROM WFL Yes Ankle and Foot Goniometric Range of Motion Ankle and Foot john Dorsiflexion with Knee Flexed 5 Dorsiflexion with Knee Extended 0 Ankle and Foot ROM Limitations ROM Limitations Soft Tissue Tightness PT-OP-M Strength Start: 06/08/22 12:11 Freq: Status: Active Protocol: Document 06/09/22 09:49 [facility] (Rec: 06/14/22 17:24 [facility] [id number]) Cervical Spine Strength Cervical Spine Manual Muscle Testing Testing Position Sitting Flexion (C1-2) 4+ Good+ Extension 4+ Good+ Rotation Left 4+ Good+ Rotation Right 4+ Good+ Lateral Flexion Left (C3) 4+ Good+ Lateral Flexion Right (C3) 4+ Good+ Trunk Strength Trunk Manual Muscle Testing Flexion 3+ Fair+ Extension 3+ Fair+ Shoulder Strength Shoulder Manual Muscle Testing john Flexion 4 Good Extension 4 Good Abduction (C5) 4 Good External Rotation 4 Good Internal Rotation 4 Good Elbow/Forearm Strength Elbow and Forearm Manual Muscle Testing john Flexion (C6) 4+ Good+ Extension (C7) 4+ Good+ Hip Strength Hip Manual Muscle Testing john Flexion (L2) 4 Good Extension (S1) 3+ Fair+ Adduction 4 Good External Rotation 3+ Fair+ Internal Rotation 4 Good Knee Strength Knee Manual Muscle Testing john Flexion (S2) 4- Good- Extension (L3) 4- Good- Ankle/Foot Strength Ankle and Foot Manual Muscle Testing john Dorsiflexion (L4) 4 Good Plantarflexion (S1) 4 Good PT-OP-Q Treatments Start: 06/08/22 12:11 Freq: Status: Active Protocol: Document 07/06/22 08:15 [facility] (Rec: 07/06/22 13:27 [facility] [id number]) Therapeutic Activity Therapeutic Activity putting Name golf balls on and off cones, putting ball toward cup Reps/Minutes 9 Comments in parallel bars, pt leaned bottom against bar initially then able to do without bar support but LOB fwd x 3 requ min assist to regain Gait Training Gait Activity 2 SPC Description gait training with SPC Device Used SPC x 2, SPC x 1 Level of Assistance CGA, Surface tile, carpet Distance/Duration 170 ft x 2 Treatment Focus gait sequencing, safety, posturing, foot clearance Comments cued increase posturing to allow SPC and R>L foot clearance, canes closer to body instead of as far forward fwd/bck/side Description walking Device Used parallel bars Level of Assistance CGA Treatment Focus dec support, safety, upright posture, inc foot clearance Neuro Re-Education Treatment Balance Activities parker stepping Reps/Duration 5 hurdles x 8 Comments 1 parker, mod> min UE support PT-OP-T Assessment and Plan Start: 06/08/22 12:11 Freq: Status: Active Protocol: Document 07/06/22 08:15 [facility] (Rec: 07/06/22 09:03 [facility] [id number]) Physical Therapy Assessment Impairments Impairments Balance,Coordination, Functional Mobility,Gait, Strength,Transfers Goals Four Impairment patient unable to golf due to weakness, gait and balance dysfunction Short Term Goal (STG) Patient to improve functional strength, gait, and balance sufficient to be able to put golf ball on tonja with CGA and hit ball with min assist for balance STG Duration 07/24/22 Fdc Goal (LTG) Patient will improve his functional strength, gait, and balance to be able to play golf with supervision only LTG Duration 09/11/22 Three Impairment trunk and LE weakness Impairment requires use of UE's for all transfers Short Term Goal (STG) Patient to be instructed in HEP to support therapy activities in the clinic and demonstrate compliance STG Duration 07/07/22 Photographic Equipment Technician Goal (LTG) Improve patient's functional strength as evidenced by ability to transfer sit to stand from standard height chair without use of UE's x 10 LTG Duration 09/06/22 Two Impairment gait dysfunction Impairment uses 4WW, 3WW primarily, has to go up and down stairs sideways 6 min walk test with 3WW 681 ft Short Term Goal (STG) Patient will be able to safely ascend and descend stairs with alternating pattern and begin gait training with 2 canes on level surfaces 06/25/22: receiprical stepping BHR SBA x8 stairs, side stepping BUE on L HR (home patterning), 170 ft B canes SBA. STG Duration 07/24/22 progressing 06/25/22 Fdc Goal (LTG) Patient will be able to ambulate on all usual surfaces safely with 1-2 canes and improve 6 min walk test to at least 1000 ft to improve ability to ambulate successfully in the community. LTG Duration 09/06/22 One Impairment balance dysfunction Impairment Lester Balance score 27/56 indicating high fall risk Short Term Goal (STG) Improve Lester balance score to at least 37/56 to decrease risk of falls STG Duration 07/24/22 Fdc Goal (LTG) Improve Lester Balance score to at least 45/56 to decrease risk of falls, allow for safe mobility in the home and community LTG Duration 09/06/22 Assessment Summary Assessment Emphasis on gait in parallel bars with decreasing UE support; fwd,back,side, and gait with john canes CG to min assist for balance, cues for upright posture, increased foot clearance. Stepovers on low parker (1) with inc need for UE support. Golf putting in parallel bars with CGa to min assist for bal. Physical Therapy Plan Frequency and Duration Frequency of Treatment 2x/Week Duration of treatment (weeks) 12 Plan of Care Start Date 06/09/22 Plan of Care End Date 09/06/22 Therapeutic Interventions Therapeutic Interventions Balance Training,Gait Training ,Home Exercise Program,Manual Therapy,Neuromuscular Re- education,Patient/Caregiver Education,Self-Care/Home Management,Soft Tissue Mobilization,Therapeutic Activities,Therapeutic Exercises Next Visit Focus/Plan Next Note Type Treatment Note Next Visit Plan Review mini squats and STA, resisted ankle df/ev. Cotinue progression of balance, gait, strengthening. Use golf activities for functional balance training as able.
--- NOTE | 2022-07-13 11:11 | PT.OTN ---
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) Physical Therapy Treatment Note PT-OP-A Visit Information Start: 06/08/22 12:11 Freq: Status: Active Protocol: Document 07/13/22 09:54 SAK (Rec: 07/13/22 11:11 SAK [id number]) Out-Patient Physical Therapy Visit Information Visit Information Visit Type Treatment Note Visit Start Time 10:06 Visit Stop Time 11:01 Total Visit Minutes 55 Visit Number 7 Number of TRAIN BRAKE OPERATOR Visits 0 Evaluation Information Evaluation Date 06/09/22 Precautions Precautions high fall risk PT-OP-B Current Condition Start: 06/08/22 12:11 Freq: Status: Active Protocol: Document 06/16/22 10:30 SAK (Rec: 06/16/22 11:18 SAK [id number]) Current Condition History of Current Condition Onset Date 04/12/21 Current Complaints weakness, balance and gait difficulty History of Current Condition Fell while walking, fractured T34. Had fusion, 5 wks [facility], then at at [place] until July 23 2021. Was at [facility] until the end of January. Now at home on [facility], [address] [place] [address]. Bedroom and bathroom on main floor. Uses 3WW, 4WW, has canes. Wants to wean off walker. Balance and fear of falling limit his mobility, has had a couple near falls since going home. Also has some nerve pain left ant and post chest. Was instructed in HEP, not doing theraband exercises. Is working on standing balance. Very little feeling in thighs, has some in lower legs and feet, the most feeling is in bottom of feet. On and off bowel and bladder issues. Prior Treatments and Tests 05/21/22: check-up at [place], all medical issues st able Treatment Goals Patient/Caregiver Goals play golf again, drive, walk without walker, in and out of car independent PT-OP-C Subjective Start: 06/08/22 12:11 Freq: Status: Active Protocol: Document 07/13/22 09:54 SAK (Rec: 07/13/22 11:11 SAK [id number]) OP-PT Subjective Patient Comments Patient Comments walking feels about the same PT-OP-D Balance Start: 06/08/22 12:11 Freq: Status: Active Protocol: Document 06/09/22 09:49 SAK (Rec: 06/14/22 17:24 [facility] [id number]) OP-PT Balance Assessment Sitting Balance Static Sitting Balance Ability Normal Dynamic Sitting Balance Ability Normal Standing Balance Static Standing Balance Ability Fair Dynamic Standing Balance Ability Poor Lester Balance Assessment Evaluation Sitting to Standing Ability Independent w/Hands Unsupported Stance Supervision- 2 minutes Sitting Unsupported, Feet on Floor Safely- 2 minutes Standing to Sitting Ability Assist, Use Legs on Chair Transfer Ability Safely, Hand Use Unsupported Stance- Eyes Closed Supervision, 10 seconds Unsupported Stance- Eyes Open Supervision to maintain Reaching Forward Standing Safely, 5 inches Pick- Up Object From Floor Requires Supervision Look Behind Shoulder - Standing Turns Sideways Only Turning 360 Degrees Requires Assistance Unsupported Stance, Alternating Feet on Assist to Prevent Fall Stair Unsupported Tandem Stance Balance Lost- Step/Stand Unilateral Leg Stance Unable,assist to not fall Total Score Lester Total Score (out of 56 points) 27 Cadet Fall Scale Copyright Permission PT-OP-E Functional Tests Start: 06/08/22 12:11 Freq: Status: Active Protocol: Document 06/09/22 09:49 [facility] (Rec: 06/14/22 17:24 [facility] [id number]) Functional Tests Timed Up and Go (TUG) Score 22 sec Comments 4WW PT-OP-G Mobility & Gait Start: 06/08/22 12:11 Freq: Status: Active Protocol: Document 06/09/22 09:49 [facility] (Rec: 06/14/22 17:24 [facility] [id number]) OP Mobility Evaluation Bed Mobility Rolling indep Supine to and from Sit indep OP Gait Assessment Gait Gait Assistance Required: Independent Assistive Devices Assistive Device 4 Wheeled Walker Orthotic/Prosthetic Devices or Brace: No Gait Deviations General Gait Pattern Ataxic,Decreased Stride Length ,Decreased Feet Clearance, Flexed Trunk,Wide Based Gait Factors Limiting Gait Function Factors Limiting Gait Function Abnormal Tonal Influences, Decreased Sensation,Decreased Strength,Poor Balance Stair Climbing Evaluation Technique/Endurance Stair Climbing Direction Ascend and Descend Comments Stair Climbing Comments sideways holding railing PT-OP-H Neuro Start: 06/08/22 12:11 Freq: Status: Active Protocol: Document 06/09/22 09:49 [facility] (Rec: 06/14/22 17:24 [facility] [id number]) Sensation Evaluation Gross Sensation Gross Sensation Left LE Impaired,Right LE Impaired Sensation Description Numbness PT-OP-J Posture/Palpation/Skin Start: 06/08/22 12:11 Freq: Status: Active Protocol: Document 06/09/22 09:49 [facility] (Rec: 06/14/22 17:24 [facility] [id number]) Posture Evaluation Position Standing Head/C-Spine Posture Forward Head T-Spine Posture Increased Kyphosis L-Spine Posture Flattened Skin Assessment Incisional Assessment Incision Appearance/Comments well-healed, decreased scar mobility PT-OP-K Range of Motion Start: 06/08/22 12:11 Freq: Status: Active Protocol: Document 06/09/22 09:49 [facility] (Rec: 06/14/22 17:24 [facility] [id number]) Cervical Spine Range of Motion Cervical Spine Active Testing Position Sitting ROM Limitations Soft Tissue Tightness Comments approx 75% Shoulder Goniometric Range of Motion Shoulder john Shoulder ROM WFL No Comments mild dec all motions Shoulder ROM Limitations Shoulder ROM Limitations Muscle Weakness Elbow/Forearm Range of Motion Elbow/Forearm john Elbow/Forearm ROM WFL Yes Wrist Goniometric Range of Motion Wrist john Wrist ROM WFL Yes Hip Goniometric Range of Motion Hip john Hip ROM WFL No Flexion w/Knee Flexed 90 Straight Leg Raise 65 Extension 0 Abduction 2 Internal Rotation 15 External Rotation 45 Hip ROM Limitations Hip ROM Limitations Soft Tissue Tightness,Muscle Weakness Knee Goniometric Range of Motion Knee john Knee ROM WFL Yes Ankle and Foot Goniometric Range of Motion Ankle and Foot john Dorsiflexion with Knee Flexed 5 Dorsiflexion with Knee Extended 0 Ankle and Foot ROM Limitations ROM Limitations Soft Tissue Tightness PT-OP-M Strength Start: 06/08/22 12:11 Freq: Status: Active Protocol: Document 06/09/22 09:49 [facility] (Rec: 06/14/22 17:24 [facility] [id number]) Cervical Spine Strength Cervical Spine Manual Muscle Testing Testing Position Sitting Flexion (C1-2) 4+ Good+ Extension 4+ Good+ Rotation Left 4+ Good+ Rotation Right 4+ Good+ Lateral Flexion Left (C3) 4+ Good+ Lateral Flexion Right (C3) 4+ Good+ Trunk Strength Trunk Manual Muscle Testing Flexion 3+ Fair+ Extension 3+ Fair+ Shoulder Strength Shoulder Manual Muscle Testing john Flexion 4 Good Extension 4 Good Abduction (C5) 4 Good External Rotation 4 Good Internal Rotation 4 Good Elbow/Forearm Strength Elbow and Forearm Manual Muscle Testing john Flexion (C6) 4+ Good+ Extension (C7) 4+ Good+ Hip Strength Hip Manual Muscle Testing john Flexion (L2) 4 Good Extension (S1) 3+ Fair+ Adduction 4 Good External Rotation 3+ Fair+ Internal Rotation 4 Good Knee Strength Knee Manual Muscle Testing john Flexion (S2) 4- Good- Extension (L3) 4- Good- Ankle/Foot Strength Ankle and Foot Manual Muscle Testing john Dorsiflexion (L4) 4 Good Plantarflexion (S1) 4 Good PT-OP-Q Treatments Start: 06/08/22 12:11 Freq: Status: Active Protocol: Document 07/13/22 09:54 [facility] (Rec: 07/13/22 11:11 [facility] [id number]) Gym Equipment Shuttle Recovery Unilateral Squats Resistance 25 Reps/Time 10x2 Bilateral Squats Resistance 50 Shuttle Recovery Platform Stable Reps/Time 10x2 Therapeutic Exercises Supine Exercises hip flex/ext Reps/Minutes 10x SLR Reps/Minutes 10x bridge Reps/Minutes 10x Sitting Exercises piriformis stretch Reps/Minutes 2x30 HS stretch Reps/Minutes 2x30 Standing Exercises hip flexor stretch Reps/Minutes 2x30 wall posture Reps/Minutes 1 min mini squat Standing Exercise Name reviewed HEP Equipment Used rail, chair behind target Reps/Minutes x10 Comments cued hip hinge buttocks back- hover HC stretch Equipment Used LIA Reps/Minutes 2x10 june Reps/Minutes 10x Therapeutic Activity Therapeutic Activity putting Comments do again next session Gait Training Gait Activity 2 SPC Description gait training with SPC Device Used SPC x 2, SPC x 1 Level of Assistance CGA, Surface tile, carpet Distance/Duration 170 ft x 2 Treatment Focus gait sequencing, safety, posturing, foot clearance Comments cued upright posture, gluteal activation fwd/bck/side Description walking Device Used parallel bars Level of Assistance CGA Treatment Focus dec support, safety, upright posture, inc foot clearance Neuro Re-Education Treatment Balance Activities obstacle course Details foam blue, green, black, 4 box Reps/Duration 6x Comments 4x with paralel bars 2x with canes step-touch Equipment 4 step Reps/Duration 10x Comments parallel bars PT-OP-T Assessment and Plan Start: 06/08/22 12:11 Freq: Status: Active Protocol: Document 07/13/22 09:54 [facility] (Rec: 07/13/22 11:11 [facility] [id number]) Physical Therapy Assessment Impairments Impairments Balance,Coordination, Functional Mobility,Gait, Strength,Transfers Goals Four Impairment patient unable to golf due to weakness, gait and balance dysfunction Short Term Goal (STG) Patient to improve functional strength, gait, and balance sufficient to be able to put golf ball on tonja with CGA and hit ball with min assist for balance STG Duration 07/24/22 Assisted Goal (LTG) Patient will improve his functional strength, gait, and balance to be able to play golf with supervision only LTG Duration 09/11/22 Three Impairment trunk and LE weakness Impairment requires use of UE's for all transfers Short Term Goal (STG) Patient to be instructed in [facility] to support therapy activities in the clinic and demonstrate compliance STG Duration 07/07/22 Assisted Goal (LTG) Improve patient's functional strength as evidenced by ability to transfer sit to stand from standard height chair without use of UE's x 10 LTG Duration 09/06/22 Two Impairment gait dysfunction Impairment uses 4WW, 3WW primarily, has to go up and down stairs sideways 6 min walk test with 3WW 681 ft Short Term Goal (STG) Patient will be able to safely ascend and descend stairs with alternating pattern and begin gait training with 2 canes on level surfaces 06/25/22: receiprical stepping BHR SBA x8 stairs, side stepping BUE on L HR (home patterning), 170 ft B canes SBA. STG Duration 07/24/22 progressing 06/25/22 Assisted Goal (LTG) Patient will be able to ambulate on all usual surfaces safely with 1-2 canes and improve 6 min walk test to at least 1000 ft to improve ability to ambulate successfully in the community. LTG Duration 09/06/22 One Impairment balance dysfunction Impairment Lester Balance score 27/56 indicating high fall risk Short Term Goal (STG) Improve Lester balance score to at least 37/56 to decrease risk of falls STG Duration 07/24/22 Vp Director Of Finance Goal (LTG) Improve Lester Balance score to at least 45/56 to decrease risk of falls, allow for safe mobility in the home and community LTG Duration 09/06/22 Assessment Summary Assessment Added supine bridge, hip knee flex/ext, and SLR, standing wall posture and hip flexor stretcht to HEP Physical Therapy Plan Frequency and Duration Frequency of Treatment 2x/Week Duration of treatment (weeks) 12 Plan of Care Start Date 06/09/22 Plan of Care End Date 09/06/22 Therapeutic Interventions Therapeutic Interventions Balance Training,Gait Training ,Home Exercise Program,Manual Therapy,Neuromuscular Re- education,Patient/Caregiver Education,Self-Care/Home Management,Soft Tissue Mobilization,Therapeutic Activities,Therapeutic Exercises Next Visit Focus/Plan Next Note Type Treatment Note Next Visit Plan Continue progression of ther ex as tolerated for strengthening, flexibility, neuro re-ed, gait training. Golf activities for functional balance training.
--- NOTE | 2022-07-19 16:20 | PT.OTN ---
Current Diagnoses Paraplegia, unspecified (07/19/22) Paraplegia, incomplete (07/19/22) Physical Therapy Treatment Note PT-OP-A Visit Information Start: 06/08/22 12:11 Freq: Status: Active Protocol: Document 07/19/22 09:07 SAK (Rec: 07/19/22 09:49 SAK [id number]) Out-Patient Physical Therapy Visit Information Visit Information Visit Type Treatment Note Visit Start Time 09:05 Visit Stop Time 09:50 Total Visit Minutes 55 Visit Number 8 Number of DIE ENGRAVER Visits 0 Evaluation Information Evaluation Date 06/09/22 Precautions Precautions high fall risk PT-OP-B Current Condition Start: 06/08/22 12:11 Freq: Status: Active Protocol: Document 06/16/22 10:30 SAK (Rec: 06/16/22 11:18 SAK [id number]) Current Condition History of Current Condition Onset Date 04/12/21 Current Complaints weakness, balance and gait difficulty History of Current Condition Fell while walking, fractured T34. Had fusion, 5 wks [facility], then at at [place] until July 23 2021. Was at [facility] until the end of January. Now at home on [facility], [address] [place] [address]. Bedroom and bathroom on main floor. Uses 3WW, 4WW, has canes. Wants to wean off walker. Balance and fear of falling limit his mobility, has had a couple near falls since going home. Also has some nerve pain left ant and post chest. Was instructed in HEP, not doing theraband exercises. Is working on standing balance. Very little feeling in thighs, has some in lower legs and feet, the most feeling is in bottom of feet. On and off bowel and bladder issues. Prior Treatments and Tests 05/21/22: check-up at [place], all medical issues st able Treatment Goals Patient/Caregiver Goals play golf again, drive, walk without walker, in and out of car independent PT-OP-C Subjective Start: 06/08/22 12:11 Freq: Status: Active Protocol: Document 07/19/22 09:07 SAK (Rec: 07/19/22 09:49 SAK [id number]) OP-PT Subjective Patient Comments Patient Comments No new c/o, brought 4WW PT-OP-D Balance Start: 06/08/22 12:11 Freq: Status: Active Protocol: Document 06/09/22 09:49 [facility] (Rec: 06/14/22 17:24 [facility] [id number]) OP-PT Balance Assessment Sitting Balance Static Sitting Balance Ability Normal Dynamic Sitting Balance Ability Normal Standing Balance Static Standing Balance Ability Fair Dynamic Standing Balance Ability Poor Lester Balance Assessment Evaluation Sitting to Standing Ability Independent w/Hands Unsupported Stance Supervision- 2 minutes Sitting Unsupported, Feet on Floor Safely- 2 minutes Standing to Sitting Ability Assist, Use Legs on Chair Transfer Ability Safely, Hand Use Unsupported Stance- Eyes Closed Supervision, 10 seconds Unsupported Stance- Eyes Open Supervision to maintain Reaching Forward Standing Safely, 5 inches Pick- Up Object From Floor Requires Supervision Look Behind Shoulder - Standing Turns Sideways Only Turning 360 Degrees Requires Assistance Unsupported Stance, Alternating Feet on Assist to Prevent Fall Stair Unsupported Tandem Stance Balance Lost- Step/Stand Unilateral Leg Stance Unable,assist to not fall Total Score Lester Total Score (out of 56 points) 27 Cadet Fall Scale Copyright Permission PT-OP-E Functional Tests Start: 06/08/22 12:11 Freq: Status: Active Protocol: Document 06/09/22 09:49 [facility] (Rec: 06/14/22 17:24 [facility] [id number]) Functional Tests Timed Up and Go (TUG) Score 22 sec Comments 4WW PT-OP-G Mobility & Gait Start: 06/08/22 12:11 Freq: Status: Active Protocol: Document 06/09/22 09:49 [facility] (Rec: 06/14/22 17:24 [facility] [id number]) OP Mobility Evaluation Bed Mobility Rolling indep Supine to and from Sit indep OP Gait Assessment Gait Gait Assistance Required: Independent Assistive Devices Assistive Device 4 Wheeled Walker Orthotic/Prosthetic Devices or Brace: No Gait Deviations General Gait Pattern Ataxic,Decreased Stride Length ,Decreased Feet Clearance, Flexed Trunk,Wide Based Gait Factors Limiting Gait Function Factors Limiting Gait Function Abnormal Tonal Influences, Decreased Sensation,Decreased Strength,Poor Balance Stair Climbing Evaluation Technique/Endurance Stair Climbing Direction Ascend and Descend Comments Stair Climbing Comments sideways holding railing PT-OP-H Neuro Start: 06/08/22 12:11 Freq: Status: Active Protocol: Document 06/09/22 09:49 [facility] (Rec: 06/14/22 17:24 [facility] [id number]) Sensation Evaluation Gross Sensation Gross Sensation Left LE Impaired,Right LE Impaired Sensation Description Numbness PT-OP-J Posture/Palpation/Skin Start: 06/08/22 12:11 Freq: Status: Active Protocol: Document 06/09/22 09:49 [facility] (Rec: 06/14/22 17:24 [facility] [id number]) Posture Evaluation Position Standing Head/C-Spine Posture Forward Head T-Spine Posture Increased Kyphosis L-Spine Posture Flattened Skin Assessment Incisional Assessment Incision Appearance/Comments well-healed, decreased scar mobility PT-OP-K Range of Motion Start: 06/08/22 12:11 Freq: Status: Active Protocol: Document 06/09/22 09:49 [facility] (Rec: 06/14/22 17:24 [facility] [id number]) Cervical Spine Range of Motion Cervical Spine Active Testing Position Sitting ROM Limitations Soft Tissue Tightness Comments approx 75% Shoulder Goniometric Range of Motion Shoulder john Shoulder ROM WFL No Comments mild dec all motions Shoulder ROM Limitations Shoulder ROM Limitations Muscle Weakness Elbow/Forearm Range of Motion Elbow/Forearm john Elbow/Forearm ROM WFL Yes Wrist Goniometric Range of Motion Wrist john Wrist ROM WFL Yes Hip Goniometric Range of Motion Hip john Hip ROM WFL No Flexion w/Knee Flexed 90 Straight Leg Raise 65 Extension 0 Abduction 2 Internal Rotation 15 External Rotation 45 Hip ROM Limitations Hip ROM Limitations Soft Tissue Tightness,Muscle Weakness Knee Goniometric Range of Motion Knee john Knee ROM WFL Yes Ankle and Foot Goniometric Range of Motion Ankle and Foot john Dorsiflexion with Knee Flexed 5 Dorsiflexion with Knee Extended 0 Ankle and Foot ROM Limitations ROM Limitations Soft Tissue Tightness PT-OP-M Strength Start: 06/08/22 12:11 Freq: Status: Active Protocol: Document 06/09/22 09:49 [facility] (Rec: 06/14/22 17:24 [facility] [id number]) Cervical Spine Strength Cervical Spine Manual Muscle Testing Testing Position Sitting Flexion (C1-2) 4+ Good+ Extension 4+ Good+ Rotation Left 4+ Good+ Rotation Right 4+ Good+ Lateral Flexion Left (C3) 4+ Good+ Lateral Flexion Right (C3) 4+ Good+ Trunk Strength Trunk Manual Muscle Testing Flexion 3+ Fair+ Extension 3+ Fair+ Shoulder Strength Shoulder Manual Muscle Testing john Flexion 4 Good Extension 4 Good Abduction (C5) 4 Good External Rotation 4 Good Internal Rotation 4 Good Elbow/Forearm Strength Elbow and Forearm Manual Muscle Testing john Flexion (C6) 4+ Good+ Extension (C7) 4+ Good+ Hip Strength Hip Manual Muscle Testing john Flexion (L2) 4 Good Extension (S1) 3+ Fair+ Adduction 4 Good External Rotation 3+ Fair+ Internal Rotation 4 Good Knee Strength Knee Manual Muscle Testing john Flexion (S2) 4- Good- Extension (L3) 4- Good- Ankle/Foot Strength Ankle and Foot Manual Muscle Testing john Dorsiflexion (L4) 4 Good Plantarflexion (S1) 4 Good PT-OP-Q Treatments Start: 06/08/22 12:11 Freq: Status: Active Protocol: Document 07/19/22 09:07 [facility] (Rec: 07/19/22 09:49 [facility] [id number]) Gym Equipment Shuttle Recovery Unilateral Squats Resistance 25 Reps/Time 10x2 Bilateral Squats Resistance 50 Shuttle Recovery Platform Stable Reps/Time 10x2 Therapeutic Exercises Standing Exercises hip flexor stretch Reps/Minutes 2x30 wall posture Reps/Minutes 1 min mini squat Standing Exercise Name reviewed HEP Equipment Used rail, chair behind target Reps/Minutes x10 Comments cued hip hinge buttocks back- hover HC stretch Equipment Used LIA Reps/Minutes 2x10 june Reps/Minutes 10x Therapeutic Activity Therapeutic Activity putting Comments 3 balls x 2, parallel bars, CG to min assist Gait Training Gait Activity stairs Description asc/descend Device Used 1 rail, 1 cane Level of Assistance CG Surface 4 stairs 12 x 3 Treatment Focus receiprocal stepping, foot clearance, posturing 2 SPC Description gait training with SPC Device Used SPC x 2, SPC x 1 Level of Assistance CGA, Surface tile, carpet Distance/Duration 100 ft x 2, 75 ft x 1 Treatment Focus gait sequencing, safety, posturing, foot clearance Comments cued upright posture, gluteal activation fwd/bck/side Description walking Device Used parallel bars Level of Assistance CGA Treatment Focus dec support, safety, upright posture, inc foot clearance Neuro Re-Education Treatment Balance Activities step outs Details fwd/side/ bck Reps/Duration 10 x ea obstacle course Details foam blue, hurdles, 4 box Reps/Duration 6x Comments 4x with paralel bars 2x with canes PT-OP-T Assessment and Plan Start: 06/08/22 12:11 Freq: Status: Active Protocol: Document 07/19/22 09:07 DIPTI (Rec: 07/19/22 09:49 SAK [id number]) Physical Therapy Assessment Impairments Impairments Balance,Coordination, Functional Mobility,Gait, Strength,Transfers Goals Four Impairment patient unable to golf due to weakness, gait and balance dysfunction Short Term Goal (STG) Patient to improve functional strength, gait, and balance sufficient to be able to put golf ball on tonja with CGA and hit ball with min assist for balance STG Duration 07/24/22 Prison Goal (LTG) Patient will improve his functional strength, gait, and balance to be able to play golf with supervision only LTG Duration 09/11/22 Three Impairment trunk and LE weakness Impairment requires use of UE's for all transfers Short Term Goal (STG) Patient to be instructed in HEP to support therapy activities in the clinic and demonstrate compliance STG Duration 07/07/22 Prison Goal (LTG) Improve patient's functional strength as evidenced by ability to transfer sit to stand from standard height chair without use of UE's x 10 LTG Duration 09/06/22 Two Impairment gait dysfunction Impairment uses 4WW, 3WW primarily, has to go up and down stairs sideways 6 min walk test with 3WW 681 ft Short Term Goal (STG) Patient will be able to safely ascend and descend stairs with alternating pattern and begin gait training with 2 canes on level surfaces 06/25/22: receiprical stepping BHR SBA x8 stairs, side stepping BUE on L HR (home patterning), 170 ft B canes SBA. STG Duration 07/24/22 progressing 06/25/22 [place] Goal (LTG) Patient will be able to ambulate on all usual surfaces safely with 1-2 canes and improve 6 min walk test to at least 1000 ft to improve ability to ambulate successfully in the community. LTG Duration 09/06/22 One Impairment balance dysfunction Impairment Lester Balance score 27/56 indicating high fall risk Short Term Goal (STG) Improve Lester balance score to at least 37/56 to decrease risk of falls STG Duration 07/24/22 Prison Goal (LTG) Improve Lester Balance score to at least 45/56 to decrease risk of falls, allow for safe mobility in the home and community LTG Duration 09/06/22 Assessment Summary Assessment Improved foot clearance with gait after work on obstacle course in parallel bars. Less LOB with putting. Physical Therapy Plan Frequency and Duration Frequency of Treatment 2x/Week Duration of treatment (weeks) 12 Plan of Care Start Date 06/09/22 Plan of Care End Date 09/06/22 Therapeutic Interventions Therapeutic Interventions Balance Training,Gait Training ,Home Exercise Program,Manual Therapy,Neuromuscular Re- education,Patient/Caregiver Education,Self-Care/Home Management,Soft Tissue Mobilization,Therapeutic Activities,Therapeutic Exercises Next Visit Focus/Plan Next Note Type Treatment Note Next Visit Plan Continue progression of ther ex as tolerated for strengthening, flexibility, neuro re-ed, gait training. Golf activities for functional balance training.
--- NOTE | 2022-07-21 16:22 | PT.OTN ---
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) Physical Therapy Treatment Note PT-OP-A Visit Information Start: 06/08/22 12:11 Freq: Status: Active Protocol: Document 07/21/22 09:07 SAK (Rec: 07/21/22 09:48 SAK [id number]) Out-Patient Physical Therapy Visit Information Visit Information Visit Type Treatment Note Visit Start Time 09:05 Visit Stop Time 09:50 Total Visit Minutes 45 Visit Number 9 Number of MMI TEACHER Visits 0 Evaluation Information Evaluation Date 06/09/22 Precautions Precautions high fall risk PT-OP-B Current Condition Start: 06/08/22 12:11 Freq: Status: Active Protocol: Document 06/16/22 10:30 SAK (Rec: 06/16/22 11:18 SAK [id number]) Current Condition History of Current Condition Onset Date 04/12/21 Current Complaints weakness, balance and gait difficulty History of Current Condition Fell while walking, fractured T34. Had fusion, 5 wks [facility], then at [place] until July 23 2021. Was at [facility] until the end of January. Now at home on [facility], [address] [place] [address]. Bedroom and bathroom on main floor. Uses 3WW, 4WW, has canes. Wants to wean off walker. Balance and fear of falling limit his mobility, has had a couple near falls since going home. Also has some nerve pain left ant and post chest. Was instructed in HEP, not doing theraband exercises. Is working on standing balance. Very little feeling in thighs, has some in lower legs and feet, the most feeling is in bottom of feet. On and off bowel and bladder issues. Prior Treatments and Tests 05/21/22: check-up at [place], all medical issues st able Treatment Goals Patient/Caregiver Goals play golf again, drive, walk without walker, in and out of car independent PT-OP-C Subjective Start: 06/08/22 12:11 Freq: Status: Active Protocol: Document 07/21/22 09:07 SAK (Rec: 07/21/22 09:48 SAK [id number]) OP-PT Subjective Patient Comments Patient Comments No new c/o. Walked with canes yesterday at home. PT-OP-D Balance Start: 06/08/22 12:11 Freq: Status: Active Protocol: Document 06/09/22 09:49 [facility] (Rec: 06/14/22 17:24 [facility] [id number]) OP-PT Balance Assessment Sitting Balance Static Sitting Balance Ability Normal Dynamic Sitting Balance Ability Normal Standing Balance Static Standing Balance Ability Fair Dynamic Standing Balance Ability Poor Lester Balance Assessment Evaluation Sitting to Standing Ability Independent w/Hands Unsupported Stance Supervision- 2 minutes Sitting Unsupported, Feet on Floor Safely- 2 minutes Standing to Sitting Ability Assist, Use Legs on Chair Transfer Ability Safely, Hand Use Unsupported Stance- Eyes Closed Supervision, 10 seconds Unsupported Stance- Eyes Open Supervision to maintain Reaching Forward Standing Safely, 5 inches Pick- Up Object From Floor Requires Supervision Look Behind Shoulder - Standing Turns Sideways Only Turning 360 Degrees Requires Assistance Unsupported Stance, Alternating Feet on Assist to Prevent Fall Stair Unsupported Tandem Stance Balance Lost- Step/Stand Unilateral Leg Stance Unable,assist to not fall Total Score Lester Total Score (out of 56 points) 27 Cadet Fall Scale Copyright Permission PT-OP-E Functional Tests Start: 06/08/22 12:11 Freq: Status: Active Protocol: Document 06/09/22 09:49 [facility] (Rec: 06/14/22 17:24 [facility] [id number]) Functional Tests Timed Up and Go (TUG) Score 22 sec Comments 4WW PT-OP-G Mobility & Gait Start: 06/08/22 12:11 Freq: Status: Active Protocol: Document 06/09/22 09:49 [facility] (Rec: 06/14/22 17:24 [facility] [id number]) OP Mobility Evaluation Bed Mobility Rolling indep Supine to and from Sit indep OP Gait Assessment Gait Gait Assistance Required: Independent Assistive Devices Assistive Device 4 Wheeled Walker Orthotic/Prosthetic Devices or Brace: No Gait Deviations General Gait Pattern Ataxic,Decreased Stride Length ,Decreased Feet Clearance, Flexed Trunk,Wide Based Gait Factors Limiting Gait Function Factors Limiting Gait Function Abnormal Tonal Influences, Decreased Sensation,Decreased Strength,Poor Balance Stair Climbing Evaluation Technique/Endurance Stair Climbing Direction Ascend and Descend Comments Stair Climbing Comments sideways holding railing PT-OP-H Neuro Start: 06/08/22 12:11 Freq: Status: Active Protocol: Document 06/09/22 09:49 [facility] (Rec: 06/14/22 17:24 [facility] [id number]) Sensation Evaluation Gross Sensation Gross Sensation Left LE Impaired,Right LE Impaired Sensation Description Numbness PT-OP-J Posture/Palpation/Skin Start: 06/08/22 12:11 Freq: Status: Active Protocol: Document 06/09/22 09:49 [facility] (Rec: 06/14/22 17:24 [facility] [id number]) Posture Evaluation Position Standing Head/C-Spine Posture Forward Head T-Spine Posture Increased Kyphosis L-Spine Posture Flattened Skin Assessment Incisional Assessment Incision Appearance/Comments well-healed, decreased scar mobility PT-OP-K Range of Motion Start: 06/08/22 12:11 Freq: Status: Active Protocol: Document 06/09/22 09:49 [facility] (Rec: 06/14/22 17:24 [facility] [id number]) Cervical Spine Range of Motion Cervical Spine Active Testing Position Sitting ROM Limitations Soft Tissue Tightness Comments approx 75% Shoulder Goniometric Range of Motion Shoulder john Shoulder ROM WFL No Comments mild dec all motions Shoulder ROM Limitations Shoulder ROM Limitations Muscle Weakness Elbow/Forearm Range of Motion Elbow/Forearm john Elbow/Forearm ROM WFL Yes Wrist Goniometric Range of Motion Wrist john Wrist ROM WFL Yes Hip Goniometric Range of Motion Hip john Hip ROM WFL No Flexion w/Knee Flexed 90 Straight Leg Raise 65 Extension 0 Abduction 2 Internal Rotation 15 External Rotation 45 Hip ROM Limitations Hip ROM Limitations Soft Tissue Tightness,Muscle Weakness Knee Goniometric Range of Motion Knee john Knee ROM WFL Yes Ankle and Foot Goniometric Range of Motion Ankle and Foot john Dorsiflexion with Knee Flexed 5 Dorsiflexion with Knee Extended 0 Ankle and Foot ROM Limitations ROM Limitations Soft Tissue Tightness PT-OP-M Strength Start: 06/08/22 12:11 Freq: Status: Active Protocol: Document 06/09/22 09:49 [facility] (Rec: 06/14/22 17:24 [facility] [id number]) Cervical Spine Strength Cervical Spine Manual Muscle Testing Testing Position Sitting Flexion (C1-2) 4+ Good+ Extension 4+ Good+ Rotation Left 4+ Good+ Rotation Right 4+ Good+ Lateral Flexion Left (C3) 4+ Good+ Lateral Flexion Right (C3) 4+ Good+ Trunk Strength Trunk Manual Muscle Testing Flexion 3+ Fair+ Extension 3+ Fair+ Shoulder Strength Shoulder Manual Muscle Testing john Flexion 4 Good Extension 4 Good Abduction (C5) 4 Good External Rotation 4 Good Internal Rotation 4 Good Elbow/Forearm Strength Elbow and Forearm Manual Muscle Testing john Flexion (C6) 4+ Good+ Extension (C7) 4+ Good+ Hip Strength Hip Manual Muscle Testing john Flexion (L2) 4 Good Extension (S1) 3+ Fair+ Adduction 4 Good External Rotation 3+ Fair+ Internal Rotation 4 Good Knee Strength Knee Manual Muscle Testing john Flexion (S2) 4- Good- Extension (L3) 4- Good- Ankle/Foot Strength Ankle and Foot Manual Muscle Testing john Dorsiflexion (L4) 4 Good Plantarflexion (S1) 4 Good PT-OP-Q Treatments Start: 06/08/22 12:11 Freq: Status: Active Protocol: Document 07/21/22 09:07 [facility] (Rec: 07/21/22 09:48 SAK [id number]) Cardio Equipment Recumbent Stepper (Sci-Fit) Duration (Minutes) 10 Resistance 2 Seat Position 13 Therapeutic Exercises Standing Exercises step-ups Equipment Used 6 stairs, john railing Reps/Minutes 10x2 Comments 1 set leading R LE, one set L Therapeutic Activity Therapeutic Activity putting Comments 4 balls x 3, NO parallel bars, CG to min assist for balance Gait Training Gait Activity stairs Description asc/descend Device Used 1 rail, 1 cane Level of Assistance CG Surface 6 stairs 12 x 3 Treatment Focus receiprocal stepping, foot clearance, posturing 2 SPC Description gait training with SPC Device Used SPC x 2, SPC x 1 Level of Assistance CGA, Surface tile, carpet Distance/Duration 150 ft x 2, 75 ft x 1 Treatment Focus gait sequencing, safety, posturing, foot clearance Comments cued upright posture, gluteal activation fwd/bck/side Description walking, marching Device Used parallel bars Level of Assistance CGA Treatment Focus dec support, safety, upright posture, inc foot clearance PT-OP-T Assessment and Plan Start: 06/08/22 12:11 Freq: Status: Active Protocol: Document 07/21/22 09:07 SAK (Rec: 07/21/22 09:48 [facility] [id number]) Physical Therapy Assessment Impairments Impairments Balance,Coordination, Functional Mobility,Gait, Strength,Transfers Goals Four Impairment patient unable to golf due to weakness, gait and balance dysfunction Short Term Goal (STG) Patient to improve functional strength, gait, and balance sufficient to be able to put golf ball on tonja with CGA and hit ball with min assist for balance STG Duration 07/24/22 Longterm Goal (LTG) Patient will improve his functional strength, gait, and balance to be able to play golf with supervision only LTG Duration 09/11/22 Three Impairment trunk and LE weakness Impairment requires use of UE's for all transfers Short Term Goal (STG) Patient to be instructed in HEP to support therapy activities in the clinic and demonstrate compliance STG Duration 07/07/22 Longterm Goal (LTG) Improve patient's functional strength as evidenced by ability to transfer sit to stand from standard height chair without use of UE's x 10 LTG Duration 09/06/22 Two Impairment gait dysfunction Impairment uses 4WW, 3WW primarily, has to go up and down stairs sideways 6 min walk test with 3WW 681 ft Short Term Goal (STG) Patient will be able to safely ascend and descend stairs with alternating pattern and begin gait training with 2 canes on level surfaces 06/25/22: receiprical stepping BHR SBA x8 stairs, side stepping BUE on L HR (home patterning), 170 ft B canes SBA. STG Duration 07/24/22 progressing 06/25/22 Occupational Health Professional Goal (LTG) Patient will be able to ambulate on all usual surfaces safely with 1-2 canes and improve 6 min walk test to at least 1000 ft to improve ability to ambulate successfully in the community. LTG Duration 09/06/22 One Impairment balance dysfunction Impairment Lester Balance score 27/56 indicating high fall risk Short Term Goal (STG) Improve Lester balance score to at least 37/56 to decrease risk of falls STG Duration 07/24/22 Longterm Goal (LTG) Improve Lester Balance score to at least 45/56 to decrease risk of falls, allow for safe mobility in the home and community LTG Duration 09/06/22 Progress Towards Goals Progress Towards Goals Progressing Toward Goals Assessment Summary Assessment Able to walk outside of parallel bars today without assistive device; min assist for balance using gait belt. Also able to progress to shuttle balance chains green with balloon vb with CG to min assist for balance, and CG to min assist balance with putting outside of parallel bars. Physical Therapy Plan Frequency and Duration Frequency of Treatment 2x/Week Duration of treatment (weeks) 12 Plan of Care Start Date 06/09/22 Plan of Care End Date 09/06/22 Therapeutic Interventions Therapeutic Interventions Balance Training,Gait Training ,Home Exercise Program,Manual Therapy,Neuromuscular Re- education,Patient/Caregiver Education,Self-Care/Home Management,Soft Tissue Mobilization,Therapeutic Activities,Therapeutic Exercises Next Visit Focus/Plan Next Note Type Treatment Note Next Visit Plan Gait training especially outside of parallel bars, continue balance and closed chain strengthening, emphasis on gluteal activation, unlock right knee
--- NOTE | 2022-07-27 17:06 | PT.OTN ---
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) Physical Therapy Treatment Note PT-OP-A Visit Information Start: 06/08/22 12:11 Freq: Status: Active Protocol: Document 07/27/22 09:51 SAK (Rec: 07/27/22 10:33 SAK [id number]) Out-Patient Physical Therapy Visit Information Visit Information Visit Type Treatment Note Visit Start Time 09:48 Visit Stop Time 10:31 Total Visit Minutes 43 Visit Number 10 Number of REHABILITATION COUNSELOR Visits 0 Evaluation Information Evaluation Date 06/09/22 Precautions Precautions high fall risk PT-OP-B Current Condition Start: 06/08/22 12:11 Freq: Status: Active Protocol: Document 06/16/22 10:30 SAK (Rec: 06/16/22 11:18 SAK [id number]) Current Condition History of Current Condition Onset Date 04/12/21 Current Complaints weakness, balance and gait difficulty History of Current Condition Fell while walking, fractured T34. Had fusion, 5 wks [facility], then at at [place] until July 23 2021. Was at [facility] until the end of January. Now at home on [facility], [address] [place] [address]. Bedroom and bathroom on main floor. Uses 3WW, 4WW, has canes. Wants to wean off walker. Balance and fear of falling limit his mobility, has had a couple near falls since going home. Also has some nerve pain left ant and post chest. Was instructed in HEP, not doing theraband exercises. Is working on standing balance. Very little feeling in thighs, has some in lower legs and feet, the most feeling is in bottom of feet. On and off bowel and bladder issues. Prior Treatments and Tests 05/21/22: check-up at [place], all medical issues st able Treatment Goals Patient/Caregiver Goals play golf again, drive, walk without walker, in and out of car independent PT-OP-C Subjective Start: 06/08/22 12:11 Freq: Status: Active Protocol: Document 07/27/22 09:51 SAK (Rec: 07/27/22 10:33 SAK [id number]) OP-PT Subjective Patient Comments Patient Comments Reports twisted right knee, having some pain outside of knee. 2/10 pain level. Patient reporting nerve pain R anterior chest radiating posteriorly, has tried ice, heat, and lidocaine patches. going to add diagnosis to referral. Gets worse as day progresses. PT-OP-D Balance Start: 06/08/22 12:11 Freq: Status: Active Protocol: Document 06/09/22 09:49 [facility] (Rec: 06/14/22 17:24 [facility] [id number]) OP-PT Balance Assessment Sitting Balance Static Sitting Balance Ability Normal Dynamic Sitting Balance Ability Normal Standing Balance Static Standing Balance Ability Fair Dynamic Standing Balance Ability Poor Lester Balance Assessment Evaluation Sitting to Standing Ability Independent w/Hands Unsupported Stance Supervision- 2 minutes Sitting Unsupported, Feet on Floor Safely- 2 minutes Standing to Sitting Ability Assist, Use Legs on Chair Transfer Ability Safely, Hand Use Unsupported Stance- Eyes Closed Supervision, 10 seconds Unsupported Stance- Eyes Open Supervision to maintain Reaching Forward Standing Safely, 5 inches Pick- Up Object From Floor Requires Supervision Look Behind Shoulder - Standing Turns Sideways Only Turning 360 Degrees Requires Assistance Unsupported Stance, Alternating Feet on Assist to Prevent Fall Stair Unsupported Tandem Stance Balance Lost- Step/Stand Unilateral Leg Stance Unable,assist to not fall Total Score Lester Total Score (out of 56 points) 27 Cadet Fall Scale Copyright Permission PT-OP-E Functional Tests Start: 06/08/22 12:11 Freq: Status: Active Protocol: Document 06/09/22 09:49 [facility] (Rec: 06/14/22 17:24 [facility] [id number]) Functional Tests Timed Up and Go (TUG) Score 22 sec Comments 4WW PT-OP-G Mobility & Gait Start: 06/08/22 12:11 Freq: Status: Active Protocol: Document 06/09/22 09:49 [facility] (Rec: 06/14/22 17:24 [facility] [id number]) OP Mobility Evaluation Bed Mobility Rolling indep Supine to and from Sit indep OP Gait Assessment Gait Gait Assistance Required: Independent Assistive Devices Assistive Device 4 Wheeled Walker Orthotic/Prosthetic Devices or Brace: No Gait Deviations General Gait Pattern Ataxic,Decreased Stride Length ,Decreased Feet Clearance, Flexed Trunk,Wide Based Gait Factors Limiting Gait Function Factors Limiting Gait Function Abnormal Tonal Influences, Decreased Sensation,Decreased Strength,Poor Balance Stair Climbing Evaluation Technique/Endurance Stair Climbing Direction Ascend and Descend Comments Stair Climbing Comments sideways holding railing PT-OP-H Neuro Start: 06/08/22 12:11 Freq: Status: Active Protocol: Document 06/09/22 09:49 [facility] (Rec: 06/14/22 17:24 [facility] [id number]) Sensation Evaluation Gross Sensation Gross Sensation Left LE Impaired,Right LE Impaired Sensation Description Numbness PT-OP-J Posture/Palpation/Skin Start: 06/08/22 12:11 Freq: Status: Active Protocol: Document 06/09/22 09:49 [facility] (Rec: 06/14/22 17:24 [facility] [id number]) Posture Evaluation Position Standing Head/C-Spine Posture Forward Head T-Spine Posture Increased Kyphosis L-Spine Posture Flattened Skin Assessment Incisional Assessment Incision Appearance/Comments well-healed, decreased scar mobility PT-OP-K Range of Motion Start: 06/08/22 12:11 Freq: Status: Active Protocol: Document 06/09/22 09:49 [facility] (Rec: 06/14/22 17:24 [facility] [id number]) Cervical Spine Range of Motion Cervical Spine Active Testing Position Sitting ROM Limitations Soft Tissue Tightness Comments approx 75% Shoulder Goniometric Range of Motion Shoulder john Shoulder ROM WFL No Comments mild dec all motions Shoulder ROM Limitations Shoulder ROM Limitations Muscle Weakness Elbow/Forearm Range of Motion Elbow/Forearm john Elbow/Forearm ROM WFL Yes Wrist Goniometric Range of Motion Wrist john Wrist ROM WFL Yes Hip Goniometric Range of Motion Hip john Hip ROM WFL No Flexion w/Knee Flexed 90 Straight Leg Raise 65 Extension 0 Abduction 2 Internal Rotation 15 External Rotation 45 Hip ROM Limitations Hip ROM Limitations Soft Tissue Tightness,Muscle Weakness Knee Goniometric Range of Motion Knee john Knee ROM WFL Yes Ankle and Foot Goniometric Range of Motion Ankle and Foot john Dorsiflexion with Knee Flexed 5 Dorsiflexion with Knee Extended 0 Ankle and Foot ROM Limitations ROM Limitations Soft Tissue Tightness PT-OP-M Strength Start: 06/08/22 12:11 Freq: Status: Active Protocol: Document 06/09/22 09:49 [facility] (Rec: 06/14/22 17:24 [facility] [id number]) Cervical Spine Strength Cervical Spine Manual Muscle Testing Testing Position Sitting Flexion (C1-2) 4+ Good+ Extension 4+ Good+ Rotation Left 4+ Good+ Rotation Right 4+ Good+ Lateral Flexion Left (C3) 4+ Good+ Lateral Flexion Right (C3) 4+ Good+ Trunk Strength Trunk Manual Muscle Testing Flexion 3+ Fair+ Extension 3+ Fair+ Shoulder Strength Shoulder Manual Muscle Testing john Flexion 4 Good Extension 4 Good Abduction (C5) 4 Good External Rotation 4 Good Internal Rotation 4 Good Elbow/Forearm Strength Elbow and Forearm Manual Muscle Testing john Flexion (C6) 4+ Good+ Extension (C7) 4+ Good+ Hip Strength Hip Manual Muscle Testing john Flexion (L2) 4 Good Extension (S1) 3+ Fair+ Adduction 4 Good External Rotation 3+ Fair+ Internal Rotation 4 Good Knee Strength Knee Manual Muscle Testing john Flexion (S2) 4- Good- Extension (L3) 4- Good- Ankle/Foot Strength Ankle and Foot Manual Muscle Testing john Dorsiflexion (L4) 4 Good Plantarflexion (S1) 4 Good PT-OP-Q Treatments Start: 06/08/22 12:11 Freq: Status: Active Protocol: Document 07/27/22 09:51 [facility] (Rec: 07/27/22 10:33 [facility] [id number]) Cardio Equipment Recumbent Stepper (Sci-Fit) Duration (Minutes) 10 Resistance 2 Seat Position 13 Other LE's only last 2 min Therapeutic Exercises Sitting Exercises STS Equipment Used mesh chair, BUE support ascend, no UE support desc but flops last 3 Reps/Minutes 10x Comments cue slow, eccentric control Standing Exercises step-ups Equipment Used 6 stairs, john railing Reps/Minutes 10x2 Comments 1 set leading R LE, one set L march Reps/Minutes 10x Therapeutic Activity Therapeutic Activity putting Comments 4 balls x 3, NO parallel bars, CG to min assist for balance Gait Training Gait Activity gait no device Device Used none 2 SPC Description gait training with SPC Device Used SPC x 2, SPC x 1, no device Level of Assistance CGA, Surface tile, carpet Distance/Duration 150 ft x 2, 75 ft x 1 Treatment Focus gait sequencing, safety, posturing, foot clearance Comments cued upright posture, gluteal activation fwd/bck/side Description walking, marching Device Used parallel bars Level of Assistance CGA Treatment Focus dec support, safety, upright posture, inc foot clearance PT-OP-T Assessment and Plan Start: 06/08/22 12:11 Freq: Status: Active Protocol: Document 07/27/22 09:51 [facility] (Rec: 07/27/22 10:33 [facility] [id number]) Physical Therapy Assessment Impairments Impairments Balance,Coordination, Functional Mobility,Gait, Strength,Transfers Goals Four Impairment patient unable to golf due to weakness, gait and balance dysfunction Short Term Goal (STG) Patient to improve functional strength, gait, and balance sufficient to be able to put golf ball on tonja with CGA and hit ball with min assist for balance STG Duration 07/24/22 Residential Goal (LTG) Patient will improve his functional strength, gait, and balance to be able to play golf with supervision only LTG Duration 09/11/22 Three Impairment trunk and LE weakness Impairment requires use of UE's for all transfers Short Term Goal (STG) Patient to be instructed in HEP to support therapy activities in the clinic and demonstrate compliance STG Duration 07/07/22 Residential Goal (LTG) Improve patient's functional strength as evidenced by ability to transfer sit to stand from standard height chair without use of UE's x 10 LTG Duration 09/06/22 Two Impairment gait dysfunction Impairment uses 4WW, 3WW primarily, has to go up and down stairs sideways 6 min walk test with 3WW 681 ft Short Term Goal (STG) Patient will be able to safely ascend and descend stairs with alternating pattern and begin gait training with 2 canes on level surfaces 06/25/22: receiprical stepping BHR SBA x8 stairs, side stepping BUE on L HR (home patterning), 170 ft B canes SBA. STG Duration 07/24/22 progressing 06/25/22 Seismograph Recorder Goal (LTG) Patient will be able to ambulate on all usual surfaces safely with 1-2 canes and improve 6 min walk test to at least 1000 ft to improve ability to ambulate successfully in the community. LTG Duration 09/06/22 One Impairment balance dysfunction Impairment Lester Balance score 27/56 indicating high fall risk Short Term Goal (STG) Improve Lester balance score to at least 37/56 to decrease risk of falls STG Duration 07/24/22 Seismograph Recorder Goal (LTG) Improve Lester Balance score to at least 45/56 to decrease risk of falls, allow for safe mobility in the home and community LTG Duration 09/06/22 Assessment Summary Assessment decreased steadiness today, uncertain reason, possibly compensating due to right knee discomfort, denied increase in pain with any therapy activities though. Recommend gait with 1 SPC next session. Physical Therapy Plan Frequency and Duration Frequency of Treatment 2x/Week Duration of treatment (weeks) 12 Plan of Care Start Date 06/09/22 Plan of Care End Date 09/06/22 Therapeutic Interventions Therapeutic Interventions Balance Training,Gait Training ,Home Exercise Program,Manual Therapy,Neuromuscular Re- education,Patient/Caregiver Education,Self-Care/Home Management,Soft Tissue Mobilization,Therapeutic Activities,Therapeutic Exercises Next Visit Focus/Plan Next Visit Plan gait with 1 cane, continue gait, balance, strengthening especially gluteals.
--- NOTE | 2022-07-30 11:29 | PT.OTN ---
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) Physical Therapy Treatment Note PT-OP-A Visit Information Start: 06/08/22 12:11 Freq: Status: Active Protocol: Document 07/30/22 09:06 NBM (Rec: 07/30/22 09:22 NBM [id number]) Out-Patient Physical Therapy Visit Information Visit Information Visit Type Treatment Note Visit Start Time 09:15 Visit Stop Time 10:03 Total Visit Minutes 48 Visit Number 11 Number of LEATHERSMITH Visits 1 Evaluation Information Evaluation Date 06/09/22 Precautions Precautions high fall risk PT-OP-B Current Condition Start: 06/08/22 12:11 Freq: Status: Active Protocol: Document 06/16/22 10:30 SAK (Rec: 06/16/22 11:18 SAK [id number]) Current Condition History of Current Condition Onset Date 04/12/21 Current Complaints weakness, balance and gait difficulty History of Current Condition Fell while walking, fractured T34. Had fusion, 5 wks [facility], then at at [place] until July 23 2021. Was at [facility] until the end of January. Now at home on [facility], [address] [place] [address]. Bedroom and bathroom on main floor. Uses 3WW, 4WW, has canes. Wants to wean off walker. Balance and fear of falling limit his mobility, has had a couple near falls since going home. Also has some nerve pain left ant and post chest. Was instructed in HEP, not doing theraband exercises. Is working on standing balance. Very little feeling in thighs, has some in lower legs and feet, the most feeling is in bottom of feet. On and off bowel and bladder issues. Prior Treatments and Tests 05/21/22: check-up at [place], all medical issues st able Treatment Goals Patient/Caregiver Goals play golf again, drive, walk without walker, in and out of car independent PT-OP-C Subjective Start: 06/08/22 12:11 Freq: Status: Active Protocol: Document 07/30/22 09:06 VINCENTM (Rec: 07/30/22 09:22 NBM [id number]) OP-PT Subjective Patient Comments Patient Comments Pt states his right knee feels better. I'd like to get rid of this walker. Pt admits to decreased HEP compliance and disappointment with not meeting his goal of walking without the walker by the new year. PT-OP-D Balance Start: 06/08/22 12:11 Freq: Status: Active Protocol: Document 06/09/22 09:49 [facility] (Rec: 06/14/22 17:24 [facility] [id number]) OP-PT Balance Assessment Sitting Balance Static Sitting Balance Ability Normal Dynamic Sitting Balance Ability Normal Standing Balance Static Standing Balance Ability Fair Dynamic Standing Balance Ability Poor Lester Balance Assessment Evaluation Sitting to Standing Ability Independent w/Hands Unsupported Stance Supervision- 2 minutes Sitting Unsupported, Feet on Floor Safely- 2 minutes Standing to Sitting Ability Assist, Use Legs on Chair Transfer Ability Safely, Hand Use Unsupported Stance- Eyes Closed Supervision, 10 seconds Unsupported Stance- Eyes Open Supervision to maintain Reaching Forward Standing Safely, 5 inches Pick- Up Object From Floor Requires Supervision Look Behind Shoulder - Standing Turns Sideways Only Turning 360 Degrees Requires Assistance Unsupported Stance, Alternating Feet on Assist to Prevent Fall Stair Unsupported Tandem Stance Balance Lost- Step/Stand Unilateral Leg Stance Unable,assist to not fall Total Score Lester Total Score (out of 56 points) 27 Cadet Fall Scale Copyright Permission PT-OP-E Functional Tests Start: 06/08/22 12:11 Freq: Status: Active Protocol: Document 06/09/22 09:49 [facility] (Rec: 06/14/22 17:24 [facility] [id number]) Functional Tests Timed Up and Go (TUG) Score 22 sec Comments 4WW PT-OP-G Mobility & Gait Start: 06/08/22 12:11 Freq: Status: Active Protocol: Document 06/09/22 09:49 [facility] (Rec: 06/14/22 17:24 [facility] [id number]) OP Mobility Evaluation Bed Mobility Rolling indep Supine to and from Sit indep OP Gait Assessment Gait Gait Assistance Required: Independent Assistive Devices Assistive Device 4 Wheeled Walker Orthotic/Prosthetic Devices or Brace: No Gait Deviations General Gait Pattern Ataxic,Decreased Stride Length ,Decreased Feet Clearance, Flexed Trunk,Wide Based Gait Factors Limiting Gait Function Factors Limiting Gait Function Abnormal Tonal Influences, Decreased Sensation,Decreased Strength,Poor Balance Stair Climbing Evaluation Technique/Endurance Stair Climbing Direction Ascend and Descend Comments Stair Climbing Comments sideways holding railing PT-OP-H Neuro Start: 06/08/22 12:11 Freq: Status: Active Protocol: Document 06/09/22 09:49 [facility] (Rec: 06/14/22 17:24 [facility] [id number]) Sensation Evaluation Gross Sensation Gross Sensation Left LE Impaired,Right LE Impaired Sensation Description Numbness PT-OP-J Posture/Palpation/Skin Start: 06/08/22 12:11 Freq: Status: Active Protocol: Document 06/09/22 09:49 [facility] (Rec: 06/14/22 17:24 [facility] [id number]) Posture Evaluation Position Standing Head/C-Spine Posture Forward Head T-Spine Posture Increased Kyphosis L-Spine Posture Flattened Skin Assessment Incisional Assessment Incision Appearance/Comments well-healed, decreased scar mobility PT-OP-K Range of Motion Start: 06/08/22 12:11 Freq: Status: Active Protocol: Document 06/09/22 09:49 [facility] (Rec: 06/14/22 17:24 [facility] [id number]) Cervical Spine Range of Motion Cervical Spine Active Testing Position Sitting ROM Limitations Soft Tissue Tightness Comments approx 75% Shoulder Goniometric Range of Motion Shoulder john Shoulder ROM WFL No Comments mild dec all motions Shoulder ROM Limitations Shoulder ROM Limitations Muscle Weakness Elbow/Forearm Range of Motion Elbow/Forearm john Elbow/Forearm ROM WFL Yes Wrist Goniometric Range of Motion Wrist john Wrist ROM WFL Yes Hip Goniometric Range of Motion Hip john Hip ROM WFL No Flexion w/Knee Flexed 90 Straight Leg Raise 65 Extension 0 Abduction 2 Internal Rotation 15 External Rotation 45 Hip ROM Limitations Hip ROM Limitations Soft Tissue Tightness,Muscle Weakness Knee Goniometric Range of Motion Knee john Knee ROM WFL Yes Ankle and Foot Goniometric Range of Motion Ankle and Foot john Dorsiflexion with Knee Flexed 5 Dorsiflexion with Knee Extended 0 Ankle and Foot ROM Limitations ROM Limitations Soft Tissue Tightness PT-OP-M Strength Start: 06/08/22 12:11 Freq: Status: Active Protocol: Document 06/09/22 09:49 [facility] (Rec: 06/14/22 17:24 [facility] [id number]) Cervical Spine Strength Cervical Spine Manual Muscle Testing Testing Position Sitting Flexion (C1-2) 4+ Good+ Extension 4+ Good+ Rotation Left 4+ Good+ Rotation Right 4+ Good+ Lateral Flexion Left (C3) 4+ Good+ Lateral Flexion Right (C3) 4+ Good+ Trunk Strength Trunk Manual Muscle Testing Flexion 3+ Fair+ Extension 3+ Fair+ Shoulder Strength Shoulder Manual Muscle Testing john Flexion 4 Good Extension 4 Good Abduction (C5) 4 Good External Rotation 4 Good Internal Rotation 4 Good Elbow/Forearm Strength Elbow and Forearm Manual Muscle Testing john Flexion (C6) 4+ Good+ Extension (C7) 4+ Good+ Hip Strength Hip Manual Muscle Testing john Flexion (L2) 4 Good Extension (S1) 3+ Fair+ Adduction 4 Good External Rotation 3+ Fair+ Internal Rotation 4 Good Knee Strength Knee Manual Muscle Testing john Flexion (S2) 4- Good- Extension (L3) 4- Good- Ankle/Foot Strength Ankle and Foot Manual Muscle Testing john Dorsiflexion (L4) 4 Good Plantarflexion (S1) 4 Good PT-OP-Q Treatments Start: 06/08/22 12:11 Freq: Status: Active Protocol: Document 07/30/22 09:06 [facility] (Rec: 07/30/22 09:22 [facility] [id number]) Cardio Equipment Recumbent Stepper (Sci-Fit) Duration (Minutes) 10 Resistance 2 Seat Position 13 Other LE's only last 2 min Therapeutic Exercises Sitting Exercises HS stretch Side bilateral Reps/Minutes 2x30 Comments cues for gentle stretch, not to force full knee extension, hold time STS Equipment Used mesh chair, BUE support ascend, no UE support desc but flops last 3 Reps/Minutes 10x Comments cue slow, eccentric control, glute squeeze Standing Exercises hip ext Standing Exercise Name HEP reviewed Equipment Used rail Reps/Minutes 10x 2 Comments cued posture, DF Gait Training Gait Activity 2 SPC Description gait training with SPC Device Used SPC x 2, SPC x 1, no device Level of Assistance CGA, Surface tile, carpet Distance/Duration 150 ft x 2, 75 ft x 1 Treatment Focus gait sequencing, safety, posturing, foot clearance Comments cued upright posture, gluteal activation SPC in LUE cues for sequencing and slower pacing to allow weaker RLE pushoff, and pt has good RUE arm swing. SPC in RUE has smoother sequencing but no LUE arm swing. fwd/bck/side Description walking, sidesteps Device Used parallel bars Level of Assistance CGA Treatment Focus dec support, safety, upright posture, inc foot clearance Comments cues for increased stride length and heelstrike to push- off, and glute facilitation. Sideways cues for neutral foot position. Self-Care/Home Management Treatment Education Patient Education Fall Risk,Home Exercise Program,Safety Other Education -instructed pt on hamstring stretch not to force full knee extension, gentle pull, education to check with hand for palpable tightness to know it is stretching. Edu for hold at least 30s and alternatives to counting 30s ( breath cycles, song, timer). -Pt's 3WW is not steady with brakes locked - pt encouraged to use 4WW instead for safety. -Reviewed with pt progress from w/c only to trialing unilateral single point cane today and realistic goal- setting so as not to become discouraged; discussed how HEP ex's relate to pt's goal of walking without walker and pt expressed understanding and improved motivation for HEP compliance end of session. PT-OP-T Assessment and Plan Start: 06/08/22 12:11 Freq: Status: Active Protocol: Document 07/30/22 09:06 [facility] (Rec: 07/30/22 09:22 [facility] [id number]) Physical Therapy Assessment Impairments Impairments Balance,Coordination, Functional Mobility,Gait, Strength,Transfers Goals Four Impairment patient unable to golf due to weakness, gait and balance dysfunction Short Term Goal (STG) Patient to improve functional strength, gait, and balance sufficient to be able to put golf ball on tonja with CGA and hit ball with min assist for balance STG Duration 07/24/22 Wire Technician Goal (LTG) Patient will improve his functional strength, gait, and balance to be able to play golf with supervision only LTG Duration 09/11/22 Three Impairment trunk and LE weakness Impairment requires use of UE's for all transfers Short Term Goal (STG) Patient to be instructed in HEP to support therapy activities in the clinic and demonstrate compliance STG Duration 07/07/22 Shelter Goal (LTG) Improve patient's functional strength as evidenced by ability to transfer sit to stand from standard height chair without use of UE's x 10 LTG Duration 09/06/22 Two Impairment gait dysfunction Impairment uses 4WW, 3WW primarily, has to go up and down stairs sideways 6 min walk test with 3WW 681 ft Short Term Goal (STG) Patient will be able to safely ascend and descend stairs with alternating pattern and begin gait training with 2 canes on level surfaces 06/25/22: receiprical stepping BHR SBA x8 stairs, side stepping BUE on L HR (home patterning), 170 ft B canes SBA. STG Duration 07/24/22 progressing 06/25/22 Shelter Goal (LTG) Patient will be able to ambulate on all usual surfaces safely with 1-2 canes and improve 6 min walk test to at least 1000 ft to improve ability to ambulate successfully in the community. LTG Duration 09/06/22 One Impairment balance dysfunction Impairment Lester Balance score 27/56 indicating high fall risk Short Term Goal (STG) Improve Lester balance score to at least 37/56 to decrease risk of falls STG Duration 07/24/22 Shelter Goal (LTG) Improve Lester Balance score to at least 45/56 to decrease risk of falls, allow for safe mobility in the home and community LTG Duration 09/06/22 Assessment Summary Assessment Pt instructed on seated hamstring stretch not to force full knee extension, gentle pull, education to check with hand on hamstring for palpable tightness to know it is stretching. Edu for hold at least 30s and alternatives to counting 30s (breath cycles, song, timer). Chirag demonstrates improved self-awareness of glute activation with sit to stands w/ cueing and repetition. Pt's gait w/ SPC in LUE requires cues for sequencing and slower pacing to allow weaker RLE pushoff, and pt has good RUE arm swing. Pt's gait w/ SPC in RUE has smoother sequencing but no LUE arm swing, possibly due to pt apprehension for falling. -Pt's 3WW is not steady with brakes locked - pt educated to use 4WW instead for safety. Reviewed with pt progress from wheelchair only to trialing unilateral single point cane today and realistic goal- setting so as not to become discouraged; discussed how HEP ex's relate to pt's goal of walking without walker and pt expressed understanding and improved motivation for HEP compliance end of session. Physical Therapy Plan Frequency and Duration Frequency of Treatment 2x/Week Duration of treatment (weeks) 12 Plan of Care Start Date 06/09/22 Plan of Care End Date 09/06/22 Therapeutic Interventions Therapeutic Interventions Balance Training,Gait Training ,Home Exercise Program,Manual Therapy,Neuromuscular Re- education,Patient/Caregiver Education,Self-Care/Home Management,Soft Tissue Mobilization,Therapeutic Activities,Therapeutic Exercises Next Visit Focus/Plan Next Visit Plan Pt would like to discuss leaving walker at home and bringing only 2 SPCs. Check if still using 3WW (safety with brake issue) and for improving HEP compliance since last visit. POC: gait with 1 cane, continue gait, balance, strengthening especially gluteals.
--- NOTE | 2022-08-03 12:09 | PT.OTN ---
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) Physical Therapy Treatment Note PT-OP-A Visit Information Start: 06/08/22 12:11 Freq: Status: Active Protocol: Document 08/03/22 09:51 SAK (Rec: 08/03/22 10:38 SAK [id number]) Out-Patient Physical Therapy Visit Information Visit Information Visit Type Treatment Note Visit Start Time 09:51 Total Visit Minutes 48 Visit Number 12 Number of PUMP ERECTOR Visits 1 Evaluation Information Evaluation Date 06/09/22 Precautions Precautions high fall risk PT-OP-B Current Condition Start: 06/08/22 12:11 Freq: Status: Active Protocol: Document 06/16/22 10:30 SAK (Rec: 06/16/22 11:18 SAK [id number]) Current Condition History of Current Condition Onset Date 04/12/21 Current Complaints weakness, balance and gait difficulty History of Current Condition Fell while walking, fractured T34. Had fusion, 5 wks [facility], then at at [place] until July 23 2021. Was at [facility], [place] until the end of January. Now at home on [facility], [address] [facility]. Bedroom and bathroom on main floor. Uses 3WW, 4WW, has canes. Wants to wean off walker. Balance and fear of falling limit his mobility, has had a couple near falls since going home. Also has some nerve pain left ant and post chest. Was instructed in HEP, not doing theraband exercises. Is working on standing balance. Very little feeling in thighs, has some in lower legs and feet, the most feeling is in bottom of feet. On and off bowel and bladder issues. Prior Treatments and Tests 05/21/22: check-up at [place], all medical issues st able Treatment Goals Patient/Caregiver Goals play golf again, drive, walk without walker, in and out of car independent PT-OP-C Subjective Start: 06/08/22 12:11 Freq: Status: Active Protocol: Document 08/03/22 09:51 SAK (Rec: 08/03/22 10:38 SAK [id number]) OP-PT Subjective Patient Comments Patient Comments No new c/o. Improved compliance to HEP. Thinking he could come to PT with SPCs only. PT-OP-D Balance Start: 06/08/22 12:11 Freq: Status: Active Protocol: Document 06/09/22 09:49 [facility] (Rec: 06/14/22 17:24 [facility] [id number]) OP-PT Balance Assessment Sitting Balance Static Sitting Balance Ability Normal Dynamic Sitting Balance Ability Normal Standing Balance Static Standing Balance Ability Fair Dynamic Standing Balance Ability Poor Lester Balance Assessment Evaluation Sitting to Standing Ability Independent w/Hands Unsupported Stance Supervision- 2 minutes Sitting Unsupported, Feet on Floor Safely- 2 minutes Standing to Sitting Ability Assist, Use Legs on Chair Transfer Ability Safely, Hand Use Unsupported Stance- Eyes Closed Supervision, 10 seconds Unsupported Stance- Eyes Open Supervision to maintain Reaching Forward Standing Safely, 5 inches Pick- Up Object From Floor Requires Supervision Look Behind Shoulder - Standing Turns Sideways Only Turning 360 Degrees Requires Assistance Unsupported Stance, Alternating Feet on Assist to Prevent Fall Stair Unsupported Tandem Stance Balance Lost- Step/Stand Unilateral Leg Stance Unable,assist to not fall Total Score Lester Total Score (out of 56 points) 27 Cadet Fall Scale Copyright Permission PT-OP-E Functional Tests Start: 06/08/22 12:11 Freq: Status: Active Protocol: Document 06/09/22 09:49 [facility] (Rec: 06/14/22 17:24 [facility] [id number]) Functional Tests Timed Up and Go (TUG) Score 22 sec Comments 4WW PT-OP-G Mobility & Gait Start: 06/08/22 12:11 Freq: Status: Active Protocol: Document 06/09/22 09:49 [facility] (Rec: 06/14/22 17:24 [facility] [id number]) OP Mobility Evaluation Bed Mobility Rolling indep Supine to and from Sit indep OP Gait Assessment Gait Gait Assistance Required: Independent Assistive Devices Assistive Device 4 Wheeled Walker Orthotic/Prosthetic Devices or Brace: No Gait Deviations General Gait Pattern Ataxic,Decreased Stride Length ,Decreased Feet Clearance, Flexed Trunk,Wide Based Gait Factors Limiting Gait Function Factors Limiting Gait Function Abnormal Tonal Influences, Decreased Sensation,Decreased Strength,Poor Balance Stair Climbing Evaluation Technique/Endurance Stair Climbing Direction Ascend and Descend Comments Stair Climbing Comments sideways holding railing PT-OP-H Neuro Start: 06/08/22 12:11 Freq: Status: Active Protocol: Document 06/09/22 09:49 [facility] (Rec: 06/14/22 17:24 [facility] [id number]) Sensation Evaluation Gross Sensation Gross Sensation Left LE Impaired,Right LE Impaired Sensation Description Numbness PT-OP-J Posture/Palpation/Skin Start: 06/08/22 12:11 Freq: Status: Active Protocol: Document 06/09/22 09:49 [facility] (Rec: 06/14/22 17:24 [facility] [id number]) Posture Evaluation Position Standing Head/C-Spine Posture Forward Head T-Spine Posture Increased Kyphosis L-Spine Posture Flattened Skin Assessment Incisional Assessment Incision Appearance/Comments well-healed, decreased scar mobility PT-OP-K Range of Motion Start: 06/08/22 12:11 Freq: Status: Active Protocol: Document 06/09/22 09:49 [facility] (Rec: 06/14/22 17:24 [facility] [id number]) Cervical Spine Range of Motion Cervical Spine Active Testing Position Sitting ROM Limitations Soft Tissue Tightness Comments approx 75% Shoulder Goniometric Range of Motion Shoulder john Shoulder ROM WFL No Comments mild dec all motions Shoulder ROM Limitations Shoulder ROM Limitations Muscle Weakness Elbow/Forearm Range of Motion Elbow/Forearm john Elbow/Forearm ROM WFL Yes Wrist Goniometric Range of Motion Wrist john Wrist ROM WFL Yes Hip Goniometric Range of Motion Hip john Hip ROM WFL No Flexion w/Knee Flexed 90 Straight Leg Raise 65 Extension 0 Abduction 2 Internal Rotation 15 External Rotation 45 Hip ROM Limitations Hip ROM Limitations Soft Tissue Tightness,Muscle Weakness Knee Goniometric Range of Motion Knee john Knee ROM WFL Yes Ankle and Foot Goniometric Range of Motion Ankle and Foot john Dorsiflexion with Knee Flexed 5 Dorsiflexion with Knee Extended 0 Ankle and Foot ROM Limitations ROM Limitations Soft Tissue Tightness PT-OP-M Strength Start: 06/08/22 12:11 Freq: Status: Active Protocol: Document 06/09/22 09:49 [facility] (Rec: 06/14/22 17:24 [facility] [id number]) Cervical Spine Strength Cervical Spine Manual Muscle Testing Testing Position Sitting Flexion (C1-2) 4+ Good+ Extension 4+ Good+ Rotation Left 4+ Good+ Rotation Right 4+ Good+ Lateral Flexion Left (C3) 4+ Good+ Lateral Flexion Right (C3) 4+ Good+ Trunk Strength Trunk Manual Muscle Testing Flexion 3+ Fair+ Extension 3+ Fair+ Shoulder Strength Shoulder Manual Muscle Testing john Flexion 4 Good Extension 4 Good Abduction (C5) 4 Good External Rotation 4 Good Internal Rotation 4 Good Elbow/Forearm Strength Elbow and Forearm Manual Muscle Testing john Flexion (C6) 4+ Good+ Extension (C7) 4+ Good+ Hip Strength Hip Manual Muscle Testing john Flexion (L2) 4 Good Extension (S1) 3+ Fair+ Adduction 4 Good External Rotation 3+ Fair+ Internal Rotation 4 Good Knee Strength Knee Manual Muscle Testing john Flexion (S2) 4- Good- Extension (L3) 4- Good- Ankle/Foot Strength Ankle and Foot Manual Muscle Testing john Dorsiflexion (L4) 4 Good Plantarflexion (S1) 4 Good PT-OP-Q Treatments Start: 06/08/22 12:11 Freq: Status: Active Protocol: Document 08/03/22 09:51 SAK (Rec: 08/03/22 10:38 [facility] [id number]) Cardio Equipment Recumbent Stepper (Sci-Fit) Duration (Minutes) 5 Resistance 2,5 Seat Position 13 Other LE's only last 2 min Therapeutic Exercises Sitting Exercises HS stretch Side bilateral Reps/Minutes 2x30 Comments cues for gentle stretch, not to force full knee extension, hold time STS Equipment Used mesh chair, BUE support ascend, no UE support desc but flops last 3 Reps/Minutes 10x Comments cue slow, eccentric control, glute squeeze Standing Exercises SLS Equipment Used parallel bars Reps/Minutes 5x ea LE Comments mod UE support Gait Training Gait Activity stairs Description asc/descend Device Used 1 rail, 1 cane Level of Assistance CG Surface 4 stairs Distance/Duration 20 stairs Treatment Focus receiprocal stepping, foot clearance, gluteal activation 2 SPC Device Used SPC x 2, SPC x 1, no device Level of Assistance CGA, Surface tile, carpet Distance/Duration 150 ft x 2, 75 ft x 2 Treatment Focus gait sequencing, safety, posturing, foot clearance Comments cued upright posture, gluteal activation SPC in LUE cues for sequencing and slower pacing to allow weaker RLE pushoff, and pt has good RUE arm swing. SPC in RUE has smoother sequencing but no LUE arm swing. fwd/bck/side Description walking, sidesteps Device Used parallel bars Level of Assistance CGA Treatment Focus dec support, safety, upright posture, inc foot clearance Comments cues for increased stride length and heelstrike to push- off, and glute facilitation. Sideways cues for neutral foot position. Self-Care/Home Management Treatment Education Other Education Increase use of canes at home, inc HEP compliance, less sitting. PT-OP-T Assessment and Plan Start: 06/08/22 12:11 Freq: Status: Active Protocol: Document 08/03/22 09:51 [facility] (Rec: 08/03/22 12:06 [facility] [id number]) Physical Therapy Assessment Impairments Impairments Balance,Coordination, Functional Mobility,Gait, Strength,Transfers Goals Four Impairment patient unable to golf due to weakness, gait and balance dysfunction Short Term Goal (STG) Patient to improve functional strength, gait, and balance sufficient to be able to put golf ball on tonja with CGA and hit ball with min assist for balance STG Duration 07/24/22 Detention Goal (LTG) Patient will improve his functional strength, gait, and balance to be able to play golf with supervision only LTG Duration 09/11/22 Three Impairment trunk and LE weakness Impairment requires use of UE's for all transfers Short Term Goal (STG) Patient to be instructed in HEP to support therapy activities in the clinic and demonstrate compliance STG Duration 07/07/22 Orthopedic Physician Assistant Goal (LTG) Improve patient's functional strength as evidenced by ability to transfer sit to stand from standard height chair without use of UE's x 10 LTG Duration 09/06/22 Two Impairment gait dysfunction Impairment uses 4WW, 3WW primarily, has to go up and down stairs sideways 6 min walk test with 3WW 681 ft Short Term Goal (STG) Patient will be able to safely ascend and descend stairs with alternating pattern and begin gait training with 2 canes on level surfaces 06/25/22: receiprical stepping BHR SBA x8 stairs, side stepping BUE on L HR (home patterning), 170 ft B canes SBA. STG Duration 07/24/22 progressing 06/25/22 Detention Goal (LTG) Patient will be able to ambulate on all usual surfaces safely with 1-2 canes and improve 6 min walk test to at least 1000 ft to improve ability to ambulate successfully in the community. LTG Duration 09/06/22 One Impairment balance dysfunction Impairment Lester Balance score 27/56 indicating high fall risk Short Term Goal (STG) Improve Lester balance score to at least 37/56 to decrease risk of falls STG Duration 07/24/22 Orthopedic Physician Assistant Goal (LTG) Improve Lester Balance score to at least 45/56 to decrease risk of falls, allow for safe mobility in the home and community LTG Duration 09/06/22 Assessment Summary Assessment Patient safe ambulation with 2 canes, encouraged increased use of canes at home, unsafe use of 1 cane or no canes. Emphasis on continue inc HEP compliance, less sitting still . Low muscle mass gluteals, mod cues for activation, need to work on in supine for dbl and single leg bridge. Physical Therapy Plan Frequency and Duration Frequency of Treatment 2x/Week Duration of treatment (weeks) 12 Plan of Care Start Date 06/09/22 Plan of Care End Date 09/06/22 Therapeutic Interventions Therapeutic Interventions Balance Training,Gait Training ,Home Exercise Program,Manual Therapy,Neuromuscular Re- education,Patient/Caregiver Education,Self-Care/Home Management,Soft Tissue Mobilization,Therapeutic Activities,Therapeutic Exercises Next Visit Focus/Plan Next Note Type Treatment Note Next Visit Plan Continue emphasis on gluteal strengthening, gait training, balance training. Continue golf activities for functional balance training.
--- NOTE | 2022-08-09 16:39 | PT.OTN ---
Current Diagnoses Paraplegia, unspecified (08/09/22) Paraplegia, incomplete (08/09/22) Physical Therapy Treatment Note PT-OP-A Visit Information Start: 06/08/22 12:11 Freq: Status: Active Protocol: Document 08/09/22 09:47 SAK (Rec: 08/09/22 10:33 SAK [id number]) Out-Patient Physical Therapy Visit Information Visit Information Visit Type Treatment Note Visit Start Time 09:44 Visit Stop Time 10:31 Total Visit Minutes 45 Visit Number 12 Number of PIPE FITTER WELDING Visits 0 Evaluation Information Evaluation Date 06/09/22 Precautions Precautions high fall risk PT-OP-B Current Condition Start: 06/08/22 12:11 Freq: Status: Active Protocol: Document 06/16/22 10:30 SAK (Rec: 06/16/22 11:18 SAK [id number]) Current Condition History of Current Condition Onset Date 04/12/21 Current Complaints weakness, balance and gait difficulty History of Current Condition Fell while walking, fractured T34. Had fusion, 5 wks [facility], then at at [place] until July 23 2021. Was at [facility] until the end of January. Now at home on [facility], [address] [place] [id number]. Bedroom and bathroom on main floor. Uses 3WW, 4WW, has canes. Wants to wean off walker. Balance and fear of falling limit his mobility, has had a couple near falls since going home. Also has some nerve pain left ant and post chest. Was instructed in HEP, not doing theraband exercises. Is working on standing balance. Very little feeling in thighs, has some in lower legs and feet, the most feeling is in bottom of feet. On and off bowel and bladder issues. Prior Treatments and Tests 05/21/22: check-up at [place], all medical issues st able Treatment Goals Patient/Caregiver Goals play golf again, drive, walk without walker, in and out of car independent PT-OP-C Subjective Start: 06/08/22 12:11 Freq: Status: Active Protocol: Document 08/09/22 09:47 SAK (Rec: 08/09/22 16:32 SAK [id number]) OP-PT Subjective Patient Comments Patient Comments I'm trying to do a lot of walking and my balance exercises. PT-OP-D Balance Start: 06/08/22 12:11 Freq: Status: Active Protocol: Document 06/09/22 09:49 [facility] (Rec: 06/14/22 17:24 [facility] [id number]) OP-PT Balance Assessment Sitting Balance Static Sitting Balance Ability Normal Dynamic Sitting Balance Ability Normal Standing Balance Static Standing Balance Ability Fair Dynamic Standing Balance Ability Poor Lester Balance Assessment Evaluation Sitting to Standing Ability Independent w/Hands Unsupported Stance Supervision- 2 minutes Sitting Unsupported, Feet on Floor Safely- 2 minutes Standing to Sitting Ability Assist, Use Legs on Chair Transfer Ability Safely, Hand Use Unsupported Stance- Eyes Closed Supervision, 10 seconds Unsupported Stance- Eyes Open Supervision to maintain Reaching Forward Standing Safely, 5 inches Pick- Up Object From Floor Requires Supervision Look Behind Shoulder - Standing Turns Sideways Only Turning 360 Degrees Requires Assistance Unsupported Stance, Alternating Feet on Assist to Prevent Fall Stair Unsupported Tandem Stance Balance Lost- Step/Stand Unilateral Leg Stance Unable,assist to not fall Total Score Lester Total Score (out of 56 points) 27 Cadet Fall Scale Copyright Permission PT-OP-E Functional Tests Start: 06/08/22 12:11 Freq: Status: Active Protocol: Document 06/09/22 09:49 [facility] (Rec: 06/14/22 17:24 [facility] [id number]) Functional Tests Timed Up and Go (TUG) Score 22 sec Comments 4WW PT-OP-G Mobility & Gait Start: 06/08/22 12:11 Freq: Status: Active Protocol: Document 06/09/22 09:49 [facility] (Rec: 06/14/22 17:24 [facility] [id number]) OP Mobility Evaluation Bed Mobility Rolling indep Supine to and from Sit indep OP Gait Assessment Gait Gait Assistance Required: Independent Assistive Devices Assistive Device 4 Wheeled Walker Orthotic/Prosthetic Devices or Brace: No Gait Deviations General Gait Pattern Ataxic,Decreased Stride Length ,Decreased Feet Clearance, Flexed Trunk,Wide Based Gait Factors Limiting Gait Function Factors Limiting Gait Function Abnormal Tonal Influences, Decreased Sensation,Decreased Strength,Poor Balance Stair Climbing Evaluation Technique/Endurance Stair Climbing Direction Ascend and Descend Comments Stair Climbing Comments sideways holding railing PT-OP-H Neuro Start: 06/08/22 12:11 Freq: Status: Active Protocol: Document 06/09/22 09:49 [facility] (Rec: 06/14/22 17:24 [facility] [id number]) Sensation Evaluation Gross Sensation Gross Sensation Left LE Impaired,Right LE Impaired Sensation Description Numbness PT-OP-J Posture/Palpation/Skin Start: 06/08/22 12:11 Freq: Status: Active Protocol: Document 06/09/22 09:49 [facility] (Rec: 06/14/22 17:24 [facility] [id number]) Posture Evaluation Position Standing Head/C-Spine Posture Forward Head T-Spine Posture Increased Kyphosis L-Spine Posture Flattened Skin Assessment Incisional Assessment Incision Appearance/Comments well-healed, decreased scar mobility PT-OP-K Range of Motion Start: 06/08/22 12:11 Freq: Status: Active Protocol: Document 06/09/22 09:49 [facility] (Rec: 06/14/22 17:24 [facility] [id number]) Cervical Spine Range of Motion Cervical Spine Active Testing Position Sitting ROM Limitations Soft Tissue Tightness Comments approx 75% Shoulder Goniometric Range of Motion Shoulder john Shoulder ROM WFL No Comments mild dec all motions Shoulder ROM Limitations Shoulder ROM Limitations Muscle Weakness Elbow/Forearm Range of Motion Elbow/Forearm john Elbow/Forearm ROM WFL Yes Wrist Goniometric Range of Motion Wrist john Wrist ROM WFL Yes Hip Goniometric Range of Motion Hip john Hip ROM WFL No Flexion w/Knee Flexed 90 Straight Leg Raise 65 Extension 0 Abduction 2 Internal Rotation 15 External Rotation 45 Hip ROM Limitations Hip ROM Limitations Soft Tissue Tightness,Muscle Weakness Knee Goniometric Range of Motion Knee john Knee ROM WFL Yes Ankle and Foot Goniometric Range of Motion Ankle and Foot john Dorsiflexion with Knee Flexed 5 Dorsiflexion with Knee Extended 0 Ankle and Foot ROM Limitations ROM Limitations Soft Tissue Tightness PT-OP-M Strength Start: 06/08/22 12:11 Freq: Status: Active Protocol: Document 06/09/22 09:49 [facility] (Rec: 06/14/22 17:24 [facility] [id number]) Cervical Spine Strength Cervical Spine Manual Muscle Testing Testing Position Sitting Flexion (C1-2) 4+ Good+ Extension 4+ Good+ Rotation Left 4+ Good+ Rotation Right 4+ Good+ Lateral Flexion Left (C3) 4+ Good+ Lateral Flexion Right (C3) 4+ Good+ Trunk Strength Trunk Manual Muscle Testing Flexion 3+ Fair+ Extension 3+ Fair+ Shoulder Strength Shoulder Manual Muscle Testing john Flexion 4 Good Extension 4 Good Abduction (C5) 4 Good External Rotation 4 Good Internal Rotation 4 Good Elbow/Forearm Strength Elbow and Forearm Manual Muscle Testing john Flexion (C6) 4+ Good+ Extension (C7) 4+ Good+ Hip Strength Hip Manual Muscle Testing john Flexion (L2) 4 Good Extension (S1) 3+ Fair+ Adduction 4 Good External Rotation 3+ Fair+ Internal Rotation 4 Good Knee Strength Knee Manual Muscle Testing john Flexion (S2) 4- Good- Extension (L3) 4- Good- Ankle/Foot Strength Ankle and Foot Manual Muscle Testing john Dorsiflexion (L4) 4 Good Plantarflexion (S1) 4 Good PT-OP-Q Treatments Start: 06/08/22 12:11 Freq: Status: Active Protocol: Document 08/09/22 09:47 [facility] (Rec: 08/09/22 10:33 [facility] [id number]) Cardio Equipment Recumbent Stepper (Sci-Fit) Duration (Minutes) 5 Resistance 2.5 Seat Position 12 Other LE's only last 2 min Gym Equipment Shuttle Balance chains red Details bal and wt shift fwd/bck, side to side Gait Training Gait Activity stairs Description asc/descend Device Used 1 rail, 1 cane Level of Assistance CG Surface 6stairs Distance/Duration 20 stairs Treatment Focus receiprocal stepping, foot clearance, gluteal activation 2 SPC Device Used SPC x 2, SPC x 1 Level of Assistance CGA, Surface tile, carpet Distance/Duration 75, 25 SPC x 2, 75 SPC x 1 Treatment Focus gait sequencing, safety, posturing, foot clearance Comments cued upright posture, gluteal activation SPC in LUE cues for sequencing and slower pacing to allow weaker RLE pushoff, and pt has good RUE arm swing. SPC in RUE has smoother sequencing but no LUE arm swing. Neuro Re-Education Treatment Balance Activities obstacle course Details foam blue, hurdles, 4 box, 6 box, black foam, donaldson foam Reps/Duration 8x Comments 6x with 2 canes, 2 times with 1 cane parker stepping Reps/Duration 5 hurdles x 4 Comments CGA 2 canes PT-OP-T Assessment and Plan Start: 06/08/22 12:11 Freq: Status: Active Protocol: Document 08/09/22 09:47 [facility] (Rec: 08/09/22 10:33 [facility] [id number]) Physical Therapy Assessment Impairments Impairments Balance,Coordination, Functional Mobility,Gait, Strength,Transfers Goals Four Impairment patient unable to golf due to weakness, gait and balance dysfunction Short Term Goal (STG) Patient to improve functional strength, gait, and balance sufficient to be able to put golf ball on tonja with CGA and hit ball with min assist for balance 08/09/22: goal met STG Duration 07/24/22 Coding Machine Operator Goal (LTG) Patient will improve his functional strength, gait, and balance to be able to play golf with supervision only LTG Duration 09/11/22 Three Impairment trunk and LE weakness Impairment requires use of UE's for all transfers Short Term Goal (STG) Patient to be instructed in HEP to support therapy activities in the clinic and demonstrate compliance 08/09/22: goal met STG Duration goal met Assisted Goal (LTG) Improve patient's functional strength as evidenced by ability to transfer sit to stand from standard height chair without use of UE's x 10 LTG Duration 09/06/22 Two Impairment gait dysfunction Impairment uses 4WW, 3WW primarily, has to go up and down stairs sideways 6 min walk test with 3WW 681 ft Short Term Goal (STG) Patient will be able to safely ascend and descend stairs with alternating pattern and begin gait training with 2 canes on level surfaces 06/25/22: receiprical stepping BHR SBA x8 stairs, side stepping BUE on L HR (home patterning), 170 ft B canes SBA. 08/09/22: goal met STG Duration goal met Assisted Goal (LTG) Patient will be able to ambulate on all usual surfaces safely with 1-2 canes and improve 6 min walk test to at least 1000 ft to improve ability to ambulate successfully in the community. LTG Duration 09/06/22 One Impairment balance dysfunction Impairment Lester Balance score 27/56 indicating high fall risk Short Term Goal (STG) Improve Lester balance score to at least 37/56 to decrease risk of falls 08/09/22: goal progress STG Duration 07/24/22 Assisted Goal (LTG) Improve Lester Balance score to at least 45/56 to decrease risk of falls, allow for safe mobility in the home and community LTG Duration 09/06/22 Progress Towards Goals Progress Towards Goals Progressing Toward Goals Assessment Summary Assessment Good progress with balance, progression of obstacle course ; CGA to min assist with obstacle course, mod A x 2 descending from 6 box. Improving ability to ambulate on uneven surfaces. Physical Therapy Plan Frequency and Duration Frequency of Treatment 2x/Week Duration of treatment (weeks) 12 Plan of Care Start Date 06/09/22 Plan of Care End Date 09/06/22 Therapeutic Interventions Therapeutic Interventions Balance Training,Gait Training ,Home Exercise Program,Manual Therapy,Neuromuscular Re- education,Patient/Caregiver Education,Self-Care/Home Management,Soft Tissue Mobilization,Therapeutic Activities,Therapeutic Exercises Next Visit Focus/Plan Next Note Type Treatment Note Next Visit Plan Continue PT, emphasis on gait training with canes, 1 cane, no cane, gait on uneven surfaces. Work on SLS, push- off phase of gait.
--- NOTE | 2022-08-11 16:34 | PT.OTN ---
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) Physical Therapy Treatment Note PT-OP-A Visit Information Start: 06/08/22 12:11 Freq: Status: Active Protocol: Document 08/11/22 09:52 SAK (Rec: 08/11/22 10:32 SAK [id number]) Out-Patient Physical Therapy Visit Information Visit Information Visit Type Treatment Note Visit Start Time 09:44 Visit Stop Time 10:31 Total Visit Minutes 45 Visit Number 13 Number of PATIENT REGISTRATION REPRESENTATIVE Visits 0 Evaluation Information Evaluation Date 06/09/22 Precautions Precautions high fall risk PT-OP-B Current Condition Start: 06/08/22 12:11 Freq: Status: Active Protocol: Document 06/16/22 10:30 SAK (Rec: 06/16/22 11:18 SAK [id number]) Current Condition History of Current Condition Onset Date 04/12/21 Current Complaints weakness, balance and gait difficulty History of Current Condition Fell while walking, fractured T34. Had fusion, 5 wks [facility], then at at [facility] until July [address] Was at [facility] until the end of January. Now at home on [facility], [address] [place] [address]. Bedroom and bathroom on main floor. Uses 3WW, 4WW, has canes. Wants to wean off walker. Balance and fear of falling limit his mobility, has had a couple near falls since going home. Also has some nerve pain left ant and post chest. Was instructed in HEP, not doing theraband exercises. Is working on standing balance. Very little feeling in thighs, has some in lower legs and feet, the most feeling is in bottom of feet. On and off bowel and bladder issues. Prior Treatments and Tests 05/21/22: check-up at [facility], all medical issues st able Treatment Goals Patient/Caregiver Goals play golf again, drive, walk without walker, in and out of car independent PT-OP-C Subjective Start: 06/08/22 12:11 Freq: Status: Active Protocol: Document 08/09/22 09:47 SAK (Rec: 08/09/22 16:32 SAK [id number]) OP-PT Subjective Patient Comments Patient Comments I'm trying to do a lot of walking and my balance exercises. PT-OP-D Balance Start: 06/08/22 12:11 Freq: Status: Active Protocol: Document 06/09/22 09:49 [facility] (Rec: 06/14/22 17:24 [facility] [id number]) OP-PT Balance Assessment Sitting Balance Static Sitting Balance Ability Normal Dynamic Sitting Balance Ability Normal Standing Balance Static Standing Balance Ability Fair Dynamic Standing Balance Ability Poor Lester Balance Assessment Evaluation Sitting to Standing Ability Independent w/Hands Unsupported Stance Supervision- 2 minutes Sitting Unsupported, Feet on Floor Safely- 2 minutes Standing to Sitting Ability Assist, Use Legs on Chair Transfer Ability Safely, Hand Use Unsupported Stance- Eyes Closed Supervision, 10 seconds Unsupported Stance- Eyes Open Supervision to maintain Reaching Forward Standing Safely, 5 inches Pick- Up Object From Floor Requires Supervision Look Behind Shoulder - Standing Turns Sideways Only Turning 360 Degrees Requires Assistance Unsupported Stance, Alternating Feet on Assist to Prevent Fall Stair Unsupported Tandem Stance Balance Lost- Step/Stand Unilateral Leg Stance Unable,assist to not fall Total Score Lester Total Score (out of 56 points) 27 Cadet Fall Scale Copyright Permission PT-OP-E Functional Tests Start: 06/08/22 12:11 Freq: Status: Active Protocol: Document 06/09/22 09:49 [facility] (Rec: 06/14/22 17:24 [facility] [id number]) Functional Tests Timed Up and Go (TUG) Score 22 sec Comments 4WW PT-OP-G Mobility & Gait Start: 06/08/22 12:11 Freq: Status: Active Protocol: Document 06/09/22 09:49 [facility] (Rec: 06/14/22 17:24 [facility] [id number]) OP Mobility Evaluation Bed Mobility Rolling indep Supine to and from Sit indep OP Gait Assessment Gait Gait Assistance Required: Independent Assistive Devices Assistive Device 4 Wheeled Walker Orthotic/Prosthetic Devices or Brace: No Gait Deviations General Gait Pattern Ataxic,Decreased Stride Length ,Decreased Feet Clearance, Flexed Trunk,Wide Based Gait Factors Limiting Gait Function Factors Limiting Gait Function Abnormal Tonal Influences, Decreased Sensation,Decreased Strength,Poor Balance Stair Climbing Evaluation Technique/Endurance Stair Climbing Direction Ascend and Descend Comments Stair Climbing Comments sideways holding railing PT-OP-H Neuro Start: 06/08/22 12:11 Freq: Status: Active Protocol: Document 06/09/22 09:49 [facility] (Rec: 06/14/22 17:24 [facility] [id number]) Sensation Evaluation Gross Sensation Gross Sensation Left LE Impaired,Right LE Impaired Sensation Description Numbness PT-OP-J Posture/Palpation/Skin Start: 06/08/22 12:11 Freq: Status: Active Protocol: Document 06/09/22 09:49 [facility] (Rec: 06/14/22 17:24 [facility] [id number]) Posture Evaluation Position Standing Head/C-Spine Posture Forward Head T-Spine Posture Increased Kyphosis L-Spine Posture Flattened Skin Assessment Incisional Assessment Incision Appearance/Comments well-healed, decreased scar mobility PT-OP-K Range of Motion Start: 06/08/22 12:11 Freq: Status: Active Protocol: Document 06/09/22 09:49 [facility] (Rec: 06/14/22 17:24 [facility] [id number]) Cervical Spine Range of Motion Cervical Spine Active Testing Position Sitting ROM Limitations Soft Tissue Tightness Comments approx 75% Shoulder Goniometric Range of Motion Shoulder john Shoulder ROM WFL No Comments mild dec all motions Shoulder ROM Limitations Shoulder ROM Limitations Muscle Weakness Elbow/Forearm Range of Motion Elbow/Forearm john Elbow/Forearm ROM WFL Yes Wrist Goniometric Range of Motion Wrist john Wrist ROM WFL Yes Hip Goniometric Range of Motion Hip john Hip ROM WFL No Flexion w/Knee Flexed 90 Straight Leg Raise 65 Extension 0 Abduction 2 Internal Rotation 15 External Rotation 45 Hip ROM Limitations Hip ROM Limitations Soft Tissue Tightness,Muscle Weakness Knee Goniometric Range of Motion Knee john Knee ROM WFL Yes Ankle and Foot Goniometric Range of Motion Ankle and Foot john Dorsiflexion with Knee Flexed 5 Dorsiflexion with Knee Extended 0 Ankle and Foot ROM Limitations ROM Limitations Soft Tissue Tightness PT-OP-M Strength Start: 06/08/22 12:11 Freq: Status: Active Protocol: Document 06/09/22 09:49 [facility] (Rec: 06/14/22 17:24 [facility] [id number]) Cervical Spine Strength Cervical Spine Manual Muscle Testing Testing Position Sitting Flexion (C1-2) 4+ Good+ Extension 4+ Good+ Rotation Left 4+ Good+ Rotation Right 4+ Good+ Lateral Flexion Left (C3) 4+ Good+ Lateral Flexion Right (C3) 4+ Good+ Trunk Strength Trunk Manual Muscle Testing Flexion 3+ Fair+ Extension 3+ Fair+ Shoulder Strength Shoulder Manual Muscle Testing john Flexion 4 Good Extension 4 Good Abduction (C5) 4 Good External Rotation 4 Good Internal Rotation 4 Good Elbow/Forearm Strength Elbow and Forearm Manual Muscle Testing john Flexion (C6) 4+ Good+ Extension (C7) 4+ Good+ Hip Strength Hip Manual Muscle Testing john Flexion (L2) 4 Good Extension (S1) 3+ Fair+ Adduction 4 Good External Rotation 3+ Fair+ Internal Rotation 4 Good Knee Strength Knee Manual Muscle Testing john Flexion (S2) 4- Good- Extension (L3) 4- Good- Ankle/Foot Strength Ankle and Foot Manual Muscle Testing john Dorsiflexion (L4) 4 Good Plantarflexion (S1) 4 Good PT-OP-Q Treatments Start: 06/08/22 12:11 Freq: Status: Active Protocol: Document 08/11/22 09:52 SAK (Rec: 08/11/22 10:32 [facility] [id number]) Cardio Equipment Recumbent Stepper (Sci-Fit) Duration (Minutes) 8 Resistance 2.5 Seat Position 12 Other LE's only last 2 min Gym Equipment Shuttle Recovery Unilateral Squats Resistance 50 Reps/Time 10x2 Therapeutic Exercises Sitting Exercises HS stretch Side bilateral Reps/Minutes 2x30 Standing Exercises heel/toe raise Reps/Minutes 10x Gait Training Gait Activity stairs Description asc/descend Device Used 1 rail, 1 cane Level of Assistance CG Surface 6stairs Distance/Duration 5 stairs x 4 Treatment Focus receiprocal stepping, foot clearance, gluteal activation 2 SPC Device Used SPC x 2, SPC x 1 Level of Assistance CGA, Surface tile, carpet Distance/Duration 100 ft x 2 SPC x 2, 50 ft x 3 1 SPC Treatment Focus gait sequencing, safety, posturing, foot clearance Comments cued upright posture, gluteal activation SPC in LUE cues for sequencing and slower pacing to allow weaker RLE pushoff, and pt has good RUE arm swing. SPC in RUE has smoother sequencing but no LUE arm swing. fwd/bck/side Description walking, sidesteps Device Used parallel bars Level of Assistance CGA Treatment Focus dec support, safety, upright posture, inc foot clearance Comments cues for increased stride length and heelstrike to push- off, and glute facilitation. Sideways cues for neutral foot position. Neuro Re-Education Treatment Balance Activities obstacle course Details foam blue, hurdles, 4 box, 6 box, black foam, donaldson foam Reps/Duration 7x Comments 4 with 2 canes, 3 times with 1 cane PT-OP-T Assessment and Plan Start: 06/08/22 12:11 Freq: Status: Active Protocol: Document 08/11/22 09:52 [facility] (Rec: 08/11/22 10:32 [facility] [id number]) Physical Therapy Assessment Goals Four Impairment patient unable to golf due to weakness, gait and balance dysfunction Short Term Goal (STG) Patient to improve functional strength, gait, and balance sufficient to be able to put golf ball on tonja with CGA and hit ball with min assist for balance 08/09/22: goal met STG Duration 07/24/22 Intermediate Goal (LTG) Patient will improve his functional strength, gait, and balance to be able to play golf with supervision only LTG Duration 09/11/22 Three Impairment trunk and LE weakness Impairment requires use of UE's for all transfers Short Term Goal (STG) Patient to be instructed in HEP to support therapy activities in the clinic and demonstrate compliance 08/09/22: goal met STG Duration goal met Intermediate Goal (LTG) Improve patient's functional strength as evidenced by ability to transfer sit to stand from standard height chair without use of UE's x 10 LTG Duration 09/06/22 Two Impairment gait dysfunction Impairment uses 4WW, 3WW primarily, has to go up and down stairs sideways 6 min walk test with 3WW 681 ft Short Term Goal (STG) Patient will be able to safely ascend and descend stairs with alternating pattern and begin gait training with 2 canes on level surfaces 06/25/22: receiprical stepping BHR SBA x8 stairs, side stepping BUE on L HR (home patterning), 170 ft B canes SBA. 08/09/22: goal met STG Duration goal met Intermediate Goal (LTG) Patient will be able to ambulate on all usual surfaces safely with 1-2 canes and improve 6 min walk test to at least 1000 ft to improve ability to ambulate successfully in the community. LTG Duration 09/06/22 One Impairment balance dysfunction Impairment Lester Balance score 27/56 indicating high fall risk Short Term Goal (STG) Improve Lester balance score to at least 37/56 to decrease risk of falls 08/09/22: goal progress STG Duration 07/24/22 Personal Assistant Goal (LTG) Improve Lester Balance score to at least 45/56 to decrease risk of falls, allow for safe mobility in the home and community LTG Duration 09/06/22 Progress Towards Goals Progress Towards Goals Progressing Toward Goals Assessment Summary Assessment Patient walking with 2 canes instead of walker more at home . Mod cues required for postural alignment due to excess forward flexion. Most balance difficulty with turning, stepping up or onto uneven surface with right LE; with obstacle course required CGA to mod assist. Right LE weaker than right. Physical Therapy Plan Frequency and Duration Frequency of Treatment 2x/Week Duration of treatment (weeks) 12 Plan of Care Start Date 06/09/22 Plan of Care End Date 09/06/22 Therapeutic Interventions Therapeutic Interventions Balance Training,Gait Training ,Home Exercise Program,Manual Therapy,Neuromuscular Re- education,Patient/Caregiver Education,Self-Care/Home Management,Soft Tissue Mobilization,Therapeutic Activities,Therapeutic Exercises Next Visit Focus/Plan Next Note Type Treatment Note Next Visit Plan Continue PT, emphasis on gait training with canes, 1 cane, no cane, gait on uneven surfaces. Work on SLS, push- off phase of gait, gluteal strengthening, SLS. Consider floor transfer, supine Sly stretch.
--- NOTE | 2022-08-16 14:23 | PT.OTN ---
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) Physical Therapy Treatment Note PT-OP-A Visit Information Start: 06/08/22 12:11 Freq: Status: Active Protocol: Document 08/16/22 10:38 NBM (Rec: 08/16/22 11:22 NBM [id number]) Out-Patient Physical Therapy Visit Information Visit Information Visit Type Treatment Note Visit Start Time 10:38 Visit Stop Time 11:20 Total Visit Minutes 42 Visit Number 14 Number of PARTS DATA WRITER Visits 1 PT-OP-B Current Condition Start: 06/08/22 12:11 Freq: Status: Active Protocol: Document 06/16/22 10:30 SAK (Rec: 06/16/22 11:18 SAK [id number]) Current Condition History of Current Condition Onset Date 04/12/21 Current Complaints weakness, balance and gait difficulty History of Current Condition Fell while walking, fractured T34. Had fusion, 5 wks [facility], then at at [place] until July 23 2021. Was at [facility] until the end of January. Now at home on [facility], 2 story [place]y. Bedroom and bathroom on main floor. Uses 3WW, 4WW, has canes. Wants to wean off walker. Balance and fear of falling limit his mobility, has had a couple near falls since going home. Also has some nerve pain left ant and post chest. Was instructed in HEP, not doing theraband exercises. Is working on standing balance. Very little feeling in thighs, has some in lower legs and feet, the most feeling is in bottom of feet. On and off bowel and bladder issues. Prior Treatments and Tests 05/21/22: check-up at [place], all medical issues st able Treatment Goals Patient/Caregiver Goals play golf again, drive, walk without walker, in and out of car independent PT-OP-C Subjective Start: 06/08/22 12:11 Freq: Status: Active Protocol: Document 08/16/22 10:38 NBM (Rec: 08/16/22 11:22 NBM [id number]) OP-PT Subjective Patient Comments Patient Comments Pt reports he hasn't been able to do much walking and is trying to do his balance ex's. Chirag reports he is mostly using the walker at home, unless someone is with him he uses two canes. I feel pretty comfortable with the two canes but if something happened I'd be a mess. Pt reports he deveoped bursitis on L elbow a couple of days ago - he googled it to determine the fluid is bursitis. PT-OP-D Balance Start: 06/08/22 12:11 Freq: Status: Active Protocol: Document 06/09/22 09:49 [facility] (Rec: 06/14/22 17:24 [facility] [id number]) OP-PT Balance Assessment Sitting Balance Static Sitting Balance Ability Normal Dynamic Sitting Balance Ability Normal Standing Balance Static Standing Balance Ability Fair Dynamic Standing Balance Ability Poor Lester Balance Assessment Evaluation Sitting to Standing Ability Independent w/Hands Unsupported Stance Supervision- 2 minutes Sitting Unsupported, Feet on Floor Safely- 2 minutes Standing to Sitting Ability Assist, Use Legs on Chair Transfer Ability Safely, Hand Use Unsupported Stance- Eyes Closed Supervision, 10 seconds Unsupported Stance- Eyes Open Supervision to maintain Reaching Forward Standing Safely, 5 inches Pick- Up Object From Floor Requires Supervision Look Behind Shoulder - Standing Turns Sideways Only Turning 360 Degrees Requires Assistance Unsupported Stance, Alternating Feet on Assist to Prevent Fall Stair Unsupported Tandem Stance Balance Lost- Step/Stand Unilateral Leg Stance Unable,assist to not fall Total Score Lester Total Score (out of 56 points) 27 Cadet Fall Scale Copyright Permission PT-OP-E Functional Tests Start: 06/08/22 12:11 Freq: Status: Active Protocol: Document 06/09/22 09:49 [facility] (Rec: 06/14/22 17:24 [facility] [id number]) Functional Tests Timed Up and Go (TUG) Score 22 sec Comments 4WW PT-OP-G Mobility & Gait Start: 06/08/22 12:11 Freq: Status: Active Protocol: Document 06/09/22 09:49 [facility] (Rec: 06/14/22 17:24 [facility] [id number]) OP Mobility Evaluation Bed Mobility Rolling indep Supine to and from Sit indep OP Gait Assessment Gait Gait Assistance Required: Independent Assistive Devices Assistive Device 4 Wheeled Walker Orthotic/Prosthetic Devices or Brace: No Gait Deviations General Gait Pattern Ataxic,Decreased Stride Length ,Decreased Feet Clearance, Flexed Trunk,Wide Based Gait Factors Limiting Gait Function Factors Limiting Gait Function Abnormal Tonal Influences, Decreased Sensation,Decreased Strength,Poor Balance Stair Climbing Evaluation Technique/Endurance Stair Climbing Direction Ascend and Descend Comments Stair Climbing Comments sideways holding railing PT-OP-H Neuro Start: 06/08/22 12:11 Freq: Status: Active Protocol: Document 06/09/22 09:49 [facility] (Rec: 06/14/22 17:24 [facility] [id number]) Sensation Evaluation Gross Sensation Gross Sensation Left LE Impaired,Right LE Impaired Sensation Description Numbness PT-OP-J Posture/Palpation/Skin Start: 06/08/22 12:11 Freq: Status: Active Protocol: Document 06/09/22 09:49 [facility] (Rec: 06/14/22 17:24 [facility] [id number]) Posture Evaluation Position Standing Head/C-Spine Posture Forward Head T-Spine Posture Increased Kyphosis L-Spine Posture Flattened Skin Assessment Incisional Assessment Incision Appearance/Comments well-healed, decreased scar mobility PT-OP-K Range of Motion Start: 06/08/22 12:11 Freq: Status: Active Protocol: Document 06/09/22 09:49 [facility] (Rec: 06/14/22 17:24 [facility] [id number]) Cervical Spine Range of Motion Cervical Spine Active Testing Position Sitting ROM Limitations Soft Tissue Tightness Comments approx 75% Shoulder Goniometric Range of Motion Shoulder john Shoulder ROM WFL No Comments mild dec all motions Shoulder ROM Limitations Shoulder ROM Limitations Muscle Weakness Elbow/Forearm Range of Motion Elbow/Forearm john Elbow/Forearm ROM WFL Yes Wrist Goniometric Range of Motion Wrist john Wrist ROM WFL Yes Hip Goniometric Range of Motion Hip john Hip ROM WFL No Flexion w/Knee Flexed 90 Straight Leg Raise 65 Extension 0 Abduction 2 Internal Rotation 15 External Rotation 45 Hip ROM Limitations Hip ROM Limitations Soft Tissue Tightness,Muscle Weakness Knee Goniometric Range of Motion Knee john Knee ROM WFL Yes Ankle and Foot Goniometric Range of Motion Ankle and Foot john Dorsiflexion with Knee Flexed 5 Dorsiflexion with Knee Extended 0 Ankle and Foot ROM Limitations ROM Limitations Soft Tissue Tightness PT-OP-M Strength Start: 06/08/22 12:11 Freq: Status: Active Protocol: Document 06/09/22 09:49 [facility] (Rec: 06/14/22 17:24 [facility] [id number]) Cervical Spine Strength Cervical Spine Manual Muscle Testing Testing Position Sitting Flexion (C1-2) 4+ Good+ Extension 4+ Good+ Rotation Left 4+ Good+ Rotation Right 4+ Good+ Lateral Flexion Left (C3) 4+ Good+ Lateral Flexion Right (C3) 4+ Good+ Trunk Strength Trunk Manual Muscle Testing Flexion 3+ Fair+ Extension 3+ Fair+ Shoulder Strength Shoulder Manual Muscle Testing john Flexion 4 Good Extension 4 Good Abduction (C5) 4 Good External Rotation 4 Good Internal Rotation 4 Good Elbow/Forearm Strength Elbow and Forearm Manual Muscle Testing john Flexion (C6) 4+ Good+ Extension (C7) 4+ Good+ Hip Strength Hip Manual Muscle Testing john Flexion (L2) 4 Good Extension (S1) 3+ Fair+ Adduction 4 Good External Rotation 3+ Fair+ Internal Rotation 4 Good Knee Strength Knee Manual Muscle Testing john Flexion (S2) 4- Good- Extension (L3) 4- Good- Ankle/Foot Strength Ankle and Foot Manual Muscle Testing john Dorsiflexion (L4) 4 Good Plantarflexion (S1) 4 Good PT-OP-Q Treatments Start: 06/08/22 12:11 Freq: Status: Active Protocol: Document 08/16/22 10:38 NB (Rec: 08/16/22 11:22 [facility] [id number]) Cardio Equipment Recumbent Stepper (Sci-Fit) Duration (Minutes) 8 Resistance 2.5 Seat Position 12 Other LE's only Gym Equipment Shuttle Recovery Unilateral Squats Details john Resistance 50 Reps/Time 10x2 Bilateral Squats Resistance 62>75 Shuttle Recovery Platform Stable Reps/Time 10x62#, 10x75# Therapeutic Exercises Sitting Exercises STS Sitting Exercise Name blue foam added after 8 reps Equipment Used mesh chair, thigh support ascend, no UE support desc but plops last 3; Reps/Minutes 10x Comments cue slow, eccentric control, glute squeeze Standing Exercises doorway pec stretch Side bilateral Equipment Used doorway, SPC Reps/Minutes x20s ea Comments one side at a time w/ SPC in contralateral UE heel/toe raise Reps/Minutes 10x Comments cues for slow eccentric Gait Training Gait Activity stairs Description asc/descend Device Used 1 rail, 1 cane Level of Assistance CGA Surface 6stairs Distance/Duration 5 stairs x 5 Treatment Focus recip stepping, glute activation, sequencing and upright post w/ descent 2 SPC Device Used SPC x 2 Level of Assistance CGA, Surface tile, carpet Distance/Duration 100 ft x 2 SPC x 2 Treatment Focus gait sequencing, safety, posturing, foot clearance Comments cued upright posture, gluteal activation, distant focal point SPC in LUE cues for sequencing and slower pacing to allow weaker RLE pushoff, and pt has good RUE arm swing. PT-OP-T Assessment and Plan Start: 06/08/22 12:11 Freq: Status: Active Protocol: Document 08/16/22 10:38 NB (Rec: 08/16/22 11:22 [facility] [id number]) Physical Therapy Assessment Impairments Impairments Balance,Coordination, Functional Mobility,Gait, Strength,Transfers Goals Four Impairment patient unable to golf due to weakness, gait and balance dysfunction Short Term Goal (STG) Patient to improve functional strength, gait, and balance sufficient to be able to put golf ball on tonja with CGA and hit ball with min assist for balance 08/09/22: goal met STG Duration 07/24/22 Shredding Machine Tender Goal (LTG) Patient will improve his functional strength, gait, and balance to be able to play golf with supervision only LTG Duration 09/11/22 Three Impairment trunk and LE weakness Impairment requires use of UE's for all transfers Short Term Goal (STG) Patient to be instructed in HEP to support therapy activities in the clinic and demonstrate compliance 08/09/22: goal met STG Duration goal met Custodial Goal (LTG) Improve patient's functional strength as evidenced by ability to transfer sit to stand from standard height chair without use of UE's x 10 08/16/22: Pt completes 8 reps from mesh chair w/ thigh support Jay and cues for scooting to edge of chair, anterior weightshifting and glute activation; vc for controlled descent. Blue foam added and pt can perform x10 without UE support, cues for controlled descent last inch. LTG Duration 09/06/22 Two Impairment gait dysfunction Impairment uses 4WW, 3WW primarily, has to go up and down stairs sideways 6 min walk test with 3WW 681 ft Short Term Goal (STG) Patient will be able to safely ascend and descend stairs with alternating pattern and begin gait training with 2 canes on level surfaces 06/25/22: receiprical stepping BHR SBA x8 stairs, side stepping BUE on L HR (home patterning), 170 ft B canes SBA. 08/09/22: goal met STG Duration goal met Custodial Goal (LTG) Patient will be able to ambulate on all usual surfaces safely with 1-2 canes and improve 6 min walk test to at least 1000 ft to improve ability to ambulate successfully in the community. LTG Duration 09/06/22 Assessment Summary Assessment Pt tolerates increased resistance with bilateral squats up to 10 reps at 62# followed by 10 reps at 75# today on shuttle recovery. He requires moderate cues for upright posture w/ ambulation w/ two canes and for descending stairs w/ one cane LUE and one railing RUE (home patterning). RLE weakness greater than LLE and he requires cues for slower LUE arm swing to allow RLE push- off with gait. LTG Three: Pt completes 8 reps from mesh chair w/ thigh support Jay and cues for scooting to edge of chair, anterior weightshifting and glute activation; vc for controlled descent. Blue foam added and pt can perform x10 without UE support, cues for controlled descent last inch. Physical Therapy Plan Frequency and Duration Frequency of Treatment 2x/Week Duration of treatment (weeks) 12 Plan of Care Start Date 06/09/22 Plan of Care End Date 09/06/22 Therapeutic Interventions Therapeutic Interventions Balance Training,Gait Training ,Home Exercise Program,Manual Therapy,Neuromuscular Re- education,Patient/Caregiver Education,Self-Care/Home Management,Soft Tissue Mobilization,Therapeutic Activities,Therapeutic Exercises Next Visit Focus/Plan Next Note Type Treatment Note Next Visit Plan Continue PT, emphasis on gait training with canes, 1 cane, no cane, gait on uneven surfaces. Work on SLS, push- off phase of gait, gluteal strengthening, SLS. Consider floor transfer, supine Sly stretch, supine pec stretch.
--- NOTE | 2022-08-26 07:53 | PT-OP ANOTE ---
cancelled due to transportation issues
--- NOTE | 2022-08-30 11:13 | PT.OTN ---
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) Physical Therapy Treatment Note PT-OP-A Visit Information Start: 06/08/22 12:11 Freq: Status: Active Protocol: Document 08/30/22 10:12 NBM (Rec: 08/30/22 11:08 NBM [id number]) Out-Patient Physical Therapy Visit Information Visit Information Visit Type Treatment Note Visit Start Time 10:10 Visit Stop Time 10:49 Total Visit Minutes 39 Visit Number 15 Number of COSMETICS DEMONSTRATOR Visits 2 Evaluation Information Evaluation Date 06/09/22 Precautions Precautions high fall risk PT-OP-B Current Condition Start: 06/08/22 12:11 Freq: Status: Active Protocol: Document 06/16/22 10:30 SAK (Rec: 06/16/22 11:18 SAK [id number]) Current Condition History of Current Condition Onset Date 04/12/21 Current Complaints weakness, balance and gait difficulty History of Current Condition Fell while walking, fractured T34. Had fusion, 5 wks [facility], then at at [place] until July 23 2021. Was at [facility] until the end of January. Now at home on [facility], [address] [place] [id number]. Bedroom and bathroom on main floor. Uses 3WW, 4WW, has canes. Wants to wean off walker. Balance and fear of falling limit his mobility, has had a couple near falls since going home. Also has some nerve pain left ant and post chest. Was instructed in HEP, not doing theraband exercises. Is working on standing balance. Very little feeling in thighs, has some in lower legs and feet, the most feeling is in bottom of feet. On and off bowel and bladder issues. Prior Treatments and Tests 05/21/22: check-up at [place], all medical issues st able Treatment Goals Patient/Caregiver Goals play golf again, drive, walk without walker, in and out of car independent PT-OP-C Subjective Start: 06/08/22 12:11 Freq: Status: Active Protocol: Document 08/30/22 10:12 VINCENTM (Rec: 08/30/22 11:08 VINCENTM [id number]) OP-PT Subjective Patient Comments Patient Comments Pt states he has a dental appt after. It's difficult to walk much at home [place]. PT-OP-D Balance Start: 06/08/22 12:11 Freq: Status: Active Protocol: Document 06/09/22 09:49 [facility] (Rec: 06/14/22 17:24 [facility] [id number]) OP-PT Balance Assessment Sitting Balance Static Sitting Balance Ability Normal Dynamic Sitting Balance Ability Normal Standing Balance Static Standing Balance Ability Fair Dynamic Standing Balance Ability Poor Lester Balance Assessment Evaluation Sitting to Standing Ability Independent w/Hands Unsupported Stance Supervision- 2 minutes Sitting Unsupported, Feet on Floor Safely- 2 minutes Standing to Sitting Ability Assist, Use Legs on Chair Transfer Ability Safely, Hand Use Unsupported Stance- Eyes Closed Supervision, 10 seconds Unsupported Stance- Eyes Open Supervision to maintain Reaching Forward Standing Safely, 5 inches Pick- Up Object From Floor Requires Supervision Look Behind Shoulder - Standing Turns Sideways Only Turning 360 Degrees Requires Assistance Unsupported Stance, Alternating Feet on Assist to Prevent Fall Stair Unsupported Tandem Stance Balance Lost- Step/Stand Unilateral Leg Stance Unable,assist to not fall Total Score Lester Total Score (out of 56 points) 27 Cadet Fall Scale Copyright Permission PT-OP-E Functional Tests Start: 06/08/22 12:11 Freq: Status: Active Protocol: Document 06/09/22 09:49 [facility] (Rec: 06/14/22 17:24 [facility] [id number]) Functional Tests Timed Up and Go (TUG) Score 22 sec Comments 4WW PT-OP-G Mobility & Gait Start: 06/08/22 12:11 Freq: Status: Active Protocol: Document 06/09/22 09:49 [facility] (Rec: 06/14/22 17:24 [facility] [id number]) OP Mobility Evaluation Bed Mobility Rolling indep Supine to and from Sit indep OP Gait Assessment Gait Gait Assistance Required: Independent Assistive Devices Assistive Device 4 Wheeled Walker Orthotic/Prosthetic Devices or Brace: No Gait Deviations General Gait Pattern Ataxic,Decreased Stride Length ,Decreased Feet Clearance, Flexed Trunk,Wide Based Gait Factors Limiting Gait Function Factors Limiting Gait Function Abnormal Tonal Influences, Decreased Sensation,Decreased Strength,Poor Balance Stair Climbing Evaluation Technique/Endurance Stair Climbing Direction Ascend and Descend Comments Stair Climbing Comments sideways holding railing PT-OP-H Neuro Start: 06/08/22 12:11 Freq: Status: Active Protocol: Document 06/09/22 09:49 [facility] (Rec: 06/14/22 17:24 [facility] [id number]) Sensation Evaluation Gross Sensation Gross Sensation Left LE Impaired,Right LE Impaired Sensation Description Numbness PT-OP-J Posture/Palpation/Skin Start: 06/08/22 12:11 Freq: Status: Active Protocol: Document 06/09/22 09:49 [facility] (Rec: 06/14/22 17:24 [facility] [id number]) Posture Evaluation Position Standing Head/C-Spine Posture Forward Head T-Spine Posture Increased Kyphosis L-Spine Posture Flattened Skin Assessment Incisional Assessment Incision Appearance/Comments well-healed, decreased scar mobility PT-OP-K Range of Motion Start: 06/08/22 12:11 Freq: Status: Active Protocol: Document 06/09/22 09:49 [facility] (Rec: 06/14/22 17:24 [facility] [id number]) Cervical Spine Range of Motion Cervical Spine Active Testing Position Sitting ROM Limitations Soft Tissue Tightness Comments approx 75% Shoulder Goniometric Range of Motion Shoulder john Shoulder ROM WFL No Comments mild dec all motions Shoulder ROM Limitations Shoulder ROM Limitations Muscle Weakness Elbow/Forearm Range of Motion Elbow/Forearm john Elbow/Forearm ROM WFL Yes Wrist Goniometric Range of Motion Wrist john Wrist ROM WFL Yes Hip Goniometric Range of Motion Hip john Hip ROM WFL No Flexion w/Knee Flexed 90 Straight Leg Raise 65 Extension 0 Abduction 2 Internal Rotation 15 External Rotation 45 Hip ROM Limitations Hip ROM Limitations Soft Tissue Tightness,Muscle Weakness Knee Goniometric Range of Motion Knee john Knee ROM WFL Yes Ankle and Foot Goniometric Range of Motion Ankle and Foot john Dorsiflexion with Knee Flexed 5 Dorsiflexion with Knee Extended 0 Ankle and Foot ROM Limitations ROM Limitations Soft Tissue Tightness PT-OP-M Strength Start: 06/08/22 12:11 Freq: Status: Active Protocol: Document 06/09/22 09:49 [facility] (Rec: 06/14/22 17:24 [facility] [id number]) Cervical Spine Strength Cervical Spine Manual Muscle Testing Testing Position Sitting Flexion (C1-2) 4+ Good+ Extension 4+ Good+ Rotation Left 4+ Good+ Rotation Right 4+ Good+ Lateral Flexion Left (C3) 4+ Good+ Lateral Flexion Right (C3) 4+ Good+ Trunk Strength Trunk Manual Muscle Testing Flexion 3+ Fair+ Extension 3+ Fair+ Shoulder Strength Shoulder Manual Muscle Testing john Flexion 4 Good Extension 4 Good Abduction (C5) 4 Good External Rotation 4 Good Internal Rotation 4 Good Elbow/Forearm Strength Elbow and Forearm Manual Muscle Testing john Flexion (C6) 4+ Good+ Extension (C7) 4+ Good+ Hip Strength Hip Manual Muscle Testing john Flexion (L2) 4 Good Extension (S1) 3+ Fair+ Adduction 4 Good External Rotation 3+ Fair+ Internal Rotation 4 Good Knee Strength Knee Manual Muscle Testing john Flexion (S2) 4- Good- Extension (L3) 4- Good- Ankle/Foot Strength Ankle and Foot Manual Muscle Testing john Dorsiflexion (L4) 4 Good Plantarflexion (S1) 4 Good PT-OP-Q Treatments Start: 06/08/22 12:11 Freq: Status: Active Protocol: Document 08/30/22 10:12 NB (Rec: 08/30/22 11:08 [facility] [id number]) Cardio Equipment Recumbent Stepper (Sci-Fit) Duration (Minutes) 5 Resistance 2.5 Seat Position 12 Other LE's only - pt reports good challenge Gym Equipment Shuttle Recovery heel raises Details john Resistance 50# Reps/Time 2x10 Unilateral Squats Details john Resistance 50 Reps/Time 10x2 ea Bilateral Squats Resistance 75 Shuttle Recovery Platform Stable Reps/Time 10x75#, 10x75# w/ball squeeze Shuttle Balance chains red Details bal and wt shift fwd/bck Comments a/p weightshifting, balance EO /EC: WBOS, staggered stance john Therapeutic Exercises Supine Exercises hamstring stretch Supine Exercise Name on shuttle recovery Side bilateral Reps/Minutes x30 ea Comments palpable tightness piriformis stretch Supine Exercise Name knee to opp deidra on shuttle recovery Side bilateral Reps/Minutes x30 ea Comments Fig 4 attempted - unable. Gait Training Gait Activity 2 SPC Device Used SPC x 2 Level of Assistance CGA Surface tile, carpet Distance/Duration ~3000 ft x 2 SPC Treatment Focus gait sequencing, safety, posturing Comments cued upright posture w/ distant focual point, gluteal activation, heel strike, increase push-off through R hallux to decrease excessive supination. PT-OP-T Assessment and Plan Start: 06/08/22 12:11 Freq: Status: Active Protocol: Document 08/30/22 10:12 NBM (Rec: 08/30/22 11:08 [facility] [id number]) Physical Therapy Assessment Impairments Impairments Balance,Coordination, Functional Mobility,Gait, Strength,Transfers Goals Four Impairment patient unable to golf due to weakness, gait and balance dysfunction Short Term Goal (STG) Patient to improve functional strength, gait, and balance sufficient to be able to put golf ball on tonja with CGA and hit ball with min assist for balance 08/09/22: goal met STG Duration 07/24/22 Sex Crimes Detective Goal (LTG) Patient will improve his functional strength, gait, and balance to be able to play golf with supervision only LTG Duration 09/11/22 Three Impairment trunk and LE weakness Impairment requires use of UE's for all transfers Short Term Goal (STG) Patient to be instructed in HEP to support therapy activities in the clinic and demonstrate compliance 08/09/22: goal met STG Duration goal met Sex Crimes Detective Goal (LTG) Improve patient's functional strength as evidenced by ability to transfer sit to stand from standard height chair without use of UE's x 10 08/16/22: Pt completes 8 reps from mesh chair w/ thigh support Jay and cues for scooting to edge of chair, anterior weightshifting and glute activation; vc for controlled descent. Blue foam added and pt can perform x10 without UE support, cues for controlled descent last inch. LTG Duration 09/06/22 Two Impairment gait dysfunction Impairment uses 4WW, 3WW primarily, has to go up and down stairs sideways 6 min walk test with 3WW 681 ft Short Term Goal (STG) Patient will be able to safely ascend and descend stairs with alternating pattern and begin gait training with 2 canes on level surfaces 06/25/22: receiprical stepping BHR SBA x8 stairs, side stepping BUE on L HR (home patterning), 170 ft B canes SBA. 08/09/22: goal met STG Duration goal met Sex Crimes Detective Goal (LTG) Patient will be able to ambulate on all usual surfaces safely with 1-2 canes and improve 6 min walk test to at least 1000 ft to improve ability to ambulate successfully in the community. LTG Duration 09/06/22 One Impairment balance dysfunction Impairment Lester Balance score 27/56 indicating high fall risk Short Term Goal (STG) Improve Lester balance score to at least 37/56 to decrease risk of falls 08/09/22: goal progress STG Duration 4/1/23 Sex Crimes Detective Goal (LTG) Improve Lester Balance score to at least 45/56 to decrease risk of falls, allow for safe mobility in the home and community LTG Duration 09/06/22 Assessment Summary Assessment Chirag requires cues for LE alignment for john squats w/ shuttle recovery which improves w/ hip adduction ball squeeze. When ambulating w/ SPC x2 pt is cued for upright posture w/ distant focal point , gluteal activation, heel strike, and increased push-off through R hallux to decrease excessive supination. He completed ~290ft without rest break but decreased RLE stance with fatigue. Pt demonstrates improved step length and upright posture w/ gluteal activation w/ 2 SPC and then 3WW end of treatment session. Physical Therapy Plan Frequency and Duration Frequency of Treatment 2x/Week Duration of treatment (weeks) 12 Plan of Care Start Date 06/09/22 Plan of Care End Date 09/06/22 Therapeutic Interventions Therapeutic Interventions Balance Training,Gait Training ,Home Exercise Program,Manual Therapy,Neuromuscular Re- education,Patient/Caregiver Education,Self-Care/Home Management,Soft Tissue Mobilization,Therapeutic Activities,Therapeutic Exercises Next Visit Focus/Plan Next Note Type Treatment Note Next Visit Plan Conider resisted ankle everter strengthening (R>L). POC: Continue PT, emphasis on gait training with canes, 1 cane, no cane, gait on uneven surfaces. Work on SLS, push- off phase of gait, gluteal strengthening, SLS. Consider floor transfer, supine Sly stretch, supine pec stretch.
--- NOTE | 2022-09-01 12:57 | PT-OP ANOTE ---
DNS; front office staff called patient to try to get him in at different time; he reports no transportation today
--- NOTE | 2022-09-01 13:07 | PT.OTRE ---
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) Past Medical History (Last Updated 11/19/21 @ 12:04 by Mariusz Hernandez MD) Asthma (~1962) Borderline diabetes BPH w urinary obs/LUTS Chronic renal failure, stage 3a Hypertension (~1979) Hypogonadism male Peripheral neuropathy Sleep apnea (~1998) Spinal cord injury Uses walker Uses wheelchair Surgical History (Last Updated 11/19/21 @ 12:04 by Mariusz Hernandez MD) Anesthesia Status post laminectomy (04/14/21) Visit Care Team Role Provider Type Júnior Choi Rai, DO Non-Staff Specialty: Family Practice Address: [address] [place] [address], [address] Email: Mariusz Hernandez MD Primary Care Provider Physician Specialty: Internal Medicine Address: [address] [place] [address], [address], [address] Email: [email or web address] Provider Specialty: Address: Phone: Fax: Email: Adrienne Smith MD Attending Provider Non-Staff Referring Provider Specialty: Physical Medicine and Rehab Address: [address] [place] [address], [address] Email: Physical Therapy Re-Evaluation PT-OP-A Visit Information Start: 06/08/22 12:11 Freq: Status: Active Protocol: Document 09/01/22 12:56 [facility] (Rec: 09/01/22 12:57 [facility] [id number]) Out-Patient Physical Therapy Visit Information Visit Information Visit Type Re-Evaluation Visit Note DNS; called patient, he reported no transportation Evaluation Information Evaluation Date 06/09/22 Precautions Precautions high fall risk PT-OP-B Current Condition Start: 06/08/22 12:11 Freq: Status: Active Protocol: Document 06/16/22 10:30 SAK (Rec: 06/16/22 11:18 [facility]AK [id number]) Current Condition History of Current Condition Onset Date 04/12/21 Current Complaints weakness, balance and gait difficulty History of Current Condition Fell while walking, fractured T34. Had fusion, [address] [facility], then at at [place] until July 23 2021. Was at [facility] until the end of January. [place], 2 story house. Bedroom and bathroom on main floor. Uses 3WW, 4WW, has canes. Wants to wean off walker. Balance and fear of falling limit his mobility, has had a couple near falls since going home. Also has some nerve pain left ant and post chest. Was instructed in HEP, not doing theraband exercises. Is working on standing balance. Very little feeling in thighs, has some in lower legs and feet, the most feeling is in bottom of feet. On and off bowel and bladder issues. Prior Treatments and Tests 05/21/22: check-up at [place], all medical issues st able Treatment Goals Patient/Caregiver Goals play golf again, drive, walk without walker, in and out of car independent PT-OP-C Subjective Start: 06/08/22 12:11 Freq: Status: Active Protocol: Document 08/30/22 10:12 NBM (Rec: 08/30/22 11:08 NB [id number]) OP-PT Subjective Patient Comments Patient Comments Pt states he has a dental appt after. It's difficult to walk much at home because of an incline on his property. PT-OP-D Balance Start: 06/08/22 12:11 Freq: Status: Active Protocol: Document 06/09/22 09:49 SAK (Rec: 06/14/22 17:24 SAK [id number]) OP-PT Balance Assessment Sitting Balance Static Sitting Balance Ability Normal Dynamic Sitting Balance Ability Normal Standing Balance Static Standing Balance Ability Fair Dynamic Standing Balance Ability Poor Lester Balance Assessment Evaluation Sitting to Standing Ability Independent w/Hands Unsupported Stance Supervision- 2 minutes Sitting Unsupported, Feet on Floor Safely- 2 minutes Standing to Sitting Ability Assist, Use Legs on Chair Transfer Ability Safely, Hand Use Unsupported Stance- Eyes Closed Supervision, 10 seconds Unsupported Stance- Eyes Open Supervision to maintain Reaching Forward Standing Safely, 5 inches Pick- Up Object From Floor Requires Supervision Look Behind Shoulder - Standing Turns Sideways Only Turning 360 Degrees Requires Assistance Unsupported Stance, Alternating Feet on Assist to Prevent Fall Stair Unsupported Tandem Stance Balance Lost- Step/Stand Unilateral Leg Stance Unable,assist to not fall Total Score Lester Total Score (out of 56 points) 27 Cadet Fall Scale Copyright Permission Chichi JM, Chichi RM, Katie SJ. Development of a scale to identify the fall- prone patient. Can J Aging 1989;8;366-7. Petra Cadet (2009). Preventing patient falls. (2nd ed). [place]: Singh. PT-OP-E Functional Tests Start: 06/08/22 12:11 Freq: Status: Active Protocol: Document 06/09/22 09:49 [facility] (Rec: 06/14/22 17:24 [facility] [id number]) Functional Tests Timed Up and Go (TUG) Score 22 sec Comments 4WW PT-OP-G Mobility & Gait Start: 06/08/22 12:11 Freq: Status: Active Protocol: Document 06/09/22 09:49 [facility] (Rec: 06/14/22 17:24 [facility] [id number]) OP Mobility Evaluation Bed Mobility Rolling indep Supine to and from Sit indep OP Gait Assessment Gait Gait Assistance Required: Independent Assistive Devices Assistive Device 4 Wheeled Walker Orthotic/Prosthetic Devices or Brace: No Gait Deviations General Gait Pattern Ataxic,Decreased Stride Length ,Decreased Feet Clearance, Flexed Trunk,Wide Based Gait Factors Limiting Gait Function Factors Limiting Gait Function Abnormal Tonal Influences, Decreased Sensation,Decreased Strength,Poor Balance Stair Climbing Evaluation Technique/Endurance Stair Climbing Direction Ascend and Descend Comments Stair Climbing Comments sideways holding railing PT-OP-H Neuro Start: 06/08/22 12:11 Freq: Status: Active Protocol: Document 06/09/22 09:49 [facility] (Rec: 06/14/22 17:24 [facility] [id number]) Sensation Evaluation Gross Sensation Gross Sensation Left LE Impaired,Right LE Impaired Sensation Description Numbness PT-OP-J Posture/Palpation/Skin Start: 06/08/22 12:11 Freq: Status: Active Protocol: Document 06/09/22 09:49 [facility] (Rec: 06/14/22 17:24 [facility] [id number]) Posture Evaluation Position Standing Head/C-Spine Posture Forward Head T-Spine Posture Increased Kyphosis L-Spine Posture Flattened Skin Assessment Incisional Assessment Incision Appearance/Comments well-healed, decreased scar mobility PT-OP-K Range of Motion Start: 06/08/22 12:11 Freq: Status: Active Protocol: Document 06/09/22 09:49 [facility] (Rec: 06/14/22 17:24 [facility] [id number]) Cervical Spine Range of Motion Cervical Spine Active Testing Position Sitting ROM Limitations Soft Tissue Tightness Comments approx 75% Shoulder Goniometric Range of Motion Shoulder Measured in Degrees john Shoulder ROM WFL No Comments mild dec all motions Shoulder ROM Limitations Shoulder ROM Limitations Muscle Weakness Elbow/Forearm Range of Motion Elbow/Forearm Measured in Degrees john Elbow/Forearm ROM WFL Yes Wrist Goniometric Range of Motion Wrist Measured in Degrees john Wrist ROM WFL Yes Hip Goniometric Range of Motion Hip Measured in Degrees john Hip ROM WFL No Flexion w/Knee Flexed 90 Straight Leg Raise 65 Extension 0 Abduction 2 Internal Rotation 15 External Rotation 45 Hip ROM Limitations Hip ROM Limitations Soft Tissue Tightness,Muscle Weakness Knee Goniometric Range of Motion Knee Measured in Degrees john Knee ROM WFL Yes Ankle and Foot Goniometric Range of Motion Ankle and Foot Measured in Degrees john Dorsiflexion with Knee Flexed 5 Dorsiflexion with Knee Extended 0 Ankle and Foot ROM Limitations ROM Limitations Soft Tissue Tightness PT-OP-M Strength Start: 06/08/22 12:11 Freq: Status: Active Protocol: Document 06/09/22 09:49 [facility] (Rec: 06/14/22 17:24 [facility] [id number]) Cervical Spine Strength Cervical Spine Manual Muscle Testing Testing Position Sitting Flexion (C1-2) 4+ Good+ Extension 4+ Good+ Rotation Left 4+ Good+ Rotation Right 4+ Good+ Lateral Flexion Left (C3) 4+ Good+ Lateral Flexion Right (C3) 4+ Good+ Trunk Strength Trunk Manual Muscle Testing Flexion 3+ Fair+ Extension 3+ Fair+ Shoulder Strength Shoulder Manual Muscle Testing john Flexion 4 Good Extension 4 Good Abduction (C5) 4 Good External Rotation 4 Good Internal Rotation 4 Good Elbow/Forearm Strength Elbow and Forearm Manual Muscle Testing john Flexion (C6) 4+ Good+ Extension (C7) 4+ Good+ Hip Strength Hip Manual Muscle Testing john Flexion (L2) 4 Good Extension (S1) 3+ Fair+ Adduction 4 Good External Rotation 3+ Fair+ Internal Rotation 4 Good Knee Strength Knee Manual Muscle Testing john Flexion (S2) 4- Good- Extension (L3) 4- Good- Ankle/Foot Strength Ankle and Foot Manual Muscle Testing john Dorsiflexion (L4) 4 Good Plantarflexion (S1) 4 Good PT-OP-Q Treatments Start: 06/08/22 12:11 Freq: Status: Active Protocol: Document 08/30/22 10:12 NB (Rec: 08/30/22 11:08 NB [id number]) Cardio Equipment Recumbent Stepper (Sci-Fit) Duration (Minutes) 5 Resistance 2.5 Seat Position 12 Other LE's only - pt reports good challenge Gym Equipment Shuttle Recovery heel raises Details john Resistance 50# Reps/Time 2x10 Unilateral Squats Details john Resistance 50 Reps/Time 10x2 ea Bilateral Squats Resistance 75 Shuttle Recovery Platform Stable Reps/Time 10x75#, 10x75# w/ball squeeze Shuttle Balance chains red Details bal and wt shift fwd/bck Comments a/p weightshifting, balance EO /EC: WBOS, staggered stance john Therapeutic Exercises Supine Exercises hamstring stretch Supine Exercise Name on shuttle recovery Side bilateral Reps/Minutes x30 ea Comments palpable tightness piriformis stretch Supine Exercise Name knee to opp deidra on shuttle recovery Side bilateral Reps/Minutes x30 ea Comments Fig 4 attempted - unable. Gait Training Gait Activity 2 SPC Device Used SPC x 2 Level of Assistance CGA Surface tile, carpet Distance/Duration ~300 ft x 2 SPC Treatment Focus gait sequencing, safety, posturing Comments cued upright posture w/ distant focual point, gluteal activation, heel strike, increase push-off through R hallux to decrease excessive supination. PT-OP-T Assessment and Plan Start: 06/08/22 12:11 Freq: Status: Active Protocol: Document 09/01/22 12:56 [facility] (Rec: 09/01/22 13:07 [facility] [id number]) Physical Therapy Assessment Impairments Impairments Balance,Coordination, Functional Mobility,Gait, Strength,Transfers Goals Five Impairment flexibility Impairment Decreased LE flexibility impacting step and stride length Short Term Goal (STG) Patient to be instr in HEP for LE flexibility STG Duration 10/02/22 Snf Goal (LTG) Patient to be independent and compliant with above HEP and functionally demonstrate improved ROM for gait quality and safety LTG Duration 11/01/22 Four Impairment patient unable to golf due to weakness, gait and balance dysfunction Short Term Goal (STG) Patient to improve functional strength, gait, and balance sufficient to be able to put golf ball on tonja with CGA and hit ball with min assist for balance 08/09/22: goal met using UE support, much effort. STG Duration goal met Snf Goal (LTG) Patient will improve his functional strength, gait, and balance to be able to play golf with supervision only 09/01/22: goal progress, not met LTG Duration 11/11/22 Three Impairment trunk and LE weakness Impairment requires use of UE's for all transfers Short Term Goal (STG) Patient to be instructed in HEP to support therapy activities in the clinic and demonstrate compliance 08/09/22: goal met STG Duration goal met Draw Press Operator Goal (LTG) Improve patient's functional strength as evidenced by ability to transfer sit to stand from standard height chair without use of UE's x 10 08/16/22: Pt completes 8 reps from mesh chair w/ thigh support Jay and cues for scooting to edge of chair, anterior weightshifting and glute activation; vc for controlled descent. Blue foam added and pt can perform x10 without UE support, cues for controlled descent last inch. 09/01/22: good goal progress, not fully achieved LTG Duration 11/11/22 Two Impairment gait dysfunction Impairment uses 4WW, 3WW primarily, has to go up and down stairs sideways 6 min walk test with 3WW 681 ft Short Term Goal (STG) Patient will be able to safely ascend and descend stairs with alternating pattern and begin gait training with 2 canes on level surfaces 06/25/22: receiprical stepping BHR SBA x8 stairs, side stepping BUE on L HR (home patterning), 170 ft B canes SBA. 08/09/22: goal met STG Duration goal met Snf Goal (LTG) Patient will be able to ambulate on all usual surfaces safely with 1-2 canes and improve 6 min walk test to at least 1000 ft to improve ability to ambulate successfully in the community. 09/01/22: goal progress though not able to test 6 min walk test today due to patient not having transportation; will testnext session. Patient doesn't feel stable enough to ambulate outdoors at home with canes and lives alone LTG Duration 11/11/22 One Impairment balance dysfunction Impairment Lester Balance score 27/56 indicating high fall risk Short Term Goal (STG) Improve Lester balance score to at least 37/56 to decrease risk of falls 08/09/22: goal progress 09/01/22: not able to reassess today due to patient having no transportation. Is making functional progress STG Duration 10/02/22 Draw Press Operator Goal (LTG) Improve Lester Balance score to at least 45/56 to decrease risk of falls, allow for safe mobility in the home and community LTG Duration 11/01/22 Assessment Summary Assessment Patient is making progress toward goals, though limited by difficulty in doing some of home program due to living alone, having incline in yard, high risk for falls. Will benefit from further PT to help him continue to progress and improve his functional independence and safety. Physical Therapy Plan Frequency and Duration Frequency of Treatment 2x/Week Duration of treatment (weeks) 8 Plan of Care Start Date 09/01/22 Plan of Care End Date 11/01/22 Therapeutic Interventions Therapeutic Interventions Balance Training,Gait Training ,Home Exercise Program,Manual Therapy,Neuromuscular Re- education,Patient/Caregiver Education,Self-Care/Home Management,Soft Tissue Mobilization,Therapeutic Activities,Therapeutic Exercises Next Visit Focus/Plan Next Note Type Treatment Note Next Visit Plan Conider resisted ankle everter strengthening (R>L). POC: Continue PT, emphasis on gait training with canes, 1 cane, no cane, gait on uneven surfaces. Work on SLS, push- off phase of gait, gluteal strengthening, SLS. Consider floor transfer, supine Sly stretch, supine pec stretch.
--- NOTE | 2022-09-01 13:07 | PT.OPPOC ---
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) Visit Care Team Role Provider Type Júnior Choi Rai, DO Non-Staff Specialty: Family Practice Address: [address] [place] [address], [address] Email: Mariusz Hernandez MD Primary Care Provider Physician Specialty: Internal Medicine Address: [address] [place] [address], [address], [address] Email: [email or web address] Provider Specialty: Address: Phone: Fax: Email: Adrienne Smith MD Attending Provider Non-Staff Referring Provider Specialty: Physical Medicine and Rehab Address: [address] [place] [address], [address] Email: Plan Of Care PT-OP-T Assessment and Plan Start: 06/08/22 12:11 Freq: Status: Active Protocol: Document 09/01/22 12:56 [facility] (Rec: 09/01/22 13:07 SAK [id number]) Physical Therapy Assessment Impairments Impairments Balance,Coordination, Functional Mobility,Gait, Strength,Transfers Goals Five Impairment flexibility Impairment Decreased LE flexibility impacting step and stride length Short Term Goal (STG) Patient to be instr in HEP for LE flexibility STG Duration 10/02/22 Batter Depositor Goal (LTG) Patient to be independent and compliant with above HEP and functionally demonstrate improved ROM for gait quality and safety LTG Duration 11/01/22 Four Impairment patient unable to golf due to weakness, gait and balance dysfunction Short Term Goal (STG) Patient to improve functional strength, gait, and balance sufficient to be able to put golf ball on tonja with CGA and hit ball with min assist for balance 08/09/22: goal met using UE support, much effort. STG Duration goal met Batter Depositor Goal (LTG) Patient will improve his functional strength, gait, and balance to be able to play golf with supervision only 09/01/22: goal progress, not met LTG Duration 11/11/22 Three Impairment trunk and LE weakness Impairment requires use of UE's for all transfers Short Term Goal (STG) Patient to be instructed in HEP to support therapy activities in the clinic and demonstrate compliance 08/09/22: goal met STG Duration goal met Correction Goal (LTG) Improve patient's functional strength as evidenced by ability to transfer sit to stand from standard height chair without use of UE's x 10 08/16/22: Pt completes 8 reps from mesh chair w/ thigh support Jay and cues for scooting to edge of chair, anterior weightshifting and glute activation; vc for controlled descent. Blue foam added and pt can perform x10 without UE support, cues for controlled descent last inch. 09/01/22: good goal progress, not fully achieved LTG Duration 11/11/22 Two Impairment gait dysfunction Impairment uses 4WW, 3WW primarily, has to go up and down stairs sideways 6 min walk test with 3WW 681 ft Short Term Goal (STG) Patient will be able to safely ascend and descend stairs with alternating pattern and begin gait training with 2 canes on level surfaces 06/25/22: receiprical stepping BHR SBA x8 stairs, side stepping BUE on L HR (home patterning), 170 ft B canes SBA. 08/09/22: goal met STG Duration goal met Correction Goal (LTG) Patient will be able to ambulate on all usual surfaces safely with 1-2 canes and improve 6 min walk test to at least 1000 ft to improve ability to ambulate successfully in the community. 09/01/22: goal progress though not able to test 6 min walk test today due to patient not having transportation; will testnext session. Patient doesn't feel stable enough to ambulate outdoors at home with canes and lives alone LTG Duration 11/11/22 One Impairment balance dysfunction Impairment Lester Balance score 27/56 indicating high fall risk Short Term Goal (STG) Improve Lester balance score to at least 37/56 to decrease risk of falls 08/09/22: goal progress 09/01/22: not able to reassess today due to patient having no transportation. Is making functional progress STG Duration 10/02/22 Correction Goal (LTG) Improve Lester Balance score to at least 45/56 to decrease risk of falls, allow for safe mobility in the home and community LTG Duration 11/01/22 Assessment Summary Assessment Patient is making progress toward goals, though limited by difficulty in doing some of home program due to living alone, having incline in yard, high risk for falls. Will benefit from further PT to help him continue to progress and improve his functional independence and safety. Physical Therapy Plan Frequency and Duration Frequency of Treatment 2x/Week Duration of treatment (weeks) 8 Plan of Care Start Date 09/01/22 Plan of Care End Date 11/01/22 Therapeutic Interventions Therapeutic Interventions Balance Training,Gait Training ,Home Exercise Program,Manual Therapy,Neuromuscular Re- education,Patient/Caregiver Education,Self-Care/Home Management,Soft Tissue Mobilization,Therapeutic Activities,Therapeutic Exercises Next Visit Focus/Plan Next Note Type Treatment Note Next Visit Plan Conider resisted ankle everter strengthening (R>L). POC: Continue PT, emphasis on gait training with canes, 1 cane, no cane, gait on uneven surfaces. Work on SLS, push- off phase of gait, gluteal strengthening, SLS. Consider floor transfer, supine Sly stretch, supine pec stretch. Plan of Care Dates Plan of Care Start Date 09/01/22 Plan of Care End Date 11/01/22 Electronically Signed by: Natalie Zhang, PT 09/01/22 0888 If you are in agreement with this Plan of Care, please return a signed and dated copy. I have reviewed this Plan of Care and certify that the skilled therapy services above are required to meet the patient?s needs. Physician Signature Date Printed Name and Credentials Clinical Instructor Signature Printed Name and Credentials
--- NOTE | 2022-09-06 11:02 | PT.OTN ---
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) Physical Therapy Treatment Note PT-OP-A Visit Information Start: 06/08/22 12:11 Freq: Status: Active Protocol: Document 09/06/22 09:45 NBM (Rec: 09/06/22 10:59 NBM [id number]) Out-Patient Physical Therapy Visit Information Visit Information Visit Type Treatment Note Visit Start Time 09:45 Visit Stop Time 10:33 Total Visit Minutes 48 Visit Number 16 Number of BUSINESS ANALYSIS ANALYST Visits 3 Evaluation Information Evaluation Date 06/09/22 Precautions Precautions high fall risk PT-OP-B Current Condition Start: 06/08/22 12:11 Freq: Status: Active Protocol: Document 06/16/22 10:30 SAK (Rec: 06/16/22 11:18 SAK [id number]) Current Condition History of Current Condition Onset Date 04/12/21 Current Complaints weakness, balance and gait difficulty History of Current Condition Fell while walking, fractured T34. Had fusion, 5 wks [facility], then at at [place] until July 23 2021. Was at [facility] until the end of January. Now at home on [facility] [address], [address] [place] [address]. Bedroom and bathroom on main floor. Uses 3WW, 4WW, has canes. Wants to wean off walker. Balance and fear of falling limit his mobility, has had a couple near falls since going home. Also has some nerve pain left ant and post chest. Was instructed in HEP, not doing theraband exercises. Is working on standing balance. Very little feeling in thighs, has some in lower legs and feet, the most feeling is in bottom of feet. On and off bowel and bladder issues. Prior Treatments and Tests 05/21/22: check-up at [place], all medical issues st able Treatment Goals Patient/Caregiver Goals play golf again, drive, walk without walker, in and out of car independent PT-OP-C Subjective Start: 06/08/22 12:11 Freq: Status: Active Protocol: Document 09/06/22 09:45 NBM (Rec: 09/06/22 10:59 NBM [id number]) OP-PT Subjective Patient Comments Patient Comments Pt reports his family came to visit over the weekend. He mainly used the 3WW but he did use the 2 canes once for a small road trip with his son which went fine. He wants to be able to use one cane and has been practicing with using his 3WW with only his R hand and it helps him stand up straighter. I'd be lying if I said I did all the exercises. PT-OP-D Balance Start: 06/08/22 12:11 Freq: Status: Active Protocol: Document 06/09/22 09:49 [facility] (Rec: 06/14/22 17:24 [facility] [id number]) OP-PT Balance Assessment Sitting Balance Static Sitting Balance Ability Normal Dynamic Sitting Balance Ability Normal Standing Balance Static Standing Balance Ability Fair Dynamic Standing Balance Ability Poor Lester Balance Assessment Evaluation Sitting to Standing Ability Independent w/Hands Unsupported Stance Supervision- 2 minutes Sitting Unsupported, Feet on Floor Safely- 2 minutes Standing to Sitting Ability Assist, Use Legs on Chair Transfer Ability Safely, Hand Use Unsupported Stance- Eyes Closed Supervision, 10 seconds Unsupported Stance- Eyes Open Supervision to maintain Reaching Forward Standing Safely, 5 inches Pick- Up Object From Floor Requires Supervision Look Behind Shoulder - Standing Turns Sideways Only Turning 360 Degrees Requires Assistance Unsupported Stance, Alternating Feet on Assist to Prevent Fall Stair Unsupported Tandem Stance Balance Lost- Step/Stand Unilateral Leg Stance Unable,assist to not fall Total Score Lester Total Score (out of 56 points) 27 Cadet Fall Scale Copyright Permission PT-OP-E Functional Tests Start: 06/08/22 12:11 Freq: Status: Active Protocol: Document 06/09/22 09:49 [facility] (Rec: 06/14/22 17:24 [facility] [id number]) Functional Tests Timed Up and Go (TUG) Score 22 sec Comments 4WW PT-OP-G Mobility & Gait Start: 06/08/22 12:11 Freq: Status: Active Protocol: Document 06/09/22 09:49 [facility] (Rec: 06/14/22 17:24 [facility] [id number]) OP Mobility Evaluation Bed Mobility Rolling indep Supine to and from Sit indep OP Gait Assessment Gait Gait Assistance Required: Independent Assistive Devices Assistive Device 4 Wheeled Walker Orthotic/Prosthetic Devices or Brace: No Gait Deviations General Gait Pattern Ataxic,Decreased Stride Length ,Decreased Feet Clearance, Flexed Trunk,Wide Based Gait Factors Limiting Gait Function Factors Limiting Gait Function Abnormal Tonal Influences, Decreased Sensation,Decreased Strength,Poor Balance Stair Climbing Evaluation Technique/Endurance Stair Climbing Direction Ascend and Descend Comments Stair Climbing Comments sideways holding railing PT-OP-H Neuro Start: 06/08/22 12:11 Freq: Status: Active Protocol: Document 06/09/22 09:49 [facility] (Rec: 06/14/22 17:24 [facility] [id number]) Sensation Evaluation Gross Sensation Gross Sensation Left LE Impaired,Right LE Impaired Sensation Description Numbness PT-OP-J Posture/Palpation/Skin Start: 06/08/22 12:11 Freq: Status: Active Protocol: Document 06/09/22 09:49 [facility] (Rec: 06/14/22 17:24 [facility] [id number]) Posture Evaluation Position Standing Head/C-Spine Posture Forward Head T-Spine Posture Increased Kyphosis L-Spine Posture Flattened Skin Assessment Incisional Assessment Incision Appearance/Comments well-healed, decreased scar mobility PT-OP-K Range of Motion Start: 06/08/22 12:11 Freq: Status: Active Protocol: Document 06/09/22 09:49 [facility] (Rec: 06/14/22 17:24 [facility] [id number]) Cervical Spine Range of Motion Cervical Spine Active Testing Position Sitting ROM Limitations Soft Tissue Tightness Comments approx 75% Shoulder Goniometric Range of Motion Shoulder john Shoulder ROM WFL No Comments mild dec all motions Shoulder ROM Limitations Shoulder ROM Limitations Muscle Weakness Elbow/Forearm Range of Motion Elbow/Forearm john Elbow/Forearm ROM WFL Yes Wrist Goniometric Range of Motion Wrist john Wrist ROM WFL Yes Hip Goniometric Range of Motion Hip john Hip ROM WFL No Flexion w/Knee Flexed 90 Straight Leg Raise 65 Extension 0 Abduction 2 Internal Rotation 15 External Rotation 45 Hip ROM Limitations Hip ROM Limitations Soft Tissue Tightness,Muscle Weakness Knee Goniometric Range of Motion Knee john Knee ROM WFL Yes Ankle and Foot Goniometric Range of Motion Ankle and Foot john Dorsiflexion with Knee Flexed 5 Dorsiflexion with Knee Extended 0 Ankle and Foot ROM Limitations ROM Limitations Soft Tissue Tightness PT-OP-M Strength Start: 06/08/22 12:11 Freq: Status: Active Protocol: Document 06/09/22 09:49 [facility] (Rec: 06/14/22 17:24 [facility] [id number]) Cervical Spine Strength Cervical Spine Manual Muscle Testing Testing Position Sitting Flexion (C1-2) 4+ Good+ Extension 4+ Good+ Rotation Left 4+ Good+ Rotation Right 4+ Good+ Lateral Flexion Left (C3) 4+ Good+ Lateral Flexion Right (C3) 4+ Good+ Trunk Strength Trunk Manual Muscle Testing Flexion 3+ Fair+ Extension 3+ Fair+ Shoulder Strength Shoulder Manual Muscle Testing john Flexion 4 Good Extension 4 Good Abduction (C5) 4 Good External Rotation 4 Good Internal Rotation 4 Good Elbow/Forearm Strength Elbow and Forearm Manual Muscle Testing john Flexion (C6) 4+ Good+ Extension (C7) 4+ Good+ Hip Strength Hip Manual Muscle Testing john Flexion (L2) 4 Good Extension (S1) 3+ Fair+ Adduction 4 Good External Rotation 3+ Fair+ Internal Rotation 4 Good Knee Strength Knee Manual Muscle Testing john Flexion (S2) 4- Good- Extension (L3) 4- Good- Ankle/Foot Strength Ankle and Foot Manual Muscle Testing john Dorsiflexion (L4) 4 Good Plantarflexion (S1) 4 Good PT-OP-Q Treatments Start: 06/08/22 12:11 Freq: Status: Active Protocol: Document 09/06/22 09:45 NB (Rec: 09/06/22 10:59 NBM [id number]) Cardio Equipment Recumbent Stepper (Sci-Fit) Duration (Minutes) 5 Resistance 2.5 Seat Position 12 Other LE's only Gym Equipment Shuttle Recovery heel raises Details john Resistance 50# Reps/Time 2x10, excessive supination R Unilateral Squats Details john Resistance 50 Reps/Time 10x2 ea Bilateral Squats Resistance 75 Shuttle Recovery Platform Stable,Unstable Reps/Time 10x2 w/ball squeeze, 10 unstable w/ ball squeeze Therapeutic Exercises Supine Exercises hip flexor stretch Supine Exercise Name Cedrick position Side bilateral Equipment Used hi-lo table Reps/Minutes x60s each Comments cued PPT first. R>L tightness pec stretch Supine Exercise Name W position Side bilateral Equipment Used towel roll bilaterally under UE, 3 pillows Reps/Minutes x60s ea hamstring stretch Supine Exercise Name on shuttle recovery Side bilateral Reps/Minutes x30 ea Comments palpable tightness Sitting Exercises ankle DF, EV Sitting Exercise Name HEP: R>L Side bilateral Resistance TB #3 Reps/Minutes 2x10 each Comments cued slow con/eccentric control assist DF ft clearance Gait Training Gait Activity 2 SPC Device Used SPC x 2 Level of Assistance CGA Surface tile, carpet Distance/Duration ~200 ft x 2 SPC Treatment Focus gait sequencing, safety, posturing Comments cued upright posture w/ distant focal point, increase push-off through R hallux to improve excessive supination. Self-Care/Home Management Treatment Education Patient Education Body Mechanics,Fall Risk,Home Exercise Program,Safety Other Education Explained to pt how resisted ankle ex's and overall HEP can translate to improved balance , posture and gait to reduce overall fall risk. PT-OP-T Assessment and Plan Start: 06/08/22 12:11 Freq: Status: Active Protocol: Document 09/06/22 09:45 NBM (Rec: 09/06/22 10:59 NBM [id number]) Physical Therapy Assessment Impairments Impairments Balance,Coordination, Functional Mobility,Gait, Strength,Transfers Goals Five Impairment flexibility Impairment Decreased LE flexibility impacting step and stride length Short Term Goal (STG) Patient to be instr in HEP for LE flexibility STG Duration 10/02/22 Alf Goal (LTG) Patient to be independent and compliant with above HEP and functionally demonstrate improved ROM for gait quality and safety LTG Duration 11/01/22 Four Impairment patient unable to golf due to weakness, gait and balance dysfunction Short Term Goal (STG) Patient to improve functional strength, gait, and balance sufficient to be able to put golf ball on tonja with CGA and hit ball with min assist for balance 08/09/22: goal met using UE support, much effort. STG Duration goal met Fingernail Technician Goal (LTG) Patient will improve his functional strength, gait, and balance to be able to play golf with supervision only 09/01/22: goal progress, not met LTG Duration 11/11/22 Three Impairment trunk and LE weakness Impairment requires use of UE's for all transfers Short Term Goal (STG) Patient to be instructed in HEP to support therapy activities in the clinic and demonstrate compliance 08/09/22: goal met STG Duration goal met Alf Goal (LTG) Improve patient's functional strength as evidenced by ability to transfer sit to stand from standard height chair without use of UE's x 10 08/16/22: Pt completes 8 reps from mesh chair w/ thigh support Jay and cues for scooting to edge of chair, anterior weightshifting and glute activation; vc for controlled descent. Blue foam added and pt can perform x10 without UE support, cues for controlled descent last inch. 09/01/22: good goal progress, not fully achieved LTG Duration 11/11/22 Two Impairment gait dysfunction Impairment uses 4WW, 3WW primarily, has to go up and down stairs sideways 6 min walk test with 3WW 681 ft Short Term Goal (STG) Patient will be able to safely ascend and descend stairs with alternating pattern and begin gait training with 2 canes on level surfaces 06/25/22: receiprical stepping BHR SBA x8 stairs, side stepping BUE on L HR (home patterning), 170 ft B canes SBA. 08/09/22: goal met STG Duration goal met Alf Goal (LTG) Patient will be able to ambulate on all usual surfaces safely with 1-2 canes and improve 6 min walk test to at least 1000 ft to improve ability to ambulate successfully in the community. 09/01/22: goal progress though not able to test 6 min walk test today due to patient not having transportation; will testnext session. Patient doesn't feel stable enough to ambulate outdoors at home with canes and lives alone LTG Duration 11/11/22 One Impairment balance dysfunction Impairment Lester Balance score 27/56 indicating high fall risk Short Term Goal (STG) Improve Lester balance score to at least 37/56 to decrease risk of falls 08/09/22: goal progress 09/01/22: not able to reassess today due to patient having no transportation. Is making functional progress STG Duration 10/02/22 Fingernail Technician Goal (LTG) Improve Lester Balance score to at least 45/56 to decrease risk of falls, allow for safe mobility in the home and community LTG Duration 11/01/22 Assessment Summary Assessment Pt loses ball during max LE flexion with bilateral squats on shuttle recovery x3 indicating hip adduction weakness, and requires cues for pushing through RLE with Unstable wobble board. Pt presents to PT with more forward flexed posture w/ 3WW than when he left PT on last visit 08/30/22. With gait with 2 canes pt was cued for upright posture w/ distant focal point and to increase push-off through R hallux to improve excessive supination. Explained to pt how resisted ankle ex's and overall HEP can translate to improved balance , posture and gait to reduce overall fall risk. Physical Therapy Plan Frequency and Duration Frequency of Treatment 2x/Week Duration of treatment (weeks) 8 Plan of Care Start Date 09/01/22 Plan of Care End Date 11/01/22 Therapeutic Interventions Therapeutic Interventions Balance Training,Gait Training ,Home Exercise Program,Manual Therapy,Neuromuscular Re- education,Patient/Caregiver Education,Self-Care/Home Management,Soft Tissue Mobilization,Therapeutic Activities,Therapeutic Exercises Next Visit Focus/Plan Next Note Type Treatment Note Next Visit Plan Review resisted ankle EV/DF strengthening (R>L). Consider gait with mirror and resisted hip abduction. POC: Continue PT, emphasis on gait training with canes, 1 cane, no cane, gait on uneven surfaces. Work on SLS, push- off phase of gait, gluteal strengthening, SLS. Consider floor transfer.
--- NOTE | 2022-09-09 10:51 | PT-OP ANOTE ---
cancelled; not feeling well
--- NOTE | 2022-09-13 12:02 | PT.OTN ---
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) Physical Therapy Treatment Note PT-OP-A Visit Information Start: 06/08/22 12:11 Freq: Status: Active Protocol: Document 09/13/22 09:41 NBM (Rec: 09/13/22 10:32 NBM [id number]) Out-Patient Physical Therapy Visit Information Visit Information Visit Type Treatment Note Visit Note next visit w/ PT Visit Start Time 09:45 Visit Stop Time 10:29 Total Visit Minutes 44 Visit Number 17 Number of PATIENT CARE Visits 4 Evaluation Information Evaluation Date 06/09/22 Precautions Precautions high fall risk PT-OP-B Current Condition Start: 06/08/22 12:11 Freq: Status: Active Protocol: Document 06/16/22 10:30 SAK (Rec: 06/16/22 11:18 SAK [id number]) Current Condition History of Current Condition Onset Date 04/12/21 Current Complaints weakness, balance and gait difficulty History of Current Condition Fell while walking, fractured T34. Had fusion, 5 wks [facility], then at at OR until July 23 2021. Was at [facility] until the end of January. Now at home on [address], 2 story [place]. Bedroom and bathroom on main floor. Uses 3WW, 4WW, has canes. Wants to wean off walker. Balance and fear of falling limit his mobility, has had a couple near falls since going home. Also has some nerve pain left ant and post chest. Was instructed in HEP, not doing theraband exercises. Is working on standing balance. Very little feeling in thighs, has some in lower legs and feet, the most feeling is in bottom of feet. On and off bowel and bladder issues. Prior Treatments and Tests 05/21/22: check-up at OR, all medical issues st able Treatment Goals Patient/Caregiver Goals play golf again, drive, walk without walker, in and out of car independent PT-OP-C Subjective Start: 06/08/22 12:11 Freq: Status: Active Protocol: Document 09/13/22 09:41 NBM (Rec: 09/13/22 10:32 NBBrandie [id number]) OP-PT Subjective Patient Comments Patient Comments Pt reports he had relatives visiting so he spent most of his weekend sitting and talking. He missed last appointment due to headache but it has resolved. PT-OP-D Balance Start: 06/08/22 12:11 Freq: Status: Active Protocol: Document 06/09/22 09:49 [facility] (Rec: 06/14/22 17:24 [facility] [id number]) OP-PT Balance Assessment Sitting Balance Static Sitting Balance Ability Normal Dynamic Sitting Balance Ability Normal Standing Balance Static Standing Balance Ability Fair Dynamic Standing Balance Ability Poor Lester Balance Assessment Evaluation Sitting to Standing Ability Independent w/Hands Unsupported Stance Supervision- 2 minutes Sitting Unsupported, Feet on Floor Safely- 2 minutes Standing to Sitting Ability Assist, Use Legs on Chair Transfer Ability Safely, Hand Use Unsupported Stance- Eyes Closed Supervision, 10 seconds Unsupported Stance- Eyes Open Supervision to maintain Reaching Forward Standing Safely, 5 inches Pick- Up Object From Floor Requires Supervision Look Behind Shoulder - Standing Turns Sideways Only Turning 360 Degrees Requires Assistance Unsupported Stance, Alternating Feet on Assist to Prevent Fall Stair Unsupported Tandem Stance Balance Lost- Step/Stand Unilateral Leg Stance Unable,assist to not fall Total Score Lester Total Score (out of 56 points) 27 Cadet Fall Scale Copyright Permission PT-OP-E Functional Tests Start: 06/08/22 12:11 Freq: Status: Active Protocol: Document 06/09/22 09:49 [facility] (Rec: 06/14/22 17:24 [facility] [id number]) Functional Tests Timed Up and Go (TUG) Score 22 sec Comments 4WW PT-OP-G Mobility & Gait Start: 06/08/22 12:11 Freq: Status: Active Protocol: Document 06/09/22 09:49 [facility] (Rec: 06/14/22 17:24 [facility] [id number]) OP Mobility Evaluation Bed Mobility Rolling indep Supine to and from Sit indep OP Gait Assessment Gait Gait Assistance Required: Independent Assistive Devices Assistive Device 4 Wheeled Walker Orthotic/Prosthetic Devices or Brace: No Gait Deviations General Gait Pattern Ataxic,Decreased Stride Length ,Decreased Feet Clearance, Flexed Trunk,Wide Based Gait Factors Limiting Gait Function Factors Limiting Gait Function Abnormal Tonal Influences, Decreased Sensation,Decreased Strength,Poor Balance Stair Climbing Evaluation Technique/Endurance Stair Climbing Direction Ascend and Descend Comments Stair Climbing Comments sideways holding railing PT-OP-H Neuro Start: 06/08/22 12:11 Freq: Status: Active Protocol: Document 06/09/22 09:49 [facility] (Rec: 06/14/22 17:24 [facility] [id number]) Sensation Evaluation Gross Sensation Gross Sensation Left LE Impaired,Right LE Impaired Sensation Description Numbness PT-OP-J Posture/Palpation/Skin Start: 06/08/22 12:11 Freq: Status: Active Protocol: Document 06/09/22 09:49 [facility] (Rec: 06/14/22 17:24 [facility] [id number]) Posture Evaluation Position Standing Head/C-Spine Posture Forward Head T-Spine Posture Increased Kyphosis L-Spine Posture Flattened Skin Assessment Incisional Assessment Incision Appearance/Comments well-healed, decreased scar mobility PT-OP-K Range of Motion Start: 06/08/22 12:11 Freq: Status: Active Protocol: Document 06/09/22 09:49 [facility] (Rec: 06/14/22 17:24 [facility] [id number]) Cervical Spine Range of Motion Cervical Spine Active Testing Position Sitting ROM Limitations Soft Tissue Tightness Comments approx 75% Shoulder Goniometric Range of Motion Shoulder john Shoulder ROM WFL No Comments mild dec all motions Shoulder ROM Limitations Shoulder ROM Limitations Muscle Weakness Elbow/Forearm Range of Motion Elbow/Forearm john Elbow/Forearm ROM WFL Yes Wrist Goniometric Range of Motion Wrist john Wrist ROM WFL Yes Hip Goniometric Range of Motion Hip john Hip ROM WFL No Flexion w/Knee Flexed 90 Straight Leg Raise 65 Extension 0 Abduction 2 Internal Rotation 15 External Rotation 45 Hip ROM Limitations Hip ROM Limitations Soft Tissue Tightness,Muscle Weakness Knee Goniometric Range of Motion Knee john Knee ROM WFL Yes Ankle and Foot Goniometric Range of Motion Ankle and Foot john Dorsiflexion with Knee Flexed 5 Dorsiflexion with Knee Extended 0 Ankle and Foot ROM Limitations ROM Limitations Soft Tissue Tightness PT-OP-M Strength Start: 06/08/22 12:11 Freq: Status: Active Protocol: Document 06/09/22 09:49 [facility] (Rec: 06/14/22 17:24 [facility] [id number]) Cervical Spine Strength Cervical Spine Manual Muscle Testing Testing Position Sitting Flexion (C1-2) 4+ Good+ Extension 4+ Good+ Rotation Left 4+ Good+ Rotation Right 4+ Good+ Lateral Flexion Left (C3) 4+ Good+ Lateral Flexion Right (C3) 4+ Good+ Trunk Strength Trunk Manual Muscle Testing Flexion 3+ Fair+ Extension 3+ Fair+ Shoulder Strength Shoulder Manual Muscle Testing john Flexion 4 Good Extension 4 Good Abduction (C5) 4 Good External Rotation 4 Good Internal Rotation 4 Good Elbow/Forearm Strength Elbow and Forearm Manual Muscle Testing john Flexion (C6) 4+ Good+ Extension (C7) 4+ Good+ Hip Strength Hip Manual Muscle Testing john Flexion (L2) 4 Good Extension (S1) 3+ Fair+ Adduction 4 Good External Rotation 3+ Fair+ Internal Rotation 4 Good Knee Strength Knee Manual Muscle Testing john Flexion (S2) 4- Good- Extension (L3) 4- Good- Ankle/Foot Strength Ankle and Foot Manual Muscle Testing john Dorsiflexion (L4) 4 Good Plantarflexion (S1) 4 Good PT-OP-Q Treatments Start: 06/08/22 12:11 Freq: Status: Active Protocol: Document 09/13/22 09:41 [facility] (Rec: 09/13/22 10:32 [facility] [id number]) Cardio Equipment Recumbent Stepper (Sci-Fit) Duration (Minutes) 5 Resistance 2.7 Seat Position 12 Other LE's only Gym Equipment Shuttle Recovery heel raises Details john Resistance 50# Reps/Time 2x10, excessive supination R Bilateral Squats Resistance 50 Shuttle Recovery Platform Stable,Unstable Reps/Time 2x10 w/ball squeeze, 2x10 unstable w/ ball squeeze Therapeutic Exercises Supine Exercises calf stretch Supine Exercise Name on shuttle recovery, heels hanging off platform Side bilateral Reps/Minutes x30s ea Comments R>L tightness hamstring stretch Supine Exercise Name on shuttle recovery Side bilateral Reps/Minutes x30 ea Comments palpable tightness Sitting Exercises ankle DF, EV Sitting Exercise Name HEP: R>L Side bilateral Resistance TB #3 Reps/Minutes 2x10 each Comments cued slow con/eccentric control, no knee movement STS Sitting Exercise Name w/ blue foam on seat Equipment Used mesh chair, blue foam, thigh support ascend/descend w/ plow last 1 Reps/Minutes 10x Comments cue slow, eccentric control, glute squeeze, upright posture Gait Training Gait Activity 2 SPC Device Used SPC x 2 >SPC x1 Level of Assistance CGA Surface tile, carpet Distance/Duration ~120 ft SPCx2, ~120ft SPCx1 LUE, ~120ft SPCx1 RUE, ~30 ft SPCx1 LUE Treatment Focus gait sequencing, safety, posturing, step length, heel strike Comments cued upright posture w/ distant focal point. Pt is encouraged to use SPC in LUE due to smoother patterning, consistent sequencing, contralateral arm swing and improved upright posture as compared to SPC in RUE. Neuro Re-Education Treatment Balance Activities parker stepping Reps/Duration 6 hurdles x 5 laps Comments CGA 2 canes, max cues for R DF and hip flexion for foot clearance. Pt declines attempting w/ 1 SPC. PT-OP-T Assessment and Plan Start: 06/08/22 12:11 Freq: Status: Active Protocol: Document 09/13/22 09:41 [facility] (Rec: 09/13/22 10:32 [facility] [id number]) Physical Therapy Assessment Impairments Impairments Balance,Coordination, Functional Mobility,Gait, Strength,Transfers Goals Five Impairment flexibility Impairment Decreased LE flexibility impacting step and stride length Short Term Goal (STG) Patient to be instr in HEP for LE flexibility STG Duration 10/02/22 Microbiology Coordinator Goal (LTG) Patient to be independent and compliant with above HEP and functionally demonstrate improved ROM for gait quality and safety LTG Duration 11/01/22 Four Impairment patient unable to golf due to weakness, gait and balance dysfunction Short Term Goal (STG) Patient to improve functional strength, gait, and balance sufficient to be able to put golf ball on otnja with CGA and hit ball with min assist for balance 08/09/22: goal met using UE support, much effort. STG Duration goal met Microbiology Coordinator Goal (LTG) Patient will improve his functional strength, gait, and balance to be able to play golf with supervision only 09/01/22: goal progress, not met LTG Duration 11/11/22 Three Impairment trunk and LE weakness Impairment requires use of UE's for all transfers Short Term Goal (STG) Patient to be instructed in HEP to support therapy activities in the clinic and demonstrate compliance 08/09/22: goal met STG Duration goal met Microbiology Coordinator Goal (LTG) Improve patient's functional strength as evidenced by ability to transfer sit to stand from standard height chair without use of UE's x 10 08/16/22: Pt completes 8 reps from mesh chair w/ thigh support Jay and cues for scooting to edge of chair, anterior weightshifting and glute activation; vc for controlled descent. Blue foam added and pt can perform x10 without UE support, cues for controlled descent last inch. 09/01/22: good goal progress, not fully achieved LTG Duration 11/11/22 Two Impairment gait dysfunction Impairment uses 4WW, 3WW primarily, has to go up and down stairs sideways 6 min walk test with 3WW 681 ft Short Term Goal (STG) Patient will be able to safely ascend and descend stairs with alternating pattern and begin gait training with 2 canes on level surfaces 06/25/22: receiprical stepping BHR SBA x8 stairs, side stepping BUE on L HR (home patterning), 170 ft B canes SBA. 08/09/22: goal met STG Duration goal met [facility] Goal (LTG) Patient will be able to ambulate on all usual surfaces safely with 1-2 canes and improve 6 min walk test to at least 1000 ft to improve ability to ambulate successfully in the community. 09/01/22: goal progress though not able to test 6 min walk test today due to patient not having transportation; will testnext session. Patient doesn't feel stable enough to ambulate outdoors at home with canes and lives alone LTG Duration 11/11/22 One Impairment balance dysfunction Impairment Lester Balance score 27/56 indicating high fall risk Short Term Goal (STG) Improve Lester balance score to at least 37/56 to decrease risk of falls 08/09/22: goal progress 09/01/22: not able to reassess today due to patient having no transportation. Is making functional progress STG Duration 10/02/22 [facility] Goal (LTG) Improve Lester Balance score to at least 45/56 to decrease risk of falls, allow for safe mobility in the home and community LTG Duration 11/01/22 Assessment Summary Assessment Next visit w/ PT. Treatment focus on LE strengthening and gait w/ 2>1 SPC. Chirag's self- awareness of RLE foot clearance with hurdles improves with consistent cues for max dorsiflexion w/ hip flexion. Pt is encouraged to use SPC in LUE due to smoother patterning, consistent sequencing, contralateral arm swing and improved upright posture as compared to SPC in RUE. Physical Therapy Plan Frequency and Duration Frequency of Treatment 2x/Week Duration of treatment (weeks) 8 Plan of Care Start Date 09/01/22 Plan of Care End Date 11/01/22 Therapeutic Interventions Therapeutic Interventions Balance Training,Gait Training ,Home Exercise Program,Manual Therapy,Neuromuscular Re- education,Patient/Caregiver Education,Self-Care/Home Management,Soft Tissue Mobilization,Therapeutic Activities,Therapeutic Exercises Next Visit Focus/Plan Next Note Type Treatment Note Next Visit Plan Review resisted ankle EV/DF strengthening (R>L). Consider gait with mirror and resisted hip abduction. POC: Continue PT, emphasis on gait training with canes, 1 cane, no cane, gait on uneven surfaces. Work on SLS, push- off phase of gait, gluteal strengthening, SLS. Consider floor transfer.
--- NOTE | 2022-09-16 14:17 | PT.OTN ---
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) Physical Therapy Treatment Note PT-OP-A Visit Information Start: 06/08/22 12:11 Freq: Status: Active Protocol: Document 09/16/22 09:27 [facility] (Rec: 09/16/22 10:00 [facility] [id number]) Out-Patient Physical Therapy Visit Information Visit Information Visit Type Treatment Note Visit Start Time 09:29 Visit Stop Time 10:14 Total Visit Minutes 45 Visit Number 18 Number of FACTORY LAY OUT ENGINEER Visits 0 Precautions Precautions high fall risk PT-OP-B Current Condition Start: 06/08/22 12:11 Freq: Status: Active Protocol: Document 06/16/22 10:30 [facility] (Rec: 06/16/22 11:18 [facility] [id number]) Current Condition History of Current Condition Onset Date 04/12/21 Current Complaints weakness, balance and gait difficulty History of Current Condition Fell while walking, fractured T34. Had fusion, 5 wks [facility], then at at [place] until July 23 2021. Was at [facility] until the end of January. Now at home on [facility], 2 [address] [place]. Bedroom and bathroom on main floor. Uses 3WW, 4WW, has canes. Wants to wean off walker. Balance and fear of falling limit his mobility, has had a couple near falls since going home. Also has some nerve pain left ant and post chest. Was instructed in HEP, not doing theraband exercises. Is working on standing balance. Very little feeling in thighs, has some in lower legs and feet, the most feeling is in bottom of feet. On and off bowel and bladder issues. Prior Treatments and Tests 05/21/22: check-up at [place], all medical issues st able Treatment Goals Patient/Caregiver Goals play golf again, drive, walk without walker, in and out of car independent PT-OP-C Subjective Start: 06/08/22 12:11 Freq: Status: Active Protocol: Document 09/16/22 09:27 [facility] (Rec: 09/16/22 10:00 [facility] [id number]) OP-PT Subjective Patient Comments Patient Comments Going to [place] September 30, coming back in October. Will need to adjust schedule, cancel while gone. Fair compliance to HEP; states hard to get it into his head that doing exercises will help with his walking. PT-OP-D Balance Start: 06/08/22 12:11 Freq: Status: Active Protocol: Document 06/09/22 09:49 [facility] (Rec: 06/14/22 17:24 [facility] [id number]) OP-PT Balance Assessment Sitting Balance Static Sitting Balance Ability Normal Dynamic Sitting Balance Ability Normal Standing Balance Static Standing Balance Ability Fair Dynamic Standing Balance Ability Poor Lester Balance Assessment Evaluation Sitting to Standing Ability Independent w/Hands Unsupported Stance Supervision- 2 minutes Sitting Unsupported, Feet on Floor Safely- 2 minutes Standing to Sitting Ability Assist, Use Legs on Chair Transfer Ability Safely, Hand Use Unsupported Stance- Eyes Closed Supervision, 10 seconds Unsupported Stance- Eyes Open Supervision to maintain Reaching Forward Standing Safely, 5 inches Pick- Up Object From Floor Requires Supervision Look Behind Shoulder - Standing Turns Sideways Only Turning 360 Degrees Requires Assistance Unsupported Stance, Alternating Feet on Assist to Prevent Fall Stair Unsupported Tandem Stance Balance Lost- Step/Stand Unilateral Leg Stance Unable,assist to not fall Total Score Lester Total Score (out of 56 points) 27 Cadet Fall Scale Copyright Permission PT-OP-E Functional Tests Start: 06/08/22 12:11 Freq: Status: Active Protocol: Document 06/09/22 09:49 [facility] (Rec: 06/14/22 17:24 [facility] [id number]) Functional Tests Timed Up and Go (TUG) Score 22 sec Comments 4WW PT-OP-G Mobility & Gait Start: 06/08/22 12:11 Freq: Status: Active Protocol: Document 06/09/22 09:49 [facility] (Rec: 06/14/22 17:24 [facility] [id number]) OP Mobility Evaluation Bed Mobility Rolling indep Supine to and from Sit indep OP Gait Assessment Gait Gait Assistance Required: Independent Assistive Devices Assistive Device 4 Wheeled Walker Orthotic/Prosthetic Devices or Brace: No Gait Deviations General Gait Pattern Ataxic,Decreased Stride Length ,Decreased Feet Clearance, Flexed Trunk,Wide Based Gait Factors Limiting Gait Function Factors Limiting Gait Function Abnormal Tonal Influences, Decreased Sensation,Decreased Strength,Poor Balance Stair Climbing Evaluation Technique/Endurance Stair Climbing Direction Ascend and Descend Comments Stair Climbing Comments sideways holding railing PT-OP-H Neuro Start: 06/08/22 12:11 Freq: Status: Active Protocol: Document 06/09/22 09:49 [facility] (Rec: 06/14/22 17:24 [facility] [id number]) Sensation Evaluation Gross Sensation Gross Sensation Left LE Impaired,Right LE Impaired Sensation Description Numbness PT-OP-J Posture/Palpation/Skin Start: 06/08/22 12:11 Freq: Status: Active Protocol: Document 06/09/22 09:49 [facility] (Rec: 06/14/22 17:24 [facility] [id number]) Posture Evaluation Position Standing Head/C-Spine Posture Forward Head T-Spine Posture Increased Kyphosis L-Spine Posture Flattened Skin Assessment Incisional Assessment Incision Appearance/Comments well-healed, decreased scar mobility PT-OP-K Range of Motion Start: 06/08/22 12:11 Freq: Status: Active Protocol: Document 06/09/22 09:49 [facility] (Rec: 06/14/22 17:24 [facility] [id number]) Cervical Spine Range of Motion Cervical Spine Active Testing Position Sitting ROM Limitations Soft Tissue Tightness Comments approx 75% Shoulder Goniometric Range of Motion Shoulder john Shoulder ROM WFL No Comments mild dec all motions Shoulder ROM Limitations Shoulder ROM Limitations Muscle Weakness Elbow/Forearm Range of Motion Elbow/Forearm john Elbow/Forearm ROM WFL Yes Wrist Goniometric Range of Motion Wrist john Wrist ROM WFL Yes Hip Goniometric Range of Motion Hip john Hip ROM WFL No Flexion w/Knee Flexed 90 Straight Leg Raise 65 Extension 0 Abduction 2 Internal Rotation 15 External Rotation 45 Hip ROM Limitations Hip ROM Limitations Soft Tissue Tightness,Muscle Weakness Knee Goniometric Range of Motion Knee john Knee ROM WFL Yes Ankle and Foot Goniometric Range of Motion Ankle and Foot john Dorsiflexion with Knee Flexed 5 Dorsiflexion with Knee Extended 0 Ankle and Foot ROM Limitations ROM Limitations Soft Tissue Tightness PT-OP-M Strength Start: 06/08/22 12:11 Freq: Status: Active Protocol: Document 06/09/22 09:49 [facility] (Rec: 06/14/22 17:24 [facility] [id number]) Cervical Spine Strength Cervical Spine Manual Muscle Testing Testing Position Sitting Flexion (C1-2) 4+ Good+ Extension 4+ Good+ Rotation Left 4+ Good+ Rotation Right 4+ Good+ Lateral Flexion Left (C3) 4+ Good+ Lateral Flexion Right (C3) 4+ Good+ Trunk Strength Trunk Manual Muscle Testing Flexion 3+ Fair+ Extension 3+ Fair+ Shoulder Strength Shoulder Manual Muscle Testing john Flexion 4 Good Extension 4 Good Abduction (C5) 4 Good External Rotation 4 Good Internal Rotation 4 Good Elbow/Forearm Strength Elbow and Forearm Manual Muscle Testing john Flexion (C6) 4+ Good+ Extension (C7) 4+ Good+ Hip Strength Hip Manual Muscle Testing john Flexion (L2) 4 Good Extension (S1) 3+ Fair+ Adduction 4 Good External Rotation 3+ Fair+ Internal Rotation 4 Good Knee Strength Knee Manual Muscle Testing john Flexion (S2) 4- Good- Extension (L3) 4- Good- Ankle/Foot Strength Ankle and Foot Manual Muscle Testing john Dorsiflexion (L4) 4 Good Plantarflexion (S1) 4 Good PT-OP-Q Treatments Start: 06/08/22 12:11 Freq: Status: Active Protocol: Document 09/16/22 09:27 [facility] (Rec: 09/16/22 10:00 [facility] [id number]) Cardio Equipment Recumbent Stepper (Sci-Fit) Duration (Minutes) 6 Resistance 2.7 Seat Position 13 Other LE's only Gym Equipment Shuttle Recovery heel raises Details john Resistance 50# Reps/Time 2x10, excessive supination R; manual guidance for more neutral Bilateral Squats Resistance 75 Shuttle Recovery Platform Stable Reps/Time 2x10 w/ball squeeze Therapeutic Exercises Supine Exercises calf stretch Supine Exercise Name on shuttle recovery, heels hanging off platform Side bilateral Reps/Minutes x30s ea Comments R>L tightness Sitting Exercises ankle DF, EV Sitting Exercise Name verbal review importance of ankle ROM and strength for balance and gait Gait Training Gait Activity june Device Used SPC x 2 Level of Assistance CGA to min assist Surface firm carpet, tile Distance/Duration 50 ft Comments (small lift only LE's) SPC x 1 Device Used SPC left UE Level of Assistance SB to CGA Distance/Duration 200 ft Treatment Focus progression of dec support, safety Comments cues for upright posture, inc foot clearance, inc stride gait no device Device Used none Level of Assistance CG to min assist Surface firm carpet Distance/Duration 50' x 3 Treatment Focus dec support, safety Comments cues for upright posture, inc foot clearance, inc stride 2 SPC Device Used SPC x 2 Level of Assistance SB to CGA Distance/Duration 75' x 2 Treatment Focus progression of dec support, safety Comments cues for upright posture, inc foot clearance, inc stride Neuro Re-Education Treatment Balance Activities tandem gait Details CGA Surface firm carpet Equipment SPC x 2 Reps/Duration 3 min SLS Details opposite toe in contact with ground Surface firm carpet Equipment cabinet for right UE support PRN Reps/Duration 5 min Comments mirror for visual feedback, upright posture. PT-OP-T Assessment and Plan Start: 06/08/22 12:11 Freq: Status: Active Protocol: Document 09/16/22 09:27 [facility] (Rec: 09/16/22 10:00 [facility] [id number]) Physical Therapy Assessment Impairments Impairments Balance,Coordination, Functional Mobility,Gait, Strength,Transfers Goals Five Impairment flexibility Impairment Decreased LE flexibility impacting step and stride length Short Term Goal (STG) Patient to be instr in HEP for LE flexibility STG Duration 10/02/22 Shelter Goal (LTG) Patient to be independent and compliant with above HEP and functionally demonstrate improved ROM for gait quality and safety LTG Duration 11/01/22 Four Impairment patient unable to golf due to weakness, gait and balance dysfunction Short Term Goal (STG) Patient to improve functional strength, gait, and balance sufficient to be able to put golf ball on tonja with CGA and hit ball with min assist for balance 08/09/22: goal met using UE support, much effort. STG Duration goal met Snuff Maker Goal (LTG) Patient will improve his functional strength, gait, and balance to be able to play golf with supervision only 09/01/22: goal progress, not met LTG Duration 11/11/22 Three Impairment trunk and LE weakness Impairment requires use of UE's for all transfers Short Term Goal (STG) Patient to be instructed in HEP to support therapy activities in the clinic and demonstrate compliance 08/09/22: goal met STG Duration goal met Shelter Goal (LTG) Improve patient's functional strength as evidenced by ability to transfer sit to stand from standard height chair without use of UE's x 10 08/16/22: Pt completes 8 reps from mesh chair w/ thigh support Jay and cues for scooting to edge of chair, anterior weightshifting and glute activation; vc for controlled descent. Blue foam added and pt can perform x10 without UE support, cues for controlled descent last inch. 09/01/22: good goal progress, not fully achieved LTG Duration 11/11/22 Two Impairment gait dysfunction Impairment uses 4WW, 3WW primarily, has to go up and down stairs sideways 6 min walk test with 3WW 681 ft Short Term Goal (STG) Patient will be able to safely ascend and descend stairs with alternating pattern and begin gait training with 2 canes on level surfaces 06/25/22: receiprical stepping BHR SBA x8 stairs, side stepping BUE on L HR (home patterning), 170 ft B canes SBA. 08/09/22: goal met STG Duration goal met Shelter Goal (LTG) Patient will be able to ambulate on all usual surfaces safely with 1-2 canes and improve 6 min walk test to at least 1000 ft to improve ability to ambulate successfully in the community. 09/01/22: goal progress though not able to test 6 min walk test today due to patient not having transportation; will testnext session. Patient doesn't feel stable enough to ambulate outdoors at home with canes and lives alone LTG Duration 11/11/22 One Impairment balance dysfunction Impairment Lester Balance score 27/56 indicating high fall risk Short Term Goal (STG) Improve Lester balance score to at least 37/56 to decrease risk of falls 08/09/22: goal progress 09/01/22: not able to reassess today due to patient having no transportation. Is making functional progress STG Duration 10/02/22 Snuff Maker Goal (LTG) Improve Lester Balance score to at least 45/56 to decrease risk of falls, allow for safe mobility in the home and community LTG Duration 11/01/22 Assessment Summary Assessment Patient continues to struggle with HEP compliance, understanding that the HEP will benefit his function; gait and balance ability. Today verbalized improved understanding after further education by PT. Able to ambulate with no device short distances with CGA to min assist, encouraged in weaning from support safely at home using counter to practice. Physical Therapy Plan Frequency and Duration Frequency of Treatment 2x/Week Duration of treatment (weeks) 8 Plan of Care Start Date 09/01/22 Plan of Care End Date 11/01/22 Therapeutic Interventions Therapeutic Interventions Balance Training,Gait Training ,Home Exercise Program,Manual Therapy,Neuromuscular Re- education,Patient/Caregiver Education,Self-Care/Home Management,Soft Tissue Mobilization,Therapeutic Activities,Therapeutic Exercises Next Visit Focus/Plan Next Note Type Treatment Note Next Visit Plan Gait with mirror, resisted hip ab and ext. Consider floor transfer. Low parker step- overs. Cedrick stretch. Challenged balance activities and progression of gait on level and uneven.
--- NOTE | 2022-10-19 08:37 | PT.OPDS ---
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) Visit Care Team Role Provider Type Júnior Choi Rai, DO Non-Staff Specialty: Family Practice Address: [address] [place], [address] Email: Mariusz Hernandez MD Primary Care Provider Physician Specialty: Internal Medicine Address: [address] [place] [address], [address], [place], [address] Email: [email or web address] Provider Specialty: Address: Phone: Fax: Email: Adrienne Smith MD Attending Provider Non-Staff Referring Provider Specialty: Physical Medicine and Rehab Address: [address] [place], [address] Email: Visit Number Visit Number 18 Discharge Summary PT-OP-B Current Condition Start: 06/08/22 12:11 Freq: Status: Active Protocol: Document 06/16/22 10:30 [facility] (Rec: 06/16/22 11:18 [facility] [id number]) Current Condition History of Current Condition Onset Date 04/12/21 Current Complaints weakness, balance and gait difficulty History of Current Condition Fell while walking, fractured T34. Had fusion, 5 wks [facility], then at at [place] until July 23 2021. Was at [facility] until the end of January. Now at home on [facility], 2 story [place]. Bedroom and bathroom on main floor. Uses 3WW, 4WW, has canes. Wants to wean off walker. Balance and fear of falling limit his mobility, has had a couple near falls since going home. Also has some nerve pain left ant and post chest. Was instructed in HEP, not doing theraband exercises. Is working on standing balance. Very little feeling in thighs, has some in lower legs and feet, the most feeling is in bottom of feet. On and off bowel and bladder issues. Prior Treatments and Tests 05/21/22: check-up at [place], all medical issues st able Treatment Goals Patient/Caregiver Goals play golf again, drive, walk without walker, in and out of car independent PT-OP-C Subjective Start: 06/08/22 12:11 Freq: Status: Active Protocol: Document 09/16/22 09:27 [facility] (Rec: 09/16/22 10:00 [facility] [id number]) OP-PT Subjective Patient Comments Patient Comments Going to [place] September 30, coming back in October. Will need to adjust schedule, cancel while gone. Fair compliance to HEP; states hard to get it into his head that doing exercises will help with his walking. PT-OP-D Balance Start: 06/08/22 12:11 Freq: Status: Active Protocol: Document 06/09/22 09:49 [facility] (Rec: 06/14/22 17:24 [facility] [id number]) OP-PT Balance Assessment Sitting Balance Static Sitting Balance Ability Normal Dynamic Sitting Balance Ability Normal Standing Balance Static Standing Balance Ability Fair Dynamic Standing Balance Ability Poor Lester Balance Assessment Evaluation Sitting to Standing Ability Independent w/Hands Unsupported Stance Supervision- 2 minutes Sitting Unsupported, Feet on Floor Safely- 2 minutes Standing to Sitting Ability Assist, Use Legs on Chair Transfer Ability Safely, Hand Use Unsupported Stance- Eyes Closed Supervision, 10 seconds Unsupported Stance- Eyes Open Supervision to maintain Reaching Forward Standing Safely, 5 inches Pick- Up Object From Floor Requires Supervision Look Behind Shoulder - Standing Turns Sideways Only Turning 360 Degrees Requires Assistance Unsupported Stance, Alternating Feet on Assist to Prevent Fall Stair Unsupported Tandem Stance Balance Lost- Step/Stand Unilateral Leg Stance Unable,assist to not fall Total Score Lester Total Score (out of 56 points) 27 Cadet Fall Scale Copyright Permission PT-OP-E Functional Tests Start: 06/08/22 12:11 Freq: Status: Active Protocol: Document 06/09/22 09:49 [facility] (Rec: 06/14/22 17:24 [facility] [id number]) Functional Tests Timed Up and Go (TUG) Score 22 sec Comments 4WW PT-OP-G Mobility & Gait Start: 06/08/22 12:11 Freq: Status: Active Protocol: Document 06/09/22 09:49 [facility] (Rec: 06/14/22 17:24 [facility] [id number]) OP Mobility Evaluation Bed Mobility Rolling indep Supine to and from Sit indep OP Gait Assessment Gait Gait Assistance Required: Independent Assistive Devices Assistive Device 4 Wheeled Walker Orthotic/Prosthetic Devices or Brace: No Gait Deviations General Gait Pattern Ataxic,Decreased Stride Length ,Decreased Feet Clearance, Flexed Trunk,Wide Based Gait Factors Limiting Gait Function Factors Limiting Gait Function Abnormal Tonal Influences, Decreased Sensation,Decreased Strength,Poor Balance Stair Climbing Evaluation Technique/Endurance Stair Climbing Direction Ascend and Descend Comments Stair Climbing Comments sideways holding railing PT-OP-H Neuro Start: 06/08/22 12:11 Freq: Status: Active Protocol: Document 06/09/22 09:49 [facility] (Rec: 06/14/22 17:24 [facility] [id number]) Sensation Evaluation Gross Sensation Gross Sensation Left LE Impaired,Right LE Impaired Sensation Description Numbness PT-OP-J Posture/Palpation/Skin Start: 06/08/22 12:11 Freq: Status: Active Protocol: Document 06/09/22 09:49 [facility] (Rec: 06/14/22 17:24 [facility] [id number]) Posture Evaluation Position Standing Head/C-Spine Posture Forward Head T-Spine Posture Increased Kyphosis L-Spine Posture Flattened Skin Assessment Incisional Assessment Incision Appearance/Comments well-healed, decreased scar mobility PT-OP-K Range of Motion Start: 06/08/22 12:11 Freq: Status: Active Protocol: Document 06/09/22 09:49 [facility] (Rec: 06/14/22 17:24 [facility] [id number]) Cervical Spine Range of Motion Cervical Spine Active Testing Position Sitting ROM Limitations Soft Tissue Tightness Comments approx 75% Shoulder Goniometric Range of Motion Shoulder john Shoulder ROM WFL No Comments mild dec all motions Shoulder ROM Limitations Shoulder ROM Limitations Muscle Weakness Elbow/Forearm Range of Motion Elbow/Forearm john Elbow/Forearm ROM WFL Yes Wrist Goniometric Range of Motion Wrist john Wrist ROM WFL Yes Hip Goniometric Range of Motion Hip john Hip ROM WFL No Flexion w/Knee Flexed 90 Straight Leg Raise 65 Extension 0 Abduction 2 Internal Rotation 15 External Rotation 45 Hip ROM Limitations Hip ROM Limitations Soft Tissue Tightness,Muscle Weakness Knee Goniometric Range of Motion Knee ojhn Knee ROM WFL Yes Ankle and Foot Goniometric Range of Motion Ankle and Foot john Dorsiflexion with Knee Flexed 5 Dorsiflexion with Knee Extended 0 Ankle and Foot ROM Limitations ROM Limitations Soft Tissue Tightness PT-OP-M Strength Start: 06/08/22 12:11 Freq: Status: Active Protocol: Document 06/09/22 09:49 [facility] (Rec: 06/14/22 17:24 [facility] [id number]) Cervical Spine Strength Cervical Spine Manual Muscle Testing Testing Position Sitting Flexion (C1-2) 4+ Good+ Extension 4+ Good+ Rotation Left 4+ Good+ Rotation Right 4+ Good+ Lateral Flexion Left (C3) 4+ Good+ Lateral Flexion Right (C3) 4+ Good+ Trunk Strength Trunk Manual Muscle Testing Flexion 3+ Fair+ Extension 3+ Fair+ Shoulder Strength Shoulder Manual Muscle Testing john Flexion 4 Good Extension 4 Good Abduction (C5) 4 Good External Rotation 4 Good Internal Rotation 4 Good Elbow/Forearm Strength Elbow and Forearm Manual Muscle Testing john Flexion (C6) 4+ Good+ Extension (C7) 4+ Good+ Hip Strength Hip Manual Muscle Testing john Flexion (L2) 4 Good Extension (S1) 3+ Fair+ Adduction 4 Good External Rotation 3+ Fair+ Internal Rotation 4 Good Knee Strength Knee Manual Muscle Testing john Flexion (S2) 4- Good- Extension (L3) 4- Good- Ankle/Foot Strength Ankle and Foot Manual Muscle Testing john Dorsiflexion (L4) 4 Good Plantarflexion (S1) 4 Good PT-OP-T Assessment and Plan Start: 06/08/22 12:11 Freq: Status: Active Protocol: Document 10/19/22 08:36 [facility] (Rec: 10/19/22 08:37 [facility] [id number]) Physical Therapy Plan Discharge Physical Therapy Discharge Reasons Patient Request Discharge Comments patient to contact MD for new referral for PT when he returns from being away
== END 2022-10-20 14:18 | disposition home or self-care (01) ==
LOC: PHYS 09:30
PROVIDERS: Absent Provider Family Medicine; PCP Internal Medicine; Referring Provider Physical Medicine & Rehabilitation Spinal Cord Injury Medicine; Visit Provider Physical Medicine & Rehabilitation Spinal Cord Injury Medicine
DX: G82.22 Paraplegia, incomplete (principal); G82.20 Paraplegia, unspecified
CPT/HCPCS: 97110; 97112; 97116; 97163; 97530; 97535

== ENCOUNTER → 2023-11-09 09:59 | Outpatient (CLI) | payer MEDICARE, OTHER, SELFPAY ==
[2023-11-09 11:30] LABS: Hemoglobin A1C% w Est Avg Glu 5.8 % (4.0-6.0)
[2023-11-09 12:32] LABS: Alanine Aminotransferase 14 IU/L (<50); Albumin Globulin Ratio 1.8 (1.0-2.8); Alkaline Phosphatase 91 U/L (38-126); Aspartate Aminotransferase 17 IU/L (17-59); BUN Creatinine Ratio 27.4 (6-22); Bilirubin Total 0.6 mg/dL (0.2-1.3); Blood Urea Nitrogen 26 mg/dL (9-20); Carbon Dioxide 29 mmol/L (22-32); Chloride 106 mmol/L (98-107); Cholesterol 208 mg/dL (140-199); Estimated Glomerular Filt Rate > 60 mL/min (>60); Globulin 2.2 g/dL (1.7-4.1); Glucose 104 mg/dL (80-110); HDL Cholesterol 51 mg/dL (40-60); HEMOLYSIS < 15 (0-50); LDL Cholesterol Calculated 126 mg/dL (<100); Potassium 4.3 mmol/L (3.4-5.1); Sodium 140 mmol/L (137-145); Total Protein 6.2 g/dL (6.3-8.2); Triglycerides 157 mg/dL (35-150)
[2023-11-14 08:10] LABS: Percent Free Testosterone 2.62 % (1.50-4.20); Testosterone Free 6.01 ng/dL (5.00-21.00); Testosterone Total 229.2 ng/dL (264.0-916.0)
== END ==
PROVIDERS: PCP Internal Medicine; Referring Provider Internal Medicine; Visit Provider Internal Medicine
DX: R73.03 Prediabetes (principal); N18.31 Chronic kidney disease, stage 3a; E29.1 Testicular hypofunction
CPT/HCPCS: 36415; 80053; 80061; 83036; 84402; 84403

== ENCOUNTER → 2024-12-27 11:47 | Outpatient (CLI) | payer MEDICARE, OTHER, SELFPAY | PROVIDERS: Family Provider Internal Medicine; PCP Internal Medicine; Referring Provider Internal Medicine; Visit Provider Internal Medicine | DX: R26.89 Other abnormalities of gait and mobility (principal) | CPT/HCPCS: 95886; 95908 ==